=== PATIENT | male | born 1975 | race Caucasian/White ===

== ENCOUNTER 2017-01-06 07:55 | Day surgery (SDC) | payer MEDICARE, OTHER ==
[2016-12-31 15:57] VITALS: BMI 36.5
[~2017-01-06 07:55] MED LIST: LACTATED RINGERS 1,000 ML IV SCH; LIDOCAINE 1% 20 ML VIAL (10MG/ML) FOR IV START INTRADERMA PRN
[2017-01-06 08:18] VITALS: RESP 16; TEMP 98.6
[2017-01-06] MEDS ORDERED: LIDOCAINE 1% INJ 10MG/ML (20 ML MDV) ONE (08:49)
[2017-01-06] MEDS ORDERED: PROPOFOL 10 MG/ML 20 ML VIAL IV ONE (08:49)
--- NOTE | 2017-01-06 08:53 | P.GSHP ---
History of Present Illness H&P Date: 01/06/17 Chief Complaint: GI bleed This a 41-year-old male referred from Dr. Leonor blount. Patient presents today for colonoscopy. He's had issues with rectal bleeding. - Constitutional Constitutional: Reports as per HPI Past Medical History Past Medical History: Thyroid Disorder Additional Past Medical History / Comment(s): CONSTIPATION, BLOOD IN STOOL, CHRONIC BACK PAIN, History of Any Multi-Drug Resistant Organisms: None Reported Past Surgical History: Back Surgery, Cholecystectomy, Orthopedic Surgery Additional Past Surgical History / Comment(s): RT KNEE ARTHROSCOPY Past Anesthesia/Blood Transfusion Reactions: No Reported Reaction Past Psychological History: No Psychological Hx Reported Smoking Status: Current every day smoker Past Alcohol Use History: Rare Additional Past Alcohol Use History / Comment(s): STARTED SMOKING IN 20'S, SMOKES 5-6 CIGARETTES A DAY Past Drug Use History: None Reported - Past Family History Mother Family Medical History: No Reported History Medications and Allergies Home Medications Medication Instructions Recorded Confirmed Type Levothyroxine 0.5 mg PO DAILY 12/31/16 01/06/17 History Allergies Allergy/AdvReac Type Severity Reaction Status Date / Time Penicillins Allergy Unknown Verified 01/06/17 08:03 Childhood pregabalin [From Lyrica] Allergy Dyspnea Verified 01/06/17 08:03 codeine AdvReac Nausea & Verified 01/06/17 08:03 Vomiting Surgical - Exam Vital Signs Temp Pulse Resp BP Pulse Ox 98.6 F 110 H 16 137/81 95 01/06/17 08:16 01/06/17 08:16 01/06/17 08:16 01/06/17 08:16 01/06/17 08:16 - General well developed, no distress - Eyes PERRL - ENT normal pinna - Neck no masses - Respiratory normal expansion - Cardiovascular Rhythm: regular - Abdomen Abdomen: soft, non tender Assessment and Plan Plan: Family. We'll perform flexible colonoscopy.
--- NOTE | 2017-01-06 09:08 | P.OP ---
Date of Procedure: 01/06/17 Preoperative Diagnosis: GI bleed Postoperative Diagnosis: Internal and external hemorrhoids Procedure(s) Performed: Colonoscopy Anesthesia: MAC Surgeon: Cristian Huggins Pathology: none sent Condition: stable Disposition: PACU Description of Procedure: Patient's placed on the endoscopy table lateral position. He received IV sedation. Digital rectal exam was performed which revealed internal and external hemorrhoids. The prostate was symmetrical without nodules. Flexible colonoscope was then placed patient anus passed throughout the entire colon. The ileocecal valve was visualized. The cecum, ascending and transverse and descending colon appeared normal. Sigmoid colon and rectum was normal. There is no blood seen in the colon. There no polyps or diverticula. Scope was withdrawn and internal and external hemorrhoids noted.
[2017-01-06 09:30] VITALS: BP 118/76; PULSE 75
== END 2017-01-06 09:42 | disposition home or self-care (01) ==
LOC: ORWHC2ENDO 07:55
PROVIDERS: ATTEND Surgery
DX: K64.8 Other hemorrhoids (principal); K64.4 Residual hemorrhoidal skin tags; K92.1 Melena; E07.9 Disorder of thyroid, unspecified; F17.210 Nicotine dependence, cigarettes, uncomplicated; Z88.5 Allergy status to narcotic agent; Z88.0 Allergy status to penicillin; Z88.8 Allergy status to other drugs, medicaments and biological substances; Z79.899 Other long term (current) drug therapy
CPT/HCPCS: 45378; J2001; J2704

== ENCOUNTER 2018-02-15 07:43 | Day surgery (SDC) | payer MEDICARE ==
[2018-02-11 14:51] VITALS: BMI 36.0
[2018-02-15 08:27] VITALS: TEMP 96.6
[2018-02-15] MEDS: LACTATED RINGERS 1,000 ML IV SCH ×2 (08:32→08:35)
[2018-02-15] MEDS ORDERED: GLYCOPYRROLATE 0.2 MG/ML 2 ML VIAL ONE (08:39)
[2018-02-15] MEDS ORDERED: LIDOCAINE 1% INJ 10MG/ML (20 ML MDV) ONE (08:39)
[2018-02-15] MEDS ORDERED: PROPOFOL 10 MG/ML 20 ML VIAL IV ONE (08:39)
--- NOTE | 2018-02-15 08:43 | P.GSHP ---
History of Present Illness H&P Date: 02/15/18 Chief Complaint: Dysphagia This is a 42-year-old male referred from Dr. Leonor blount. Patient does today for EGD. He's had some issues of dysphagia. Patient feels like food is being stuck in his upper and lower esophagus. He denies any significant history of heartburn. Past Medical History Past Medical History: Osteoarthritis (OA), Thyroid Disorder Additional Past Medical History / Comment(s): CHRONIC BACK PAIN, MIGRAINE HEADACHE ,SOME TROUBLE SWALLOWING History of Any Multi-Drug Resistant Organisms: None Reported Past Surgical History: Back Surgery, Cholecystectomy, Orthopedic Surgery Additional Past Surgical History / Comment(s): RT KNEE ARTHROSCOPY Past Anesthesia/Blood Transfusion Reactions: No Reported Reaction Smoking Status: Current every day smoker - Past Family History Mother Family Medical History: No Reported History Medications and Allergies Home Medications Medication Instructions Recorded Confirmed Type Levothyroxine Sodium [Synthroid] 50 mcg PO DAILY 02/11/18 02/15/18 History Allergies Allergy/AdvReac Type Severity Reaction Status Date / Time Penicillins Allergy Unknown Verified 02/15/18 08:21 Childhood pregabalin [From Lyrica] Allergy Dyspnea Verified 02/15/18 08:21 codeine AdvReac Nausea & Verified 02/15/18 08:21 Vomiting Surgical - Exam Vital Signs Temp Pulse Resp BP Pulse Ox 96.6 F L 102 H 18 123/79 95 02/15/18 08:25 02/15/18 08:25 02/15/18 08:25 02/15/18 08:25 02/15/18 08:25 - General well developed, no distress - Eyes PERRL - ENT normal pinna - Neck no masses - Respiratory normal expansion - Cardiovascular Rhythm: regular - Abdomen Abdomen: soft, non tender Assessment and Plan Assessment: Dysphagia. We'll perform EGD.
--- NOTE | 2018-02-15 08:56 | P.OP ---
Date of Procedure: 02/15/18 Preoperative Diagnosis: Dysphagia Postoperative Diagnosis: Antral gastritis Retained gastric food No evidence of hiatal hernia Procedure(s) Performed: EGD Anesthesia: MAC Surgeon: Cristian Huggins Pathology: other (Antrum, esophagus) Condition: stable Disposition: PACU Description of Procedure: The patient's placed on the endoscopy table in the lateral position. He received IV sedation. The gastroscope placed oropharynx and passed into the esophagus into the stomach. Scope was then placed through the pylorus. The first and second portion of the duodenum appeared normal. Scope was then brought back the antrum and this appeared mildly inflamed. A biopsies performed. The scope was then retroflexed and the remainder of the stomach appeared normal. There was no significant hiatal hernia. The GE junction was at 40 cm. The distal esophagus appeared normal a biopsies performed. The proximal esophagus appeared normal. Scope was withdrawn from patient.
[2018-02-15 09:15] VITALS: BP 124/85; PULSE 86; RESP 16
== END 2018-02-15 09:39 | disposition home or self-care (01) ==
LOC: ORWHC2ENDO 07:43
PROVIDERS: ATTEND Surgery
DX: K29.50 Unspecified chronic gastritis without bleeding (principal); K20.9 Esophagitis, unspecified; M19.90 Unspecified osteoarthritis, unspecified site; E07.9 Disorder of thyroid, unspecified; M54.9 Dorsalgia, unspecified; G89.29 Other chronic pain; G43.909 Migraine, unspecified, not intractable, without status migrainosus; F17.200 Nicotine dependence, unspecified, uncomplicated; Z79.890 Hormone replacement therapy; Z88.0 Allergy status to penicillin; Z88.8 Allergy status to other drugs, medicaments and biological substances; Z88.5 Allergy status to narcotic agent
CPT/HCPCS: 88305; 43239; J2001; J2704

== ENCOUNTER → 2018-02-17 | Outpatient (CLI) | payer MEDICARE ==
--- NOTE | 2018-02-17 11:48 | FL ---
EXAMINATION: Cervical and Thoracic Esophagram DATE OF EXAM: 02/17/2018 CLINICAL INDICATION: 42-year-old male with trouble swallowing and upper abdominal bloating. Dysphagia . Slow digestion for 2 months. COMPARISON: None Total Fluoroscopy Time: 1 minute 2 seconds Total images: 23 FINDINGS: The swallowing mechanism is normal and hypopharyngeal anatomy is preserved. The cervical and thoracic portions have a normal course and caliber and normal motility. The mucosa is normal and no persistent filling defect is encountered. No hiatal hernia is present. No gastroesophageal reflux is identified after Valsalva and positional maneuvers. IMPRESSION: Unremarkable esophagram.
== END | disposition home or self-care (01) ==
LOC: RADFLMAIN 10:34
PROVIDERS: ATTEND Surgery
DX: R13.10 Dysphagia, unspecified (principal)
CPT/HCPCS: 74220

== ENCOUNTER → 2020-03-28 | Outpatient (CLI) | payer MEDICARE ==
[2020-03-28 07:50] LABS: African American GFR (CKD) >90 (>60 ml/min/1.73 sqM); Blood Urea Nitrogen 6 mg/dL (9-20); Non-African American GFR(CKD) >90 (>60 ml/min/1.73 sqM)
--- NOTE | 2020-03-28 09:32 | CT ---
EXAMINATION TYPE: CT abdomen wo/w con DATE OF EXAM: 03/28/2020 COMPARISON: 05/10/2013 HISTORY: 44-year-old male D4 9.519, Renal stromal tumor TECHNIQUE: Contiguous axial scanning of the abdomen and pelvis following administration of 100 ml Omn ipaque 300 IV contrast. Delayed images through the kidneys and coronal/sagittal reconstructions perf ormed. CT DLP: 2367 mGycm Automated exposure control for dose reduction was used. FINDINGS: Heart normal size without pericardial effusion. Bilateral calcified hilar lymph nodes and scattered c alcified pulmonary nodules compatible with prior granulomatous disease. No pleural effusion. Diffuse low attenuation of the hepatic parenchyma compatible with fatty infiltration. Portal venous s ystem is patent. No biliary ductal dilatation. Cholecystectomy clips. Adrenal glands, left kidney, and pancreas appear within normal limits. Spleen mildly enlarged at 14.8 cm on coronal series. Right kidney shows a very subtle round cortical hypodensity measuring approximately 2.2 cm located al bonnie the anterior upper to mid pole. In retrospect, this seems to have measured 1.4 cm on 05/10/2013. No dilated small bowel, free fluid, or free air. No mesenteric or retroperitoneal lymphadenopathy. Normal appendix. No significant stool burden. Partially visualized left-sided colonic diverticulosis. No pericolonic inflammatory change. Pelvis is not imaged. Bones: No osseous destructive process. IMPRESSION: 1. VERY SUBTLE ROUND 2.2 CM LESION in the anterior upper to mid pole of the right kidney. In retrospe ct, this may have measured 1.4 cm in 2013. A benign etiology is favored given the very indolent behav ior. Ongoing surveillance can be performed, consider follow-up every 1 - 2 years, possibly with MRI. 2. Mild left-sided colonic diverticulosis. 3. Mild splenic vein at 14.8 cm. 4. Hepatic steatosis. 5. Prior granulomatous disease in the chest.
== END | disposition home or self-care (01) ==
LOC: RADCTMAIN 06:40
PROVIDERS: ATTEND Family Medicine
DX: K57.30 Diverticulosis of large intestine without perforation or abscess without bleeding (principal); K76.0 Fatty (change of) liver, not elsewhere classified; N28.9 Disorder of kidney and ureter, unspecified; D49.519 Neoplasm of unspecified behavior of unspecified kidney
CPT/HCPCS: 82565; 84520; 74170; Q9967

== ENCOUNTER 2024-05-09 16:00 | Emergency (ER) | payer MEDICARE ==
[2024-05-09] MEDS ORDERED: KETOROLAC 15 MG/ML 1 ML VIAL ONE (18:40)
[2024-05-09] MEDS ORDERED: ORPHENADRINE 30 MG/ML 2 ML VIAL ONE (18:40)
--- NOTE | 2024-06-15 13:12 | XR ---
Patient Marco Castillo ID [id number] Order # EXAMINATION TYPE: XR knee complete RT DATE OF EXAM: 05/22/2024 COMPARISON: No comparison available on downtime PACS. HISTORY: Right knee injury TECHNIQUE: 3 view right knee FINDINGS: Joint spaces are preserved. No acute fracture or dislocation is evident. No joint effusion is evident. Soft tissues appear normal. Follow-up exams can be performed 7-10 days from acute trauma for continued pain. IMPRESSION: 1. No acute osseous abnormality right knee
== END 2024-05-09 21:05 | disposition home or self-care (01) ==
LOC: EC 16:00
CPT/HCPCS: 99283

== ENCOUNTER → 2024-05-13 | Outpatient (CLI) | payer MEDICARE | END | disposition home or self-care (01) | LOC: LABWHC1 11:31 | PROVIDERS: ATTEND Family Medicine | DX: Z01.818 Encounter for other preprocedural examination | CPT/HCPCS: 36415; 80051; 85025 ==

== ENCOUNTER 2024-05-19 12:30 | Day surgery (SDC) | payer MEDICARE ==
[~2024-05-19 12:30] MED LIST changes: +DEXAMETHASONE SOD PHOSPHATE 4 MG/ML 1 ML VIAL ONE; +LACTATED RINGERS 1,000 ML BAG ONE; -LACTATED RINGERS 1,000 ML IV SCH; -LIDOCAINE 1% 20 ML VIAL (10MG/ML) FOR IV START INTRADERMA PRN; +ONDANSETRON 4 MG/2 ML VIAL ONE
[2024-05-19] MEDS ORDERED: MIDAZOLAM 2 MG/2 ML VIAL ONE (12:35)
[2024-05-19] MEDS ORDERED: SUCCINYLCHOLINE CHLORIDE 200 MG/10 ML VIAL IV ONE (12:35)
[2024-05-19] MEDS ORDERED: HYDROmorphone (PF) 1 MG/ML ONE (12:35)
[2024-05-19] MEDS ORDERED: fentaNYL (PF) 50 MCG/ML 2 ML AMP ONE (12:35)
[2024-05-19] MEDS ORDERED: PROPOFOL 10 MG/ML 20 ML VIAL IV ONE (12:35)
[2024-05-19] MEDS ORDERED: LIDOCAINE 1% INJ 10MG/ML (20 ML MDV) ONE (12:35)
[2024-05-19] MEDS ORDERED: BUPIVACAINE (PF) 0.25% 30 ML VIAL ONE (12:40)
[2024-05-19] MEDS ORDERED: HYDROmorphone 0.5 MG/0.5 ML SYRINGE ONE ×2 (13:45→14:06)
[2024-05-19] MEDS ORDERED: METOPROLOL TARTRATE 5 MG/5 ML VIAL IVP ONE (14:26)
--- NOTE | 2024-06-17 09:58 | OP ---
OPERATIVE REPORT DATE OF SERVICE : 05/19/2024 PREOPERATIVE DIAGNOSIS: Internal derangement, right knee. POSTOPERATIVE DIAGNOSES: 1. Tear, medial and lateral meniscus, right knee. 2. Reactive synovitis, medial, lateral and suprapatellar compartments, right knee. PROCEDURES PERFORMED: 1. Arthroscopic partial medial and lateral meniscectomy, right knee. 2. Arthroscopic partial synovectomy, medial, lateral and suprapatellar compartments, right knee. ANESTHESIA: General. COMPLICATIONS: None. ESTIMATED BLOOD LOSS: 8 mL. The patient tolerated the procedure well. INDICATIONS: Marco Castillo is a gentleman seen with progressive right knee pain. We discussed options. He elected to proceed with arthroscopy. Consent was obtained. DESCRIPTION OF PROCEDURE: The patient was taken to the operative suite. He underwent a general anesthetic by the primary anesthesia. He received preoperative IV antibiotics. The right lower extremity was placed in a well-padded leg nunn. The right lower extremity was prepped and draped in normal sterile orthopedic fashion. A lateral parapatellar incision was made. Trocar was inserted. Arthroscopy initiated. Suprapatellar compartment revealed diffuse reactive synovitis. Patellofemoral joint articulated congruently with grade 1 chondromalacia. Scope was guided into lateral and the medial gutter, no loose bodies. Scope was guided into medial compartment. Medial parapatellar incision was made. Trocar inserted followed by a probe. There was a radial tear, posterior medial meniscus, grade 1 chondromalacia, medial femoral condyle, thick reactive synovitis anteriorly, no loose bodies. I performed a partial medial meniscectomy, getting down a stable meniscal tissue. I performed a partial synovectomy decompressing the reactive synovitis. The residual meniscus was probed and was found to be stable. There was good decompression of synovitis. The scope was not guided into the intercondylar notch. ACL and PCL were identified, probed stable. Scope was guided into the lateral compartment, small radial tear, midbody of lateral meniscus reactive synovitis anteriorly, no loose bodies. No significant chondromalacia. I performed a partial lateral meniscectomy, getting down a stable meniscal tissue. I performed a partial synovectomy decompressing the reactive synovitis. The shaver was removed. The residual meniscus was stable. There was good decompression of synovitis. The scope was now guided into the lateral gutter, no loose bodies. The scope was guided into the suprapatellar compartment. I introduced a motorized shaver. I performed a partial synovectomy decompressing the thick reactive synovitis. The shaver was removed. There was good decompression of the synovitis. I took 1 more look around the entire knee, no residual debris. Instruments were now removed from the knee. The portal sites were approximated with Steri-Strips. The joint was infiltrated with 0.25% plain Marcaine. Sterile dressings were applied followed by DARRON hose. The patient was awakened, transferred to a bed, then recovery in stable condition. MMODL / IJN: [id number] /
--- NOTE | 2024-06-20 10:13 | HP ---
HISTORY AND PHYSICAL DATE OF PROPOSED SURGERY: 05/19/2024. SUBJECTIVE: The patient is a gentleman seen with progressive right knee pain. We discussed options regarding treatment. He elected to proceed with right knee arthroscopy. Consent is obtained. PAST MEDICAL HISTORY: Noncontributory. PAST SURGICAL HISTORY: Noncontributory. MEDICATIONS: As per his chart. PHYSICAL EVALUATION OF THE RIGHT KNEE: Range of motion 0 to 130 degrees. Tenderness along the medial joint line. Positive medial Jamison's. Mild effusion. Distal neurovascular exam is intact. IMAGING STUDIES: Radiographs of the right knee revealed osteoarthritic changes. IMPRESSION: Internal derangement of right knee with medial meniscal tear. PLAN: Right knee arthroscopy with partial medial meniscectomy and debridement. MMODL / IJN: [id number] /
== END 2024-05-19 15:34 ==
LOC: OR 12:30
PROVIDERS: ATTEND Orthopaedic Surgery
DX: S83.241A Other tear of medial meniscus, current injury, right knee, initial encounter (principal); S83.281A Other tear of lateral meniscus, current injury, right knee, initial encounter; M65.161 Other infective (teno)synovitis, right knee; F17.210 Nicotine dependence, cigarettes, uncomplicated; Z88.0 Allergy status to penicillin; Z88.5 Allergy status to narcotic agent; Z79.890 Hormone replacement therapy; Z79.899 Other long term (current) drug therapy; X58.XXXA Exposure to other specified factors, initial encounter

== ENCOUNTER 2024-10-10 12:47 | Inpatient (IN) | payer MEDICARE ==
[2024-10-10] MEDS: SODIUM CHLORIDE 0.9% 1,000 ML IV ONE ×2 (13:23→17:50)
[2024-10-10] MEDS: IV FLUID CONTINUATION 1,000 ML IV ONE (17:50)
--- NOTE | 2024-10-10 20:08 | XR ---
EXAMINATION TYPE: XR chest 2V DATE OF EXAM: 10/10/2024 7:49 PM CLINICAL INDICATION:Male, 49 years old with history of PreOp Cardiac Surgery; [facility] COMPARISON: None TECHNIQUE: XR chest 2V Frontal view of the chest. FINDINGS: Lungs/Pleura: There is no evidence of pleural effusion, focal consolidation, or pneumothorax. Pulmonary vascularity: Unremarkable. Heart/mediastinum: Cardiomediastinal silhouette is unremarkable. Musculoskeletal: No acute osseous pathology. Other findings: None IMPRESSION: No acute cardiopulmonary disease/process. [facility], , 10/10/2024 8:06 PM
[2024-10-10 21:26] LABS: Basophils # (A) 0.1 k/uL (0-0.2); Basophils % (A) 1 %; Eosinophils # (A) 0.2 k/uL (0-0.7); Eosinophils % (A) 1 %; HGB 16.2 gm/dL (13.0-17.5); Lymphocytes # (A) 2.2 k/uL (1.0-4.8); Lymphocytes % (A) 16 %; MCH 31.5 pg (25.0-35.0); MCHC 33.1 g/dL (31.0-37.0); MCV 95.3 fL (80.0-100.0); Mean Platelet Volume 7.7; Monocytes # (A) 0.8 k/uL (0-1.0); Monocytes % (A) 5 %; Neutrophils # (A) 10.8 k/uL (1.3-7.7); Neutrophils % (A) 76 %; Platelet Count 205 k/uL (150-450); RBC 5.14 m/uL (4.30-5.90); RDW 12.5 % (11.5-15.5); WBC 14.2 k/uL (3.8-10.6)
[2024-10-10] MEDS: HEPARIN SOD,PORK IN 0.45% NACL 25,000 UNIT in 0.45% NACL 1 250ML.BAG IV SCH (21:30)
[2024-10-10] MEDS: MUPIROCIN 2% OINT 22 GM TUBE NASAL SCH (21:30)
[2024-10-10 21:36] LABS: Prothrombin Time 11.3 sec (10.0-12.5)
[2024-10-10 21:51] LABS: ALT 25 U/L (4-49); AST 44 U/L (17-59); African American GFR (CKD) >90 (>60 ml/min/1.73 sqM); Alkaline Phosphatase 113 U/L (38-126); Anion Gap 11 mmol/L; Blood Urea Nitrogen 8 mg/dL (9-20); Calcium 9.1 mg/dL (8.4-10.2); Carbon Dioxide 19 mmol/L (22-30); Chloride 102 mmol/L (98-107); Glucose 326 mg/dL (74-99); Magnesium 1.9 mg/dL (1.6-2.3); Non-African American GFR(CKD) >90 (>60 ml/min/1.73 sqM); Potassium 4.3 mmol/L (3.5-5.1); Sodium 132 mmol/L (137-145); Total Bilirubin 0.8 mg/dL (0.2-1.3); Total Protein 6.5 g/dL (6.3-8.2)
--- NOTE | 2024-10-10 22:25 | US ---
EXAMINATION TYPE: US carotid duplex BILAT DATE OF EXAM: 10/10/2024 COMPARISON: NONE CLINICAL INDICATION: Male, 49 years old with history of Pre-Op Cardiac Surgery; Open heart Additional History: .... TECHNIQUE: Grayscale, color Doppler and spectral Doppler evaluation of the bilateral carotid systems and vertebral arteries. Indirect Doppler criteria was utilized. 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 Spectral waveforms are within normal limits. IMPRESSION: No hemodynamically significant stenosis of either internal carotid artery. Velocities are listed tree ozuna [facility], , 10/10/2024 10:22 PM
--- NOTE | 2024-10-10 22:26 | US ---
EXAMINATION TYPE: Pre-Operative Non-Invasive Evaluation of the hand for Potential Radial Artery [place], Measurements only DATE OF EXAM: 10/10/2024 8:27 PM CLINICAL INDICATION: Male, 49 years old with history of Pre-Op Cardiac Surgery; Open heart, Preop- Ca rdiac Surgery TECHNIQUE:Grayscale and color Doppler imaging of the radial artery(s) SIDE PERFORMED: Left FINDINGS: Duplex Findings: Radial Artery: Color flow seen. Triphasic waveforms are appreciated. Measurements in mm, transverse view: Left Radial: Proximal: 2 x 3 mm Mid: 3 x 3 mm Distal: 3 x 3 mm Proximal slightly limited due to tape at the antecubital fossa IMPRESSION: 1. No evidence for vascular occlusion. 2. Measurements as described above. [facility], , 10/10/2024 10:24 PM
--- NOTE | 2024-10-10 22:29 | US ---
EXAMINATION TYPE: US arterial LE single level DATE OF EXAM: 10/10/2024 9:35 PM COMPARISONS: None. CLINICAL INDICATION: Male, 49 years old with history of Ankle Brachial Index (MARITZA) ; Open heart, MARITZA TECHNIQUE: Systolic pressures were taken of the upper and lower extremity arteries with ankle-brachia l indices and toe brachial indices calculated bilaterally. History of: Smoker: Current Smoker Hypertension: No Diabetic: Yes Hyperlipidemia: No TIA/CVA: No Previous Vascular Surgery: No CAD: No MT: Yes Vascular Ulcers: No Claudication: No Gangrene: No FINDINGS: Brachial Artery systolic pressure: Right: Deferred due to right radial approach Left: 125 Posterior Tibial artery systolic pressure: Right: 162 Left: 151 Dorsalis Pedis artery systolic pressure: Right: 158 Left: 160 Ankle-Brachial Indices: Right: 1.3 Left: 1.3 IMPRESSION: MARITZA: Right: 1.3, please see pressure values listed above. Left: 1.3, please see pressure values listed above. [facility], , 10/10/2024 10:26 PM
--- NOTE | 2024-10-10 22:34 | US ---
EXAMINATION TYPE: US vein mapping BILAT DATE OF EXAM: 10/10/2024 8:27 PM COMPARISON: NONE CLINICAL INDICATION: Male, 49 years old with history of PreOp Cardiac Surgery; Open heart, Preop- Car diac Surgery TECHNIQUE: Grayscale and color Doppler imaging of the lower extremity venous system. SIDE PERFORMED: Bilateral FINDINGS: DUPLEX FINDINGS: Greater Saphenous: Color flow seen Lesser Saphenous: Color flow seen Measurements in mm: Right Greater Saphenous: Groin: 7 x 8 mm High Thigh: 6 x 5 mm Mid Thigh: 4 x 5 mm Above Knee: 4 x 5 mm Knee: 4 x 5 mm Below Knee: 4 x 5 mm Mid Calf: 2 x 4 mm At Ankle: 2 x 2 mm Left Greater Saphenous: Groin: 5 x 6 mm High Thigh: 6 x 7 mm Mid Thigh: 6 x 7 mm Above Knee: 5 x 6 mm Knee: 4 x 5 mm Below Knee: 4 x 5 mm Mid Calf: 2 x 3 mm At Ankle: 3 x 4 mm IMPRESSION: 1. No evidence for occlusion. 2. GSV measurements listed above. 3. Performing surgeon to determine viability as conduit. [facility], , 10/10/2024 10:31 PM
[2024-10-11 03:03] LABS: Hepatitis A Antibody IgM Nonreactive (Nonreactive); Hepatitis B Core IgM Nonreactive (Nonreactive); Hepatitis B Surface Antigen Nonreactive (Nonreactive); Hepatitis C IgG Antibody Nonreactive (Nonreactive)
[2024-10-11 03:46] LABS: Chol/HDL Ratio 6.13 Ratio; LDL Cholesterol,Calculated 81.6 mg/dL (0.0-131.0)
[2024-10-11] MEDS: HEPARIN SODIUM 1,000 UN/ML (10ML VL) IV PRN (04:40)
[2024-10-11 05:54] LABS: Glucose,Whole Blood 315 mg/dL (70-110)
[2024-10-11] MEDS ORDERED: DEXTROSE 50% SYRINGE 50 ML IVP PRN ×4 (06:26→14:59)
[2024-10-11] MEDS: INSULIN ASPART (NovoLOG) 100 UNIT/ML VIAL SQ SCH (06:44)
--- NOTE | 2024-10-11 08:23 | CT ---
EXAMINATION TYPE: CT chest wo con DATE OF EXAM: 10/11/2024 COMPARISON: Radiograph 10/10/2024 HISTORY: 49-year-old male shortness of breath, Evaluate aorta preoperative CABG TECHNIQUE: Contiguous axial scanning of the chest without IV contrast. Coronal/sagittal reconstructio ns performed. CT DLP: 724.1mGycm. Automatic exposure control utilized for a dose reduction. FINDINGS: The heart is normal size without pericardial effusion. Proximal LAD coronary artery calcifications ar e demonstrated. Aortic root borderline aneurysmal 4.0 cm. Ascending aorta mildly aneurysmal 4.1 cm. Conventional arch vessel branching anatomy. A few calcified mediastinal and hilar lymph nodes are noted. No thoracic lymphadenopathy by CT size c riteria. A few scattered calcified granulomas are noted. Mild centrilobular nodularity is suggested in the lela gs no consolidation or pleural effusion. Minimal emphysematous change. A couple pulmonary nodules measuring up to 4 mm appear noncalcified. For example, left midlung, axial images 36 and 37. Visualized upper abdomen shows a few calcified granulomas within the spleen and cholecystectomy clips . A hypodensity round cortical lesion 2.6 cm anterior right kidney could represent a complicated cyst or solid mass and can be further evaluated with ultrasound. Left-sided colonic diverticulosis. Bones: No osseous destructive process. IMPRESSION: 1. COPD with minimal emphysema. Some subtle centrilobular nodularity may be seen with respiratory bro nchiolitis associated with smoking. Clinically correlate. 2. Numerous scattered calcified granulomas in the lungs. A couple nodules measuring up to 4 mm are no ncalcified but also probably related to previous granulomatous disease. Recommend 6 month follow-up C T to reassess. 3. Mildly aneurysmal ascending aorta up to 4.1 cm. 4. Recommend renal ultrasound to further evaluate a 2.6 cm anterior right kidney lesion. Either solid mass or a hemorrhagic cyst. [facility], , 10/11/2024 8:21 AM
[2024-10-11] MEDS: LACTATED RINGERS 1,000 ML IV ONE (08:40)
--- NOTE | 2024-10-11 08:42 | P.GSCN ---
History of Present Illness Consult date: 10/11/24 Reason for Consult: Multivessel coronary artery disease, non-ST elevated myocardial infarction this admission Requesting physician: Tomer Urbina History of present illness: This is a 49-year-old gentleman who follows on an outpatient basis with Dr. Leonor Brandon for his primary care. He has a past medical history significant for hypertension, hyperlipidemia, diabetes mellitus type 2 untreated, chronic ongoing tobacco dependence, smokes 1 pack of cigarettes per day, daily marijuana use with Gummies, spinal stenosis, status postlaminectomy, and family history of early onset coronary artery disease with his dad having undergone coronary artery bypass grafting surgery in his early 50s and his brother having a myocar dial infarction in his early 50s. The patient presented to [facility] yesterday October 10, 2024 with complaints of heartburn and recurrent chest discomfort which has been off and on for the past 2 or 3 weeks. He denies any recent fever, chills, nausea, vomiting, diarrhea, headache, visual disturbances, hemoptysis, hematemesis, cough, shortness of breath, diaphoresis, presyncope or syncope. He was found to have an abnormal EKG, and his troponin was elevated at 4026 ruling him in for a non-ST elevated myocardial infarction. Due to the patient's presenting symptoms and elevated troponins a consult was placed to Dr. Roth from cardiology. A transthoracic 2D echocardiogram was completed which showed akinesis in the basal inferior and basal to mid inferior septal wall, moderate concentric left ventricular hypertrophy, left ventricular systolic function to be mild to moderately decreased with an ejection fraction of 40 to 45%. It also showed trace mitral valve regurgitation, trace tricuspid valve regurgitation, trace pulmonic valve regurgitation, and trace aortic valve regurgitation. For further evaluation the patient was recommended undergo a cardiac catheterization which was completed yesterday 10/10/2024 which revealed a totally occluded distal right coronary artery, his left anterior descending coronary artery to have a long tubular lesion which appeared to be in the range of 80 to 90% stenosis, and his left circumflex to be a large-caliber vessel with severe disease involving the OM 2 and intermediate disease involving the proximal left circumflex. The patient was subsequently transferred to [facility] for further evaluation and treatment recommendations including myocardial vascularization. A consult was placed to Dr. Fadi Fink from cardiothoracic surgery for further evaluation. Review of Systems A review of systems was completed and was negative except as mentioned in the HPI. Past Medical History Past Medical History: Diabetes Mellitus (Not treated), Hyperlipidemia, Hypertension, Osteoarthritis (OA), Thyroid Disorder Additional Past Medical History / Comment(s): CHRONIC BACK PAIN, MIGRAINE HEADACHE ,SOME TROUBLE SWALLOWING History of Any Multi-Drug Resistant Organisms: None Reported Past Surgical History: Back Surgery, Cholecystectomy, Orthopedic Surgery Additional Past Surgical History / Comment(s): RT KNEE ARTHROSCOPY Past Anesthesia/Blood Transfusion Reactions: No Reported Reaction Past Psychological History: No Psychological Hx Reported Smoking Status: Current every day smoker Past Alcohol Use History: Rare Additional Past Alcohol Use History / Comment(s): STARTED SMOKING IN 25 SMOKES 5-10 CIGARETTES A DAY Past Drug Use History: Marijuana Additional Drug Use History / Comment(s): OCCASIONAL USE - Past Family History Mother Family Medical History: No Reported History Father Family Medical History: Coronary Artery Disease (CAD) Brother(s) Family Medical History: Coronary Artery Disease (CAD), Myocardial Infarction ([place]) Medications and Allergies Home Medications Medication Instructions Recorded Confirmed Type Meloxicam [Mobic] 15 mg PO DAILY PRN 10/10/24 10/10/24 History Allergies Allergy/AdvReac Type Severity Reaction Status Date / Time Penicillins Allergy Anaphylaxis Verified 10/10/24 19:38 pregabalin [From Lyrica] Allergy Dyspnea Verified 10/10/24 19:38 codeine AdvReac Nausea & Verified 10/10/24 19:38 Vomiting Surgical - Exam Vital Signs Temp Pulse Resp BP Pulse Ox 98.6 F 84 16 129/82 96 10/10/24 12:18 10/10/24 12:18 10/10/24 12:18 10/10/24 12:18 10/10/24 12:18 - General well developed, well nourished, no distress, no pain, chronically ill, obese - Eyes PERRL, normal ocular movement, no pale, no icteric - ENT Neck is supple, no lymphadenopathy. normal pinna, normal nares, normal mucosa, no hearing loss, no congestion, poor fci - Neck no masses, no bruits, trachea midline, no venous distension - Cardiovascular Regular rhythm and rate. S1 and S2 present, negative for S3, gallop or murmur. - Abdomen Abdomen is soft, nontender and nondistended. Active bowel sounds present all 4 abdominal quadrants. No guarding rigidity. No organomegaly appreciated. - Genitourinary Deferred - Rectum Deferred - Integumentary Skin is warm and dry. No clubbing or cyanosis is present. no rash, no growths, no abnormal pigmentation - Neurologic No focal deficits. - Musculoskeletal Moves all 4 extremities with equal strength bilateral. - Psychiatric oriented to time, oriented to person, oriented to place, speech is normal, memory intact Results - Labs 10/10/24 20:54 10/10/24 20:54 Abnormal Lab Results - Last 24 Hours (Table) 10/10/24 10/10/24 10/10/24 Range/Units 20:54 20:54 20:54 WBC 14.2 H (3.8-10.6) k/uL Neutrophils # 10.8 H (1.3-7.7) k/uL APTT (22.0-30.0) sec Sodium 132 L (137-145) mmol/L Carbon Dioxide 19 L (22-30) mmol/L BUN 8 L (9-20) mg/dL Glucose 326 H (74-99) mg/dL POC Glucose (mg/dL) (70-110) mg/dL Hemoglobin A1c 9.4 H (<=6.0) % Triglycerides 274.00 H (0.00-149.00) mg/dL VLDL Cholesterol, Calc 54.80 H (5.00-40.00) mg/dL HDL Cholesterol 26.60 L (40.00-60.00) mg/dL 10/11/24 10/11/24 Range/Units 03:07 05:53 WBC (3.8-10.6) k/uL Neutrophils # (1.3-7.7) k/uL APTT 33.4 H (22.0-30.0) sec Sodium (137-145) mmol/L Carbon Dioxide (22-30) mmol/L BUN (9-20) mg/dL Glucose (74-99) mg/dL POC Glucose (mg/dL) 315 H (70-110) mg/dL Hemoglobin A1c (<=6.0) % Triglycerides (0.00-149.00) mg/dL VLDL Cholesterol, Calc (5.00-40.00) mg/dL HDL Cholesterol (40.00-60.00) mg/dL Diabetes panel 10/10/24 10/10/24 Range/Units 20:54 20:54 Sodium 132 L (137-145) mmol/L Potassium 4.3 (3.5-5.1) mmol/L Chloride 102 (98-107) mmol/L Carbon Dioxide 19 L (22-30) mmol/L BUN 8 L (9-20) mg/dL Creatinine 0.74 (0.66-1.25) mg/dL Glucose 326 H (74-99) mg/dL Hemoglobin A1c 9.4 H (<=6.0) % Calcium 9.1 (8.4-10.2) mg/dL AST 44 (17-59) U/L ALT 25 (4-49) U/L Alkaline Phosphatase 113 (38-126) U/L Total Protein 6.5 (6.3-8.2) g/dL Albumin 4.0 (3.5-5.0) g/dL Triglycerides 274.00 H (0.00-149.00) mg/dL HDL Cholesterol 26.60 L (40.00-60.00) mg/dL Thyroid panel 10/10/24 Range/Units 20:54 TSH 1.270 (0.465-4.680) mIU/L Calcium panel 10/10/24 Range/Units 20:54 Calcium 9.1 (8.4-10.2) mg/dL Albumin 4.0 (3.5-5.0) g/dL Pituitary panel 10/10/24 Range/Units 20:54 Sodium 132 L (137-145) mmol/L Potassium 4.3 (3.5-5.1) mmol/L Chloride 102 (98-107) mmol/L Carbon Dioxide 19 L (22-30) mmol/L BUN 8 L (9-20) mg/dL Creatinine 0.74 (0.66-1.25) mg/dL Glucose 326 H (74-99) mg/dL Calcium 9.1 (8.4-10.2) mg/dL TSH 1.270 (0.465-4.680) mIU/L Adrenal panel 10/10/24 Range/Units 20:54 Sodium 132 L (137-145) mmol/L Potassium 4.3 (3.5-5.1) mmol/L Chloride 102 (98-107) mmol/L Carbon Dioxide 19 L (22-30) mmol/L BUN 8 L (9-20) mg/dL Creatinine 0.74 (0.66-1.25) mg/dL Glucose 326 H (74-99) mg/dL Calcium 9.1 (8.4-10.2) mg/dL Total Bilirubin 0.8 (0.2-1.3) mg/dL AST 44 (17-59) U/L ALT 25 (4-49) U/L Alkaline Phosphatase 113 (38-126) U/L Total Protein 6.5 (6.3-8.2) g/dL Albumin 4.0 (3.5-5.0) g/dL - Imaging Chest x-ray: report reviewed, image reviewed Assessment and Plan Assessment: Multivessel coronary artery disease Non-ST elevated myocardial infarction this admission Hypertension Dyslipidemia untreated, triglycerides 274, LDL 54.80 Diabetes mellitus type 2, untreated, hemoglobin A1c 9.4 Obesity with a BMI of 32.9 kg/m Chronic ongoing tobacco dependence Daily marijuana use, Gummies Osteoarthritis Family history of early onset coronary artery disease with his father and his brother both having coronary artery disease in their early 50s Plan: The patient was seen and examined at his bedside on the third floor cardiac stepdown unit. His chart and diagnostics were reviewed. Dr. Fink evaluated the patient last evening at his bedside in the extended stay unit. Dr. Fink discussed the findings on his cardiac catheterization films which were also reviewed by Dr. Fink and Dr. Urbina. Treatment options were discussed with the patient including myocardial vascularization surgery. Risks and benefits of surgery including the STS risk or has been discussed with the patient, knowing and understanding the risks the patient wishes to proceed with the surgical option. A clinical frailty score was calculated which equals 2. The patient will be scheduled for surgery this morning October 11, 2024 for off-pump myoc ardial revascularization surgery with left internal mammary artery, possible left radial artery endoscopic harvest, endoscopic vein harvest, exclusion left atrial appendage and intraoperative transesophageal echocardiogram to be completed by Dr. Fadi Fink. Preoperative testing and preoperative teaching has been initiated. The importance of smoking cessation has been discussed with the patient and he will be offered the number to 1-800quitnow at discharge. Maximize medical management with aspirin, statin and beta-ludivina. Heparin drip management per cardiology. Discontinue heparin drip 2 hours prior to surgery. Medical management other comorbidities per primary care and cardiology service. Thank you Dr. Urbina for this consult and we look forward to working with there in the care of the patient. I have personally seen and examined the patient, performed the documentation and the assessment and plan as written. Number of minutes spent on the visit: 30. LENNY Payne ADDENDUM: Young male presents outside hospital acute inferior [place]. Stable hemodynamics. Cath shows severe 3 vessel disease. Discussed with Dr Urbina. He feels LAD lesion is unstable and recommends urgent CABG. Patient is amenable to surgery. Recently diagnosed with DM but noncompliant with therapy for this. Continues to smoke cigarettes. History of spinal stenosis with multilevel laminectomies, subsequent chronic low back pain and work disability. Uses marijuana for pain. Will proceed with multivessel CABG. Miles's test OK for left radial artery harvest.
[2024-10-11] MEDS: METOPROLOL TARTRATE 12.5 MG TAB PO ONE (08:56)
[2024-10-11] MEDS: ASPIRIN 81 MG PO ONE (08:56)
[2024-10-11] MEDS: ATORVASTATIN 10 MG TAB PO ONE (08:56)
[2024-10-11 08:57] LABS: Glucose,Whole Blood 234 mg/dL (70-110)
--- NOTE | 2024-10-11 09:14 | P.PN ---
Progress Note - Text Progress Note Date: 10/11/24 Patient not seen, patient already off the floor for CABG procedure. Patient diagnosed yesterday with NSTEMI with troponin 4000, abnormal EKG at [facility]. Underwent cardiac catheterization reporting significant multi- vessel disease, recommending CABG and patient was transferred to [facility] yesterday. Patient has a past medical history significant for noncompliant diabetes mellitus, hemoglobin A1c 7.2 in June 2024. PCPs office reports despite strong encouragement, patient declined medical management. Patient also presents with nicotine dependence, 1 pack/day, marijuana Gummies every night, obesity with a BMI of 33, hypertension, hyperlipidemia, osteoarthritis, hypothyroidism, laminectomy, chronic back pain and multiple other medical issues.
[2024-10-11 09:47] LABS: Glucose,Whole Blood 205 mg/dL (70-110)
[2024-10-11] MEDS ORDERED: INSULIN REGULAR 100 UNIT/ML VIAL (IV) ONE (10:02)
[2024-10-11] MEDS ORDERED: ALBUMIN HUMAN 5% (25gm) 500 ML VIAL IVPB ONE (10:02)
[2024-10-11] MEDS ORDERED: PROPOFOL 10 MG/ML 20 ML VIAL IV ONE (10:02)
[2024-10-11] MEDS ORDERED: METOPROLOL TARTRATE 5 MG/5 ML VIAL IVP ONE (10:02)
[2024-10-11] MEDS ORDERED: MIDAZOLAM HCL 10 MG/10 ML VIAL ONE (10:02)
[2024-10-11] MEDS ORDERED: PROTAMINE SULFATE 10 MG/ML 25 ML VIAL IV ONE (10:02)
[2024-10-11] MEDS ORDERED: PHENYLEPHRINE-0.9% NACL SYG 1,000 MCG/10 ML SYRINGE ONE (10:02)
[2024-10-11] MEDS ORDERED: VECURONIUM 10 MG VIAL IV ONE (10:02)
[2024-10-11] MEDS ORDERED: ROCURONIUM 10 MG/ML (5 ML VIAL) IV ONE (10:02)
[2024-10-11] MEDS ORDERED: fentaNYL (PF) 50 MCG/ML 50 ML VIAL ONE (10:02)
[2024-10-11 10:03] LABS: Glucose,Whole Blood 182 mg/dL (70-110)
[2024-10-11] MEDS: ceFAZolin 3 GM in SODIUM CHLORIDE 0.9% 100 ML IVPB ONE (10:09)
--- NOTE | 2024-10-11 10:53 | CA ---
Transthoracic Echo Report Name: Marco Castillo Age: 49 Gender: M : 1975 Exam Date: 10/11/2024 08:10 Exam Location: [place] [facility] Ht (in): 76 Wt (lb): 270 Ordering Physician: Speedy Kay Attending/Referring Phys: Rahul HINES Civil Designer Tracey Tai RDCS Procedure CPT: Indications: evaluate EF and valves preop CABG Cardiac Hx: Technical Quality: Good Contrast 1: Total Dose (mL): Contrast 2: Total Dose (mL): MEASUREMENTS (Male / Female) Normal Values 2D ECHO LV Diastolic Diameter PLAX 5.4 cm 4.2 - 5.9 / 3.9 - 5.3 cm LV Systolic Diameter PLAX 4.7 cm IVS Diastolic Thickness 1.3 cm 0.6 - 1.0 / 0.6 - 0.9 cm LVPW Diastolic Thickness 1.1 cm 0.6 - 1.0 / 0.6 - 0.9 cm LV Relative Wall Thickness 0.5 LVOT Diameter 2.4 cm LV Diastolic Volume MOD BP 160.8 cm??? 67 - 155 / 56 - 104 cm??? LV Systolic Volume MOD BP 121.0 cm??? 22 - 58 / 19 - 49 cm??? LV Ejection Fraction MOD BP 24.8 % >= 55 % LV Cardiac Index MOD BP 1535.8 cm???/min???m??? LV Diastolic Volume MOD 4C 154.9 cm??? LV Systolic Volume MOD 4C 118.0 cm??? LV Ejection Fraction MOD 4C 23.8 % LV Cardiac Index MOD 4C 1421.8 cm???/min???m??? LV Diastolic Length 4C 8.6 cm LV Systolic Length 4C 8.1 cm LV Diastolic Volume MOD 2C 158.2 cm??? LV Systolic Volume MOD 2C 115.4 cm??? LV Ejection Fraction MOD 2C 27.1 % LV Cardiac Index MOD 2C 1650.3 cm???/min???m??? LV Diastolic Length 2C 8.2 cm LV Systolic Length 2C 7.5 cm LA Volume 31.9 cm??? 18 - 58 / 22 - 52 cm??? LA Volume Index 12.3 cm???/m??? 16 - 28 cm???/m??? Ascending Aorta Diameter 4.1 cm DOPPLER AV Peak Velocity 106.1 cm/s AV Peak Gradient 4.5 mmHg AV Mean Velocity 81.9 cm/s AV Mean Gradient 2.8 mmHg AV Velocity Time Integral 14.9 cm LVOT Peak Velocity 98.3 cm/s LVOT Peak Gradient 3.9 mmHg LVOT Velocity Time Integral 14.3 cm LVOT Stroke Volume 65.7 cm??? LVOT Stroke Volume Index 26.1 ml/m??? LVOT Cardiac Index 2531.8 cm???/min???m??? AV Area Cont Eq vti 4.4 cm??? AV Area Cont Eq pk 4.3 cm??? PV Peak Velocity 83.5 cm/s PV Peak Gradient 2.8 mmHg FINDINGS Left Ventricle Left ventricular ejection fraction is estimated at 30-35 %. Mildly increased septal wall thickness. Mildly increased left ventricular diastolic volume. Mid to basal inferior wall hypokinesia Right Ventricle Normal right ventricular size and function. Unable to estimate the right ventricular systolic pressure. Right Atrium Normal right atrial size. Left Atrium Normal left atrial size. Mitral Valve Structurally normal mitral valve. No evidence for mitral valve prolapse. No mitral stenosis. Trace mitral regurgitation. Aortic Valve Trileaflet aortic valve. No aortic valve stenosis or regurgitation. Tricuspid Valve Structurally normal tricuspid valve. No tricuspid stenosis. Trace tricuspid regurgitation. Pulmonic Valve Pulmonic valve not well visualized. No pulmonic stenosis. Trace pulmonic regurgitation. Pericardium No pericardial effusion. Aorta Aortic annulus normal. Ascending aorta mildly enlarged. CONCLUSIONS LVEF 30 to 35% Mid to basal inferior wall hypokinesia Mild concentric LVH Normal RV size and systolic function No significant valvular dysfunction Previewed by: Dr Roman Villalba (Electronically Signed) Final Date: 11 October 2024 10:52
[2024-10-11 10:59] LABS: ABG Base Excess -1.2 mmol/L; ABG Glucose Whole Blood 160 mg/dL (75-99); ABG HCO3 25 mmol/L (21-25); ABG Hematocrit 43 % (34.0-46.0); ABG Ionized Calcium 4.8 mg/dL (4.5-5.3); ABG Lactic Acid Whole Blood 1.2 mmol/L (0.5-1.6); ABG Oxygen Saturation 98.4 % (94-97); ABG PCO2 46 mmHg (35-45); ABG PH 7.34 (7.35-7.45); ABG PO2 133 mmHg (83-108); ABG Potassium Whole Blood 3.7 mmol/L (3.4-4.5); ABG Sodium Whole Blood 138 mmol/L (135-146); ABG TCO2 23 mmol/L (19-24); Allen Test Performed? Yes
[2024-10-11] MEDS: HEPARIN SODIUM,PORCINE (1 ML) 5,000 UNIT in SODIUM CHLORIDE 0.9% 500 ML 500 ML IV ONE (11:07)
[2024-10-11] MEDS: PAPAVERINE 360 MG in SODIUM CHLORIDE 0.9% 90 ML IV ONE (11:07)
[2024-10-11] MEDS: ceFAZolin 1,000 MG in SODIUM CHLORIDE 0.9% IRRIGATIO 1,000 ML IRRIGATION ONE (11:08)
[2024-10-11 11:58] LABS: ABG Base Excess -1.4 mmol/L; ABG Glucose Whole Blood 142 mg/dL (75-99); ABG HCO3 26 mmol/L (21-25); ABG Hematocrit 43 % (34.0-46.0); ABG Ionized Calcium 4.5 mg/dL (4.5-5.3); ABG Lactic Acid Whole Blood 1.1 mmol/L (0.5-1.6); ABG Oxygen Saturation 98.2 % (94-97); ABG PCO2 51 mmHg (35-45); ABG PH 7.31 (7.35-7.45); ABG PO2 141 mmHg (83-108); ABG Sodium Whole Blood 135 mmol/L (135-146); ABG TCO2 23 mmol/L (19-24); Allen Test Performed? Yes
[2024-10-11 12:03] LABS: ABG Base Excess -1.5 mmol/L; ABG Glucose Whole Blood 140 mg/dL (75-99); ABG HCO3 25 mmol/L (21-25); ABG Hematocrit 43 % (34.0-46.0); ABG Ionized Calcium 4.7 mg/dL (4.5-5.3); ABG Lactic Acid Whole Blood 0.9 mmol/L (0.5-1.6); ABG Oxygen Saturation 98.3 % (94-97); ABG PCO2 48 mmHg (35-45); ABG PH 7.32 (7.35-7.45); ABG PO2 139 mmHg (83-108); ABG Potassium Whole Blood 4.6 mmol/L (3.4-4.5); ABG Sodium Whole Blood 137 mmol/L (135-146); ABG TCO2 23 mmol/L (19-24); Allen Test Performed? Yes
[2024-10-11 12:25] LABS: ABG Base Excess -1.4 mmol/L; ABG Glucose Whole Blood 141 mg/dL (75-99); ABG HCO3 24 mmol/L (21-25); ABG Hematocrit 41 % (34.0-46.0); ABG Ionized Calcium 4.6 mg/dL (4.5-5.3); ABG Lactic Acid Whole Blood 0.8 mmol/L (0.5-1.6); ABG Oxygen Saturation 98.8 % (94-97); ABG PCO2 44 mmHg (35-45); ABG PH 7.35 (7.35-7.45); ABG PO2 181 mmHg (83-108); ABG Potassium Whole Blood 4.2 mmol/L (3.4-4.5); ABG Sodium Whole Blood 138 mmol/L (135-146); ABG TCO2 22 mmol/L (19-24); Allen Test Performed? Yes
[2024-10-11 13:19] LABS: ABG Base Excess -0.8 mmol/L; ABG Glucose Whole Blood 140 mg/dL (75-99); ABG HCO3 24 mmol/L (21-25); ABG Hematocrit 39 % (34.0-46.0); ABG Ionized Calcium 4.5 mg/dL (4.5-5.3); ABG Oxygen Saturation 98.8 % (94-97); ABG PCO2 41 mmHg (35-45); ABG PH 7.38 (7.35-7.45); ABG PO2 171 mmHg (83-108); ABG Potassium Whole Blood 4.5 mmol/L (3.4-4.5); ABG Sodium Whole Blood 137 mmol/L (135-146); ABG TCO2 22 mmol/L (19-24); Allen Test Performed? Yes
[2024-10-11 14:34] LABS: ABG Base Excess -2.4 mmol/L; ABG Glucose Whole Blood 146 mg/dL (75-99); ABG HCO3 23 mmol/L (21-25); ABG Hematocrit 36 % (34.0-46.0); ABG Ionized Calcium 4.5 mg/dL (4.5-5.3); ABG Lactic Acid Whole Blood 1.2 mmol/L (0.5-1.6); ABG Oxygen Saturation 98.7 % (94-97); ABG PCO2 42 mmHg (35-45); ABG PH 7.35 (7.35-7.45); ABG PO2 168 mmHg (83-108); ABG Potassium Whole Blood 3.8 mmol/L (3.4-4.5); ABG Sodium Whole Blood 138 mmol/L (135-146); ABG TCO2 21 mmol/L (19-24); Allen Test Performed? Yes
[2024-10-11 14:46] LABS: ABG Potassium Whole Blood 4.6 mmol/L (3.4-4.5)
[2024-10-11] MEDS ORDERED: DEXTROSE 5% IN WATER 100 ML with AMIODARONE 150 MG IV PRN (14:59)
[2024-10-11] MEDS ORDERED: AMIODARONE 450 MG in DEXTROSE 5% IN WATER 250 ML IV PRN (14:59)
[2024-10-11] MEDS ORDERED: METOCLOPRAMIDE 5 MG/ML 2 ML VIAL IVP PRN (14:59)
[2024-10-11] MEDS ORDERED: AMIODARONE 360 MG in DEXTROSE 5% IN WATER 200 ML IV PRN (14:59)
[2024-10-11] MEDS ORDERED: Magnesium Replacement Protocol 1 EACH MISC MISCELLANE PRN (14:59)
[2024-10-11] MEDS ORDERED: Phosphorus Replacement Protoco 1 EACH MISC MISCELLANE PRN (14:59)
[2024-10-11] MEDS ORDERED: Potassium Replacement Protocol 1 EACH MISC MISCELLANE PRN (14:59)
[2024-10-11] MEDS ORDERED: BENZOCAINE/MENTHOL LOZENG 1 EACH LOZENGE MUCOUS MEM PRN (14:59)
[2024-10-11] MEDS ORDERED: IPRATROPIUM-ALBUTEROL 3 ML NEB INHALATION PRN (14:59)
[2024-10-11] MEDS: IPRATROPIUM-ALBUTEROL 3 ML NEB INHALATION SCH (15:16)
[2024-10-11 15:26] LABS: Glucose,Whole Blood 151 mg/dL (70-110)
[2024-10-11 15:42] LABS: Ionized Calcium 4.5 mg/dL (4.5-5.3)
[2024-10-11] MEDS: NITROGLYCERIN-D5W PMX 50 MG in DEXTROSE/WATER 1 250ML.BAG IV SCH (15:48)
[2024-10-11 15:49] LABS: ABG Base Excess -3.4 mmol/L; ABG HCO3 24 mmol/L (21-25); ABG Oxygen Saturation 99.9 % (94-97); ABG PCO2 49 mmHg (35-45); ABG PH 7.29 (7.35-7.45); ABG PO2 231 mmHg (83-108); ABG TCO2 25 mmol/L (19-24)
[2024-10-11 15:51] LABS: Basophils # (A) 0.1 k/uL (0-0.2); Basophils % (A) 0 %; Eosinophils # (A) 0.1 k/uL (0-0.7); Eosinophils % (A) 1 %; HCT 36.3 % (39.0-53.0); Lymphocytes # (A) 2.6 k/uL (1.0-4.8); Lymphocytes % (A) 15 %; MCH 32.3 pg (25.0-35.0); MCHC 34.5 g/dL (31.0-37.0); MCV 93.7 fL (80.0-100.0); Mean Platelet Volume 7.9; Monocytes # (A) 0.5 k/uL (0-1.0); Monocytes % (A) 3 %; Neutrophils # (A) 13.9 k/uL (1.3-7.7); Neutrophils % (A) 80 %; Platelet Count 182 k/uL (150-450); RBC 3.88 m/uL (4.30-5.90); RDW 12.7 % (11.5-15.5); WBC 17.3 k/uL (3.8-10.6)
[2024-10-11] MEDS: SODIUM CHLORIDE 0.9% 1,000 ML IV SCH (15:51)
[2024-10-11 15:52] LABS: Allen Test Performed? no
[2024-10-11 15:54] LABS: HGB 12.5 gm/dL (13.0-17.5)
[2024-10-11 15:55] LABS: Partial Thromboplastin Time 25.6 sec (22.0-30.0); Prothrombin Time 11.1 sec (10.0-12.5)
[2024-10-11 15:57] LABS: ALT 20 U/L (4-49); AST 51 U/L (17-59); African American GFR (CKD) >90 (>60 ml/min/1.73 sqM); Albumin 3.3 g/dL (3.5-5.0); Alkaline Phosphatase 68 U/L (38-126); Anion Gap 6 mmol/L; Blood Urea Nitrogen 7 mg/dL (9-20); Calcium 7.9 mg/dL (8.4-10.2); Carbon Dioxide 23 mmol/L (22-30); Chloride 107 mmol/L (98-107); Glucose 144 mg/dL (74-99); Magnesium 2.2 mg/dL (1.6-2.3); Non-African American GFR(CKD) >90 (>60 ml/min/1.73 sqM); Sodium 136 mmol/L (137-145); Total Bilirubin 0.8 mg/dL (0.2-1.3); Total Protein 5.3 g/dL (6.3-8.2)
[2024-10-11] MEDS: INSULIN REGULAR 100 UNIT in SODIUM CHLORIDE 0.9% 100 ML IV SCH (15:57)
--- NOTE | 2024-10-11 15:59 | P.OP ---
Date of Procedure: 10/11/24 Preoperative Diagnosis: Coronary artery disease, acute inferior wall myocardial infarction secondary to the RCA occlusion, unstable angina Postoperative Diagnosis: Same Procedure(s) Performed: Urgent coronary artery bypass grafting x 5 with sequential VERGARA to first diagonal and LAD, sequential left radial artery graft to second and third obtuse marginal branches, saphenous vein graft to posterior descending coronary artery. Occlusion of the left atrial appendage with 35 mm AtriCure clip. Endoscopic harvest of the left radial artery and the right greater saphenous vein from mid calf to groin. Implants: 35 mm AtriCure clip Anesthesia: SHELLIE Surgeon: Fadi Fink Liquor Department Manager #1: Tim Kline Liquor Department Manager #2: Speedy Kay Estimated Blood Loss (ml): 300 IV fluids (ml): 1,800 Urine output (ml): 500 Pathology: other (Anterior mediastinal lymph node) Condition: stable Disposition: ICU Indications for Procedure: 49-year-old male with recently diagnosed diabetes mellitus on no medical therapy due to noncompliance presented with "heartburn" to like a year on [facility]. He ruled in for inferior myocardial infarction. He was transferred to [facility] where he underwent cardiac catheterization the following day. This revealed three-vessel coronary artery disease with complete occlusion of the right coronary artery with collaterals filling the PDA. The proximal to mid LAD had a long very tight irregular stenosis which was felt to be potentially unstable and Dr. Urbina asked for urgent revascularization. Patient was seen by me on the evening following his cardiac catheterization and scheduled for surgery the following day. Operative Findings: Initial TRINA at the beginning of the procedure demonstrated left ventricular ejection fraction of approximately 30% with global hypokinesia. There was only very mild mitral regurgitation. Coronary targets were very reasonable. Conduits were good. Ejection fraction improved to approximately 45% post revascularization on no inotropic support. Description of Procedure: Patient was brought to the operating room and placed supine on the operating table. General anesthesia was induced. Preoperative monitoring lines have been placed in the preop holding area. TRINA probe was placed. TRINA findings as noted above. Anterior torso, left upper extremity and bilateral lower extremities were sterilely prepped and draped. Greater saphenous vein was harvested from mid calf to groin on the right lower extremity. Simultaneously the left radial artery was harvested. These conduit harvest were performed endoscopically. Conduits were prepared on the back table. Simultaneous sternotomy was performed. The left hemisternum was retracted upwards and the left internal mammary artery harvested on a vascularized pedicle, left intact on its origin from the subclavian and divided distally. The left pleural space was drained with a 32 Spanish chest tube. There were considerable adhesions posteriorly in the left pleural space. Standard sternal retractor was placed. Pericardium was opened in the midline. There was extensive prepericardial fat and within it there was a large lymph node which was sent for evaluation by pathology. The heart was exposed with pericardial sutures. Patient was systemically heparinized and ACT's were maintained greater than 250 during grafting. 35 mm AtriCure clip was applied to the base of the left atrial appendage. The VERGARA was now tunneled into the pleural space. It was appropriately prepared for sequential grafting of the first diagonal and left anterior descending coronary arteries. Diagonal was stabilized first and opened longitudinally fairly proximally. Blood flow was controlled with a 2 mm flow-through. Kevx-de-zels anastomosis between the VERGARA and the diet was performed with running 8-0 Prolene suture. On completion of the anastomosis, flow-through was removed effectively probing the proximal and distal portion of the anastomosis. Suture was tied with good resultant hemostasis and the inflow was opened. Graft was noted to fill well. It was good length. The GUSTAVO was tacked surrounding epicardium with 6-0 silk sutures. The distal end was prepared and anastomosed to the mid LAD. This was just after the takeoff of the second diagonal branch. LAD was opened a nd blood flow controlled with a 1.5 mm flow-through. It was a 1.75 mm vessel with some diffuse wall disease present. On completion of the anastomosis, flow- through was removed effectively probing the proximal distal portion of the anastomosis. Suture was tied with good result and hemostasis. Inflow was open. Graft was noted to lay well. The rosario filled well. Hemostasis was excellent. The GUSTAVO pedicle was tacked surrounding epicardium with 6-0 silk suture. Next the inferior wall of the heart was exposed. The PDA was opened fairly proximally. Was a 1.75 mm vessel with some diffuse wall disease present. Blood flow was controlled with a 1.5 mm flow-through. Saphenous vein was anastomosed in an inside fashion with running 7-0 Prolene suture. On completion of the anastomosis, flow-through was removed effective probing the proximal distal portion of the anastomosis. Suture was tied with good result and hemostasis. Good backbleeding was noted into the vein graft to the first valve. Heart was lowered in anatomic position. The vein was brought around the right AV groove to the ascending aorta and cut to appropriate length. Heartstring device was deployed in the mid ascending aorta and proximal anastomosis constructed with running 5-0 Prolene suture. On completion of the proximal anastomosis, heartstring device was removed and suture was tied with good result and hemost asis. The rosario filled well. Graft length was good. Graft was de-aired with needle holes and the inflow open. Next the lateral wall of the heart was exposed. Second and third obtuse marginal coronary arteries were planned for sequential grafting with the radial artery. We began with the distal anastomosis of the end of the radial artery to the third obtuse marginal. This vessel was opened and blood flow controlled with a 1.5 mm flow-through. It was a 1.5 to 1.75 mm vessel. Blood flow was controlled with a 1.5 mm flow-through. Anastomosis was constructed with running 7-0 Prolene suture. On completion of the anastomosis the flow through was removed effectively probing the proximal distal portion of the anastomosis. Suture was tied with good result and hemostasis. Good backbleeding was noted into the radial artery controlled with a bulldog clamp. Next [id number] anastomosis between the radial artery and the second obtuse marginal was performed. Third obtuse marginal was opened longitudinally and blood flow controlled with a 1.5 mm flow-through. Anastomosis was constructed with running 7-0 Prolene suture. On completion the anastomosis the flow through was removed effectively probing the proximal and distal portion of the anastomosis. Suture was tied with good result and hemostasis. Bulldog clamp was removed distally and were placed proximally on the radial artery. Graft was noted to lay well with good length and no kinking. Heart was lowered in anatomic position and the radial artery brought up to the ascending aorta. Was just a little short and it was decided to take it off the internal mammary artery is proximal inflow. Bulldog clamp was placed proximally and distally on the internal mammary artery and it was opened longitudinally as it entered the pericardial space. Anastomosis was constructed inside and fashion with running 8-0 Prolene suture. On completion of the anastomosis it was de-aired by backbleeding from both the radial and the GUSTAVO and the suture was tied with good result and hemostasis. Inflow was then opened. Graft was noted to lay well with good length and there was no evidence of any narrowing or kinking due to to the anastomosis. Heparin was now reversed with protamine. Good hemostasis was obtained throughout. Mediastinum was drained with a 36 Spanish chest tube. The mediastinum was irrigated with antibiotic solution and the sternum closed with 8 sternal wires. Fascia was closed with 0 Ethibond suture. The subcutaneous and subcuticular layers and the leg arm and chest were all closed with layers of Vicryl suture. Dry sterile dressings were applied the patient was transferred to ICU in stable condition.
--- NOTE | 2024-10-11 16:03 | XR ---
EXAMINATION TYPE: XR chest 1V portable DATE OF EXAM: 10/11/2024 CLINICAL HISTORY: Postoperative cardiac surgery. TECHNIQUE: Single AP portable upright view of the chest is obtained. COMPARISON: Chest CT earlier today FINDINGS: There is new endotracheal tube terminating inferior clavicular level approximately 7 to 8 cm above the sotero. There is new orogastric tube projecting below diaphragm. There is new right inte rnal jugular [place]Prosper catheter terminating at level of pulmonary outflow tract.. There is left later al chest tube with left lateral mid to lower lung opacity suggesting atelectasis. Patchy opacity righ t suprahilar region could reflect atelectasis and/or developing acute infiltrate. New Overlying domo rnal wires are present. New left atrial appendage clip. New Mediastinal drainage catheter. No visuali zed pneumothorax. Cardiac silhouette size remains within normal limits. Osseous structures are intact . Cholecystectomy clips are redemonstrated. IMPRESSION: 1. New lines and tubes are satisfactory in position. 2. New left-sided chest tube without pneumothorax. 3. New mild central vascular congestion and suspected scattered atelectatic change. [facility], , 10/11/2024 4:01 PM
[2024-10-11 16:10] LABS: Glucose,Whole Blood 164 mg/dL (70-110)
[2024-10-11] MEDS: DEXMEDETOMIDINE/0.9% NACL(PMX) 400 MCG in EMPTY BAG 1 BAG IV SCH (16:35)
--- NOTE | 2024-10-11 16:44 | P.CRDCN ---
History of Present Illness History of present illness: HISTORY OF PRESENTING ILLNESS This is a pleasant 49-year-old with past medical history significant for hypertension, hyperlipidemia is, diabetes mellitus type 2, tobacco abuse, spinal stenosis, family history of CAD and CAD. He presented to [facility] with heartburn and chest discomfort or last 2-3 weeks and was found to have non- STEMI with troponin up to 4000. He was chest pain-free and eventually underwent diagnostic heart catheterization which showed multivessel CAD with RCA 100% occluded, LAD 80-90% stenosis at the level of a diagonal branch and intermediate disease of the proximal circumflex as well as on 2 branch. Echocardiogram showed EF 40-45% with trace mitral regurgitation. He was transferred to [facility] for further assessment and surgical opinion. Repeat echo showed EF 30- 35% with mid to basal inferior wall hypokinesia. He underwent CABG x 5 with sequential VERGARA to first diagonal and LAD, left radial to OM 2 and 013, SVG to PDA and occlusion of the left atrial appendage with a 35mm AtriCure Clip. He remains on ventilator after surgery with currently 100% FiO2 however is being weaned. REVIEW OF SYSTEMS At the time of my exam: CONSTITUTIONAL: Denies fever or chills. CARDIOVASCULAR: +chest pain, +shortness of breath, no orthopnea, PND or palpitations. RESPIRATORY: Denies cough. GASTROINTESTINAL: Denies abdominal pain, diarrhea, constipation, nausea or vomiting. MUSCULOSKELETAL: Denies myalgias. NEUROLOGIC: Denies numbness, tingling or weakness. ENDOCRINE: Denies fatigue, weight change, polydipsia or polyurina. GENITOURINARY: Denies burning, hematuria or urgency with micturation. HEMATOLOGIC: Denies history of anemia or bleeding. PHYSICAL EXAMINATION Vital signs reviewed. CONSTITUTIONAL: No apparent distress, intubated and sedated. HEENT: Head is normocephalic. Pupils are equal, round. Sclerae anicteric. Mucous membranes of the mouth are moist. No JVD. No carotid bruit. CHEST EXAMINATION: Lungs are clear to auscultation. No chest wall tenderness is noted on palpation or with deep breathing. HEART EXAMINATION: Regular rate and rhythm. S1, S2 heard. No murmurs, gallops or rub. ABDOMEN: Soft, nontender. Positive bowel sounds. EXTREMITIES: 2+ peripheral pulses, no lower extremity edema and no calf tenderness. NEUROLOGIC EXAMINATION: Patient is sedated ASSESSMENT Non-STEMI CAD status post CABG 5 10/11/2024 Hypertension Hyperlipidemia Diabetes mellitus type 2 Ischemic cardiomyopathy EF 30-35% Tobacco abuse Family history of CAD PLAN Continue aspirin and Plavix Amiodarone for A. fib prevention Continue metoprolol as tolerated Wean sedation, ventilator as able Optimize heart failure regimen as blood pressure allows Further recommendations to follow. Past Medical History Past Medical History: Diabetes Mellitus (Not treated), Hyperlipidemia, Hypertension, Osteoarthritis (OA), Thyroid Disorder Additional Past Medical History / Comment(s): CHRONIC BACK PAIN, MIGRAINE HEADACHE ,SOME TROUBLE SWALLOWING History of Any Multi-Drug Resistant Organisms: None Reported Past Surgical History: Back Surgery, Cholecystectomy, Orthopedic Surgery Additional Past Surgical History / Comment(s): RT KNEE ARTHROSCOPY Past Anesthesia/Blood Transfusion Reactions: No Reported Reaction Past Psychological History: No Psychological Hx Reported Smoking Status: Current every day smoker Past Alcohol Use History: Rare Additional Past Alcohol Use History / Comment(s): STARTED SMOKING IN 25 SMOKES 5-10 CIGARETTES A DAY Past Drug Use History: Marijuana Additional Drug Use History / Comment(s): OCCASIONAL USE - Past Family History Mother Family Medical History: No Reported History Father Family Medical History: Coronary Artery Disease (CAD) Brother(s) Family Medical History: Coronary Artery Disease (CAD), Myocardial Infarction (NC) Medications and Allergies Home Medications Medication Instructions Recorded Confirmed Type Meloxicam [Mobic] 15 mg PO DAILY PRN 10/10/24 10/10/24 History Allergies Allergy/AdvReac Type Severity Reaction Status Date / Time Penicillins Allergy Anaphylaxis Verified 10/10/24 19:38 pregabalin [From Lyrica] Allergy Dyspnea Verified 10/10/24 19:38 codeine AdvReac Nausea & Verified 10/10/24 19:38 Vomiting Physical Exam Vitals: Vital Signs Temp Pulse Pulse Resp BP BP BP 10/11/24 16:30 123 H 20 10/11/24 16:15 105 H 14 10/11/24 16:00 107 H 15 117/76 10/11/24 15:45 109 H 14 10/11/24 15:30 106 H 14 10/11/24 15:23 99.7 F H 108 H 15 10/11/24 15:19 10/11/24 15:01 10/11/24 08:57 95 136/84 123/83 10/11/24 08:00 116 H 10/11/24 04:00 98.6 F 101 H 16 148/90 10/11/24 02:00 110 H 16 10/11/24 00:00 98.3 F 112 H 16 155/90 10/10/24 20:43 98.5 F 94 16 127/88 10/10/24 20:00 94 16 10/10/24 18:13 90 16 131/85 10/10/24 17:59 88 14 130/83 10/10/24 17:49 92 16 132/86 Pulse Ox FiO2 10/11/24 16:30 99 10/11/24 16:15 100 10/11/24 16:00 100 100 10/11/24 15:45 100 10/11/24 15:30 100 10/11/24 15:23 99 100 10/11/24 15:19 100 10/11/24 15:01 100 10/11/24 08:57 98 10/11/24 08:00 10/11/24 04:00 98 10/11/24 02:00 10/11/24 00:00 97 10/10/24 20:43 97 10/10/24 20:00 10/10/24 18:13 10/10/24 17:59 10/10/24 17:49 Intake and Output 10/11/24 10/11/24 10/11/24 06:59 14:59 22:59 Intake Total 157.925 403 150.195 Output Total 600 70 Balance 157.925 -197 80.195 Intake: IV 10 403 59 Invasive Line 2 10 Lines 9 Sodium Chloride 0.9% 1, 50 000 ml @ 50 mls/hr IV . Q20H [facility] Rx#:[id number] Intake, IV Titration 147.925 1.195 Amount Heparin Sod,Pork in 0.45% 147.925 NaCl 25,000 unit In 0.45 % NaCl 1 250ml.bag @ 12 UNITS/KG/HR 15.36 mls/hr IV .[id number] [facility] Rx#: [id number] Insulin Regular 100 unit 1.195 In Sodium Chloride 0.9% 100 ml @ Per Protocol IV .Q0M [facility] Rx#:[id number] Oral 90 Output: Chest Tube Drainage 20 Left Pleural 0 Mediastinal 20 Urine 300 50 Estimated Blood Loss 300 Other: Voiding Method Toilet Weight 122.7 kg 122.7 kg ABP, PAP, CO, CI - Last 8 Hours Arterial Blood Pressure 128/31 Arterial Blood Pressure 125/71 Arterial Blood Pressure 119/67 Arterial Blood Pressure 144/69 Arterial Blood Pressure 117/67 Pulmonary Artery Pressure 73/31 Pulmonary Artery Pressure 49/27 Pulmonary Artery Pressure 37/21 Pulmonary Artery Pressure 38/21 Pulmonary Artery Pressure 40/26 Cardiac Output 9.2 Cardiac Output 8.5 Cardiac Index 3.6 Cardiac Index 3.4 Results 10/11/24 15:20 10/11/24 15:20 Cardiac Enzymes 10/10/24 10/11/24 Range/Units 20:54 15:20 AST 44 51 (17-59) U/L Coagulation 10/10/24 10/11/24 10/11/24 Range/Units 20:54 03:07 15:20 PT 11.3 11.1 (10.0-12.5) sec APTT 24.0 33.4 H 25.6 (22.0-30.0) sec Lipids 10/10/24 Range/Units 20:54 Triglycerides 274.00 H (0.00-149.00) mg/dL Cholesterol 163.00 (0.00-200.00) mg/dL HDL Cholesterol 26.60 L (40.00-60.00) mg/dL Cholesterol/HDL Ratio 6.13 Ratio CBC 10/10/24 10/11/24 Range/Units 20:54 15:20 WBC 14.2 H 17.3 H (3.8-10.6) k/uL RBC 5.14 3.88 L (4.30-5.90) m/uL Hgb 16.2 12.5 L D (13.0-17.5) gm/dL Hct 49.0 36.3 L (39.0-53.0) % Plt Count 205 182 (150-450) k/uL Comprehensive Metabolic Panel 10/10/24 10/11/24 Range/Units 20:54 15:20 Sodium 132 L 136 L (137-145) mmol/L Potassium 4.3 4.0 (3.5-5.1) mmol/L Chloride 102 107 (98-107) mmol/L Carbon Dioxide 19 L 23 (22-30) mmol/L BUN 8 L 7 L (9-20) mg/dL Creatinine 0.74 0.76 (0.66-1.25) mg/dL Glucose 326 H 144 H (74-99) mg/dL Calcium 9.1 7.9 L (8.4-10.2) mg/dL AST 44 51 (17-59) U/L ALT 25 20 (4-49) U/L Alkaline Phosphatase 113 68 (38-126) U/L Total Protein 6.5 5.3 L (6.3-8.2) g/dL Albumin 4.0 3.3 L (3.5-5.0) g/dL Current Medications Generic Name Dose Route Start Last Admin Trade Name Freq PRN Reason Stop Dose Admin Acetaminophen 1,000 mg 10/13/24 18:00 Acetaminophen Tab 500 Mg Tab PO Q6HR PRN Fever And/ Or Mild Pain (1-3) Albuterol/Ipratropium 3 ml 10/11/24 14:59 Ipratropium-Albuterol 3 Ml Neb INHALATION RT-Q2H PRN Shortness Of Breath Or Wheezing Albuterol/Ipratropium 3 ml 10/11/24 16:00 10/11/24 15:16 Ipratropium-Albuterol 3 Ml Neb INHALATION 10/11/24 20:40 Not Given RT-Q4H [facility] Albuterol/Ipratropium 3 ml 10/12/24 08:00 Ipratropium-Albuterol 3 Ml Neb INHALATION RT-QID [facility] Aspirin 325 mg 10/12/24 09:00 Aspirin 325 Mg Tab PO DAILY [facility] Atorvastatin Calcium 40 mg 10/12/24 09:00 Atorvastatin 40 Mg Tab PO DAILY [facility] Benzocaine/Menthol 1 each 10/11/24 14:59 Benzocaine/Menthol Lozeng 1 Each Lozenge MUCOUS MEM Q2H PRN Sore Throat Bisacodyl 10 mg 10/12/24 09:00 Bisacodyl 10 Mg Supp RECTAL DAILY PRN Constipation Chlorhexidine Gluconate 15 ml 10/11/24 21:00 Chlorhexidine Gluconate 15 Ml Cup MUCOUS MEM BID [facility] Clopidogrel Bisulfate 75 mg 10/12/24 09:00 Clopidogrel 75 Mg Tab PO DAILY [facility] Dextrose/Water 25 ml 10/11/24 14:59 Dextrose 50% Syringe 50 Ml IVP PER PROTOCOL PRN Hypoglycemia Protocol Dextrose/Water 50 ml 10/11/24 14:59 Dextrose 50% Syringe 50 Ml IVP PER PROTOCOL PRN Hypoglycemia Protocol Heparin Sodium (Porcine) 5,000 unit 10/11/24 16:00 Heparin Sodium,Porcine 5,000 Unit/Ml 1 Ml Vial SQ Q8HR [facility] Amiodarone HCl 150 mg/ 103 mls @ 618 mls/hr 10/11/24 14:59 Dextrose/Water IV .Q10M PRN A.FIB/FLUTTER Protocol Amiodarone HCl 360 mg/ 207.2 mls @ 34.533 mls/hr 10/11/24 14:59 Dextrose/Water IV .Q6H PRN A.FIB/FLUTTER Protocol 1 MG/MIN Amiodarone HCl 450 mg/ 250 mls @ 16.667 mls/hr 10/11/24 14:59 Dextrose/Water IV .Q15H PRN A.FIB/FLUTTER Protocol 0.5 MG/MIN Albumin Human 250 ml/ IV 250 mls @ 250 mls/hr 10/11/24 14:59 Solution IVPB 10/13/24 14:58 Q1HR PRN For Volume Protocol Acetaminophen 1,000 mg/ IV 100 mls @ 400 mls/hr 10/11/24 18:00 Solution IVPB 10/12/24 12:14 Q6HR [facility] Clevidipine 25 mg/ IV Solution 50 mls @ 2 mls/hr 10/11/24 14:59 IV .Q24H [facility] Protocol 1 MG/HR Nitroglycerin/Dextrose 50 mg/ 250 mls @ 1.5 mls/hr 10/11/24 14:59 10/11/24 15:48 IV Solution IV 5 mcg/min .Q24H [facility] 1.5 mls/hr Administration 5 MCG/MIN Propofol 1,000 mg/ IV Solution 100 mls @ 0 mls/hr 10/11/24 14:59 10/11/24 15:48 IV 30 mcg/kg/min .Q0M [facility] 22.086 mls/hr Administration Protocol Titrate Dexmedetomidine HCl 400 mcg/ 100 mls @ 0 mls/hr 10/11/24 14:59 10/11/24 16:35 IV Solution IV 10/12/24 15:01 0.4 mcg/kg/hr .Q0M [facility] 12.27 mls/hr Administration Protocol Titrate Cefazolin Sodium 3 gm/ Sodium 100 mls @ 100 mls/hr 10/11/24 18:00 Chloride IVPB 10/12/24 10:59 Q8H [facility] Protocol Sodium Chloride 1,000 mls @ 50 mls/hr 10/11/24 14:59 10/11/24 15:51 Saline 0.9% IV 50 mls/hr .Q20H [facility] Administration Insulin Human Regular 100 unit 101 mls @ 0 mls/hr 10/11/24 14:59 10/11/24 16:09 / Sodium Chloride IV 8 unit/hr .Q0M [facility] 8.08 mls/hr Titration Protocol Per Protocol Magnesium Hydroxide 2,400 mg 10/12/24 09:00 Magnesium Hydroxide 2,400 Mg/30 Ml Cup PO BID PRN Constipation Metoclopramide HCl 10 mg 10/11/24 14:59 Metoclopramide 5 Mg/Ml 2 Ml Vial IVP Q4H PRN Nausea And Vomiting Metoprolol Tartrate 12.5 mg 10/12/24 09:00 Metoprolol Tartrate 12.5 Mg Tab PO BID [facility] Miscellaneous Information 1 each 10/11/24 14:59 Potassium Replacement Protocol 1 Each Misc MISCELLANE DAILY PRN Per Protocol Protocol Miscellaneous Information 1 each 10/11/24 14:59 Magnesium Replacement Protocol 1 Each Misc MISCELLANE DAILY PRN Per Protocol Protocol Miscellaneous Information 1 each 10/11/24 14:59 Phosphorus Replacement Protoco 1 Each Misc MISCELLANE DAILY PRN Per Protocol Protocol Mupirocin 1 applic 10/11/24 21:00 Mupirocin 2% Oint 22 Gm Tube NASAL 10/14/24 20:59 BID [facility] Ondansetron HCl 4 mg 10/11/24 14:59 Ondansetron 4 Mg/2 Ml Vial IVP Q6HR PRN Nausea And Vomiting Oxycodone HCl 5 mg 10/12/24 02:38 Oxycodone Hcl 5 Mg Tab PO Q6HR PRN Moderate Pain (Scale 4 to 6) Oxycodone HCl 10 mg 10/11/24 14:59 10/11/24 16:21 Oxycodone Hcl 5 Mg Tab PO 10 mg Q4HR PRN Administration Severe Pain (Scale 7 to 10) Pantoprazole Sodium 40 mg 10/12/24 09:00 Pantoprazole 40 Mg/10 Ml Vial IVP DAILY [facility] Senna/Docusate Sodium 2 each 10/12/24 21:00 Sennosides-Docusate Sodium 1 Each Tab PO HS [facility] Sodium Chloride 10 ml 10/11/24 21:00 Sodium Chloride 0.9% Flush 10 Ml Syringe IV BID [facility] Intake and Output 10/11/24 10/11/24 10/11/24 06:59 14:59 22:59 Intake Total 157.925 403 150.195 Output Total 600 70 Balance 157.925 -197 80.195 Intake: IV 10 403 59 Invasive Line 2 10 Lines 9 Sodium Chloride 0.9% 1, 50 000 ml @ 50 mls/hr IV . Q20H [facility] Rx#:[id number] Intake, IV Titration 147.925 1.195 Amount Heparin Sod,Pork in 0.45% 147.925 NaCl 25,000 unit In 0.45 % NaCl 1 250ml.bag @ 12 UNITS/KG/HR 15.36 mls/hr IV .[id number] [facility] Rx#: [id number] Insulin Regular 100 unit 1.195 In Sodium Chloride 0.9% 100 ml @ Per Protocol IV .Q0M [facility] Rx#:[id number] Oral 90 Output: Chest Tube Drainage 20 Left Pleural 0 Mediastinal 20 Urine 300 50 Estimated Blood Loss 300 Other: Voiding Method Toilet Weight 122.7 kg 122.7 kg Patient Weight 10/12/24 06:59 Weight 122.7 kg 10/11/24 15:20 10/11/24 15:20
[2024-10-11] MEDS: HEPARIN SODIUM,PORCINE 5,000 UNIT/ML 1 ML VIAL SQ SCH (17:03)
[2024-10-11 17:10] LABS: Glucose,Whole Blood 173 mg/dL (70-110)
--- NOTE | 2024-10-11 17:44 | P.ANPRN ---
Procedure Note - Anesthesia - Invasive Line Right Time Out Performed: Yes Date of Procedure: 10/11/24 Location of Patient: PreOp Preparation: Sterile Prep, Sterile Dressing Central Line Location: Internal Jugular Ultrasound Used: Yes Purpose - Visualization and Identification of Vasculature: Yes Image Stored and Saved: Yes Narrative: Invasive line placement per sterile protocol utilized. Informed consent obtained.Right Internal jugular vein cannulated under aseptic precautions. 3cc 1% lidocaine infiltrated initially after cleaning with iodine based prep and draping. Ultrasound used to locate the vein and Seldinger technique used. 9Fr introduced sheath inserted and after the finding the needle with navy fighter pilot needle/catheter. The introducer sheath was sutured in place. After the insertion of PA Catheter the insertion site was dressed with biopatch and tegaderm. Patient tolerated the procedure well. Right [place] Prosper Time Out Performed: Yes Location of Patient: PreOp Preparation: Sterile Prep, Sterile Dressing [place] Line Location: Internal Jugular Narrative: Invasive line placement per sterile protocol utilized. 8Ff PA catheter threaded through the Right IJ introducer sheath under asepsis with continuous waveform monitoring. Catheter at 48 cms gunnar. - TRINA Intraop Pre Bypass TRINA Intraop - Anesthesia Indication: coronary artery disease, coronary artery bypass graft surgery Date of Procedure: 10/11/24 Pre-operative Diagnosis: coronary artery disease Post-operative Diagnosis: status post CABG Surgeon: Fadi Fink Ejection Fraction: Other (30%) Regional Wall Motion Abnormalities: Other (hypokinetic infero lateral inferior and inferoseptal parks) Left Ventricle Hypertrophy: No R. Ventricle Function: Normal Anatomy: Trileaflet Aortic Stenosis: None Aortic Regurgitation: None Mitral Stenosis: None Mitral Regurgitation: Mild Tricuspid Stenosis: None Tricuspid Regurgitation: Trace Pulmonic Stenosis: None R. Atrial Dilation: No R. Atrial PFO: No L. Atrial Dilation: No Aortic Dissection: No - TRINA Intraop Post Bypass TRINA Intraop Post Bypass Procedure Performed: coronary artery bypass graft Left Ventricle: ejection fraction improved to 40% no, regional wall motion abnormalities in the inferior inferolateral, inferomedial parks have improved. Ejection Fraction: Other (40%) R. Ventricle Function: Normal Aortic Valve: Unchanged Mitral Valve: Unchanged Tricuspid: Unchanged Pulmonic: Unchanged
[2024-10-11] MEDS: ceFAZolin 3 GM in SODIUM CHLORIDE 0.9% 100 ML IVPB SCH (18:09)
[2024-10-11 18:14] LABS: Glucose,Whole Blood 173 mg/dL (70-110)
[2024-10-11] MEDS: ACETAMINOPHEN IV (For NPO) 1,000 MG in EMPTY BAG 1 BAG IVPB SCH (18:20)
[2024-10-11] MEDS: ONDANSETRON 4 MG/2 ML VIAL IVP PRN (18:29)
[2024-10-11 18:35] LABS: Basophils % (A) 0 %; Eosinophils # (A) 0.2 k/uL (0-0.7); Eosinophils % (A) 1 %; HCT 38.5 % (39.0-53.0); HGB 13.2 gm/dL (13.0-17.5); Lymphocytes # (A) 2.1 k/uL (1.0-4.8); Lymphocytes % (A) 12 %; MCHC 34.1 g/dL (31.0-37.0); MCV 93.8 fL (80.0-100.0); Monocytes # (A) 0.6 k/uL (0-1.0); Monocytes % (A) 3 %; Neutrophils # (A) 14.6 k/uL (1.3-7.7); Neutrophils % (A) 83 %; Platelet Count 225 k/uL (150-450); RBC 4.11 m/uL (4.30-5.90); RDW 12.8 % (11.5-15.5); WBC 17.7 k/uL (3.8-10.6)
[2024-10-11] MEDS: CLEVIDIPINE BUTYRATE 25 MG in EMPTY BAG 1 BAG IV SCH (18:44)
[2024-10-11] MEDS: ALBUMIN HUMAN 5% 250 ML in EMPTY BAG 1 BAG IVPB PRN (19:00)
[2024-10-11 19:05] LABS: Glucose,Whole Blood 165 mg/dL (70-110)
[2024-10-11 20:08] LABS: Glucose,Whole Blood 138 mg/dL (70-110)
--- NOTE | 2024-10-11 20:22 | P.CNPUL ---
History of Present Illness Consult date: 10/11/24 Chief complaint: coronary revascularization/bypass surgery History of present illness: 49-year-old male patient was being seen in the intensive care is following coronary artery bypass surgery. The patient underwent an urgent four-vessel bypass surgery including VERGARA to LAD and first diagonal and sequential left radial artery graft to second and third obtuse marginal branch and saphenous vein graft to PDA. The patient has multivessel coronary disease and the patient is status post inferior wall myocardial infarction secondary to RCA occlusion. He initially presented to us with heartburn and he ruled in for inferior wall myocardial infarction. Cardiac catheterization was done and subsequent and the patient was taken to the operating room for urgent revascularization. At the time of my evaluation, the patient was intubated on the mechanical ventilator. The patient was sedated with propofol running at 30 mcg/kg/min. The patient was on the mechanical ventilator on assist-control mode with rate of 14, tidal volume of 600, FiO2 of 100% with a PEEP of 10. Initial blood gas showed a pH of 7.29 with a pCO2 of 48 and pO2 of 231. Chest x-ray showed adequate expansion of both lungs. Left lower remedy such issues were all in apolinar ce. The patient had a Bogue-Prosper catheter placed. PA pressures were 35/26. Cardiac output was at 9.2 with an index of 3.6. Adequate urine output. No pressors. The cardiac rhythm is sinus. The patient was on nitroglycerin at 5 mcg/min and the patient was on insulin drip at 8 units an hour. White cell count at 17.7 with a hemoglobin 15.2 and a platelet count of 225. Output from the chest tubes are minimal less than 200 cc from each pleural and mediastinal chest tube. Remains hemodynamically stable. Noted the preoperative echocardiogram showed impairment in the LV function with an estimated ejection fraction of 30 to 35%. The patient is known to have hypertension, hyperlipidemia, type 2 diabetes mellitus and is a chronic smoker. He also has a positive family history for coronary artery disease. Review of Systems ROS unobtainable: due to endotracheal tube Past Medical History Past Medical History: Coronary Artery Disease (CAD), Diabetes Mellitus (Not treated), Hyperlipidemia, Hypertension, Myocardial Infarction (LA), Osteoarthritis (OA), Thyroid Disorder Additional Past Medical History / Comment(s): CHRONIC BACK PAIN, MIGRAINE HEADACHE ,SOME TROUBLE SWALLOWING History of Any Multi-Drug Resistant Organisms: None Reported Past Surgical History: Back Surgery, Cholecystectomy, Orthopedic Surgery Additional Past Surgical History / Comment(s): RT KNEE ARTHROSCOPY Past Anesthesia/Blood Transfusion Reactions: No Reported Reaction Past Psychological History: No Psychological Hx Reported Smoking Status: Current every day smoker Past Alcohol Use History: Rare Additional Past Alcohol Use History / Comment(s): STARTED SMOKING IN 25 SMOKES 5-10 CIGARETTES A DAY Past Drug Use History: Marijuana Additional Drug Use History / Comment(s): OCCASIONAL USE - Past Family History Mother Family Medical History: No Reported History Father Family Medical History: Coronary Artery Disease (CAD) Brother(s) Family Medical History: Coronary Artery Disease (CAD), Myocardial Infarction (LA) Medications and Allergies Home Medications Medication Instructions Recorded Confirmed Type Meloxicam [Mobic] 15 mg PO DAILY PRN 10/10/24 10/10/24 History Allergies Allergy/AdvReac Type Severity Reaction Status Date / Time Penicillins Allergy Anaphylaxis Verified 10/10/24 19:38 pregabalin [From Lyrica] Allergy Dyspnea Verified 10/10/24 19:38 codeine AdvReac Nausea & Verified 10/10/24 19:38 Vomiting Physical Exam Vitals: Vital Signs Temp Pulse Pulse Resp BP BP BP 10/11/24 17:16 10/11/24 17:00 114 H 18 92/63 10/11/24 16:55 10/11/24 16:45 117 H 19 117/76 10/11/24 16:38 10/11/24 16:30 123 H 20 10/11/24 16:15 105 H 14 10/11/24 16:00 107 H 15 117/76 10/11/24 15:45 109 H 14 10/11/24 15:30 106 H 14 10/11/24 15:23 99.7 F H 108 H 15 10/11/24 15:19 10/11/24 15:01 10/11/24 08:57 95 136/84 123/83 10/11/24 08:00 116 H 10/11/24 04:00 98.6 F 101 H 16 148/90 10/11/24 02:00 110 H 16 10/11/24 00:00 98.3 F 112 H 16 155/90 10/10/24 20:43 98.5 F 94 16 127/88 10/10/24 20:00 94 16 10/10/24 18:13 90 16 131/85 10/10/24 17:59 88 14 130/83 10/10/24 17:49 92 16 132/86 Pulse Ox FiO2 10/11/24 17:16 50 10/11/24 17:00 96 10/11/24 16:55 60 10/11/24 16:45 98 10/11/24 16:38 60 10/11/24 16:30 99 10/11/24 16:15 100 10/11/24 16:00 100 100 10/11/24 15:45 100 10/11/24 15:30 100 10/11/24 15:23 99 100 10/11/24 15:19 100 10/11/24 15:01 100 10/11/24 08:57 98 10/11/24 08:00 10/11/24 04:00 98 10/11/24 02:00 10/11/24 00:00 97 10/10/24 20:43 97 10/10/24 20:00 10/10/24 18:13 10/10/24 17:59 10/10/24 17:49 Intake and Output 10/11/24 10/11/24 10/11/24 06:59 14:59 22:59 Intake Total 157.925 403 209.195 Output Total 600 270 Balance 157.925 -197 -60.805 Intake: IV 10 403 118 Invasive Line 2 10 Lines 18 Sodium Chloride 0.9% 1, 100 000 ml @ 50 mls/hr IV . Q20H ERASMO Rx#:[id number] Intake, IV Titration 147.925 1.195 Amount Heparin Sod,Pork in 0.45% 147.925 NaCl 25,000 unit In 0.45 % NaCl 1 250ml.bag @ 12 UNITS/KG/HR 15.36 mls/hr IV .[id number] ERASMO Rx#: [id number] Insulin Regular 100 unit 1.195 In Sodium Chloride 0.9% 100 ml @ Per Protocol IV .Q0M ERASMO Rx#:[id number] Oral 90 Output: Chest Tube Drainage 145 Left Pleural 80 Mediastinal 65 Urine 300 125 Estimated Blood Loss 300 Other: Voiding Method Toilet Indwelling Catheter Weight 122.7 kg 122.7 kg ABP, PAP, CO, CI - Last 8 Hours Arterial Blood Pressure 101/62 Arterial Blood Pressure 118/70 Arterial Blood Pressure 128/31 Arterial Blood Pressure 125/71 Arterial Blood Pressure 119/67 Arterial Blood Pressure 144/69 Arterial Blood Pressure 117/67 Pulmonary Artery Pressure 36/24 Pulmonary Artery Pressure 41/23 Pulmonary Artery Pressure 73/31 Pulmonary Artery Pressure 49/27 Pulmonary Artery Pressure 37/21 Pulmonary Artery Pressure 38/21 Pulmonary Artery Pressure 40/26 Cardiac Output 6.9 Cardiac Output 9.2 Cardiac Output 9.2 Cardiac Output 8.5 Cardiac Index 2.7 Cardiac Index 3.6 Cardiac Index 3.6 Cardiac Index 3.4 The patient appeared well nourished and normally developed. Vital signs as documented. The patient is sedated, intubated on mechanical ventilator. Orogastric and orotracheal tube are both in place. Head exam is unremarkable. No scleral icterus or corneal arcus noted. Neck is without jugular venous distension, thyromegaly, or carotid bruits. Carotid upstrokes are brisk bilaterally. The patient has a right IJ Bogue-Prosper catheter in place. Lungs are clear to auscultation and percussion. Patient has a mediastinal and left lower chest tube. No significant air leak. Cardiac exam reveals the PMI to be normally sized and situated. Rhythm is regular. First and second heart sounds normal. No murmurs, rubs or gallops. Abdominal exam reveals normal bowel sounds, no masses, no organomegaly and no aortic enlargement. Extremities are nonedematous and both femoral and pedal pulses are normal. Examination of the skin revealed no evidence of significant rashes, suspicious appearing nevi or other concerning lesions. Neurologically, the patient is sadated , calm and comfortable Results - Laboratory Findings CBC and BMP: 10/11/24 18:25 10/11/24 15:20 ABG ABG pH 7.29 (7.35-7.45) L 10/11/24 15:48 ABG pCO2 49 mmHg (35-45) H 10/11/24 15:48 ABG pO2 231 mmHg (83-108) H 10/11/24 15:48 ABG O2 Saturation 99.9 % (94-97) H 10/11/24 15:48 PT/INR, D-dimer PT 11.1 sec (10.0-12.5) 10/11/24 15:20 INR 1.0 (<1.2) 10/11/24 15:20 Abnormal lab findings: Abnormal Labs 10/10/24 10/10/24 10/10/24 20:54 20:54 20:54 WBC 14.2 H RBC Hgb Hct Neutrophils # 10.8 H APTT ABG pH ABG pCO2 ABG pO2 ABG HCO3 ABG Total CO2 ABG O2 Saturation ABG Potassium ABG Glucose Hemoglobin Sodium 132 L Carbon Dioxide 19 L BUN 8 L Glucose 326 H POC Glucose (mg/dL) Hemoglobin A1c 9.4 H Calcium Total Protein Albumin Triglycerides 274.00 H VLDL Cholesterol, Calc 54.80 H HDL Cholesterol 26.60 L Arterial Blood Potassium Arterial Blood Glucose Crossmatch 10/11/24 10/11/24 10/11/24 03:07 05:53 06:44 WBC RBC Hgb Hct Neutrophils # APTT 33.4 H ABG pH ABG pCO2 ABG pO2 ABG HCO3 ABG Total CO2 ABG O2 Saturation ABG Potassium ABG Glucose Hemoglobin Sodium Carbon Dioxide BUN Glucose POC Glucose (mg/dL) 315 H Hemoglobin A1c Calcium Total Protein Albumin Triglycerides VLDL Cholesterol, Calc HDL Cholesterol Arterial Blood Potassium Arterial Blood Glucose Crossmatch See Detail 10/11/24 10/11/24 10/11/24 08:54 09:45 10:02 WBC RBC Hgb Hct Neutrophils # APTT ABG pH ABG pCO2 ABG pO2 ABG HCO3 ABG Total CO2 ABG O2 Saturation ABG Potassium ABG Glucose Hemoglobin Sodium Carbon Dioxide BUN Glucose POC Glucose (mg/dL) 234 H 205 H 182 H Hemoglobin A1c Calcium Total Protein Albumin Triglycerides VLDL Cholesterol, Calc HDL Cholesterol Arterial Blood Potassium Arterial Blood Glucose Crossmatch 10/11/24 10/11/24 10/11/24 10:54 11:59 12:04 WBC RBC Hgb Hct Neutrophils # APTT ABG pH 7.34 L 7.31 L 7.32 L ABG pCO2 46 H 51 H 48 H ABG pO2 133 H 141 H 139 H ABG HCO3 26 H ABG Total CO2 ABG O2 Saturation 98.4 H 98.2 H 98.3 H ABG Potassium 4.6 H 4.6 H ABG Glucose 160 H 142 H 140 H Hemoglobin Sodium Carbon Dioxide BUN Glucose POC Glucose (mg/dL) Hemoglobin A1c Calcium Total Protein Albumin Triglycerides VLDL Cholesterol, Calc HDL Cholesterol Arterial Blood Potassium 4.6 H 4.6 H Arterial Blood Glucose 160 H 142 H 140 H Crossmatch 10/11/24 10/11/24 10/11/24 12:26 13:20 14:36 WBC RBC Hgb Hct Neutrophils # APTT ABG pH ABG pCO2 ABG pO2 181 H 171 H 168 H ABG HCO3 ABG Total CO2 ABG O2 Saturation 98.8 H 98.8 H 98.7 H ABG Potassium ABG Glucose 141 H 140 H 146 H Hemoglobin 12.8 L 11.8 L Sodium Carbon Dioxide BUN Glucose POC Glucose (mg/dL) Hemoglobin A1c Calcium Total Protein Albumin Triglycerides VLDL Cholesterol, Calc HDL Cholesterol Arterial Blood Potassium Arterial Blood Glucose 141 H 140 H 146 H Crossmatch 10/11/24 10/11/24 10/11/24 15:20 15:20 15:24 WBC 17.3 H RBC 3.88 L Hgb 12.5 L D Hct 36.3 L Neutrophils # 13.9 H APTT ABG pH ABG pCO2 ABG pO2 ABG HCO3 ABG Total CO2 ABG O2 Saturation ABG Potassium ABG Glucose Hemoglobin Sodium 136 L Carbon Dioxide BUN 7 L Glucose 144 H POC Glucose (mg/dL) 151 H Hemoglobin A1c Calcium 7.9 L Total Protein 5.3 L Albumin 3.3 L Triglycerides VLDL Cholesterol, Calc HDL Cholesterol Arterial Blood Potassium Arterial Blood Glucose Crossmatch 10/11/24 10/11/24 10/11/24 15:48 16:08 17:08 WBC RBC Hgb Hct Neutrophils # APTT ABG pH 7.29 L ABG pCO2 49 H ABG pO2 231 H ABG HCO3 ABG Total CO2 25 H ABG O2 Saturation 99.9 H ABG Potassium ABG Glucose Hemoglobin Sodium Carbon Dioxide BUN Glucose POC Glucose (mg/dL) 164 H 173 H Hemoglobin A1c Calcium Total Protein Albumin Triglycerides VLDL Cholesterol, Calc HDL Cholesterol Arterial Blood Potassium Arterial Blood Glucose Crossmatch - Diagnostic Findings Chest x-ray: image reviewed Assessment and Plan Plan: Multivessel coronary artery disease, symptoms of the patient is status post urgent coronary artery bypass grafting x 5 with sequential VERGARA to first diagonal and LAD, sequential left radial artery graft to second and third obtuse marginal branches, saphenous vein graft to posterior descending coronary artery. The patient is currently postop day #0. Remains intubated on ventilator. Hemodynamically stable and the patient has adequate cardiac output and index. Maintained on nitroglycerin drip, low-dose. Postthoracotomy related to bypass surgery. Mediastinal and pleural chest tubes are in place. Output is minimal. No evidence of any air leak. Blood gas was noted and there is a component of respiratory acidosis and the necessary ventilator changes will be done. Oxygenation is stable. Status post inferior wall myocardial infarction, non-ST segment elevation myocardial infarction Ischemic cardiomyopathy with an ejection fraction of 30 to 35%, preop Diabetes mellitus type 2, currently on insulin drip for blood sugar control Hypertension Hyperlipidemia History of smoking Plan Keep the patient sedated for now Continue vent support and increased respiratory rate up to 20 and wean down FiO2 to maintain saturation above 90% Monitor output from the chest tubes Chest x-ray was reviewed Hemodynamically stable with adequate cardiac output and index Continue nitroglycerin drip Insulin drip for blood sugar control Adequate urine output Will continue to follow. Anticipate extubation within next few hours. Critical care evaluation.
[2024-10-11] MEDS: MUPIROCIN 2% OINT 22 GM TUBE NASAL SCH (20:36)
[2024-10-11] MEDS ORDERED: CHLORHEXIDINE GLUCONATE 15 ML CUP MUCOUS MEM SCH (21:00)
[2024-10-11] MEDS ORDERED: INSULIN DETEMIR (LEVEMIR) 100 UNIT/ML SYR SQ SCH (21:00)
[2024-10-11 21:04] LABS: Glucose,Whole Blood 132 mg/dL (70-110)
[2024-10-11 21:41] LABS: Basophils % (A) 0 %; Eosinophils # (A) 0.1 k/uL (0-0.7); Eosinophils % (A) 0 %; HCT 37.7 % (39.0-53.0); HGB 12.7 gm/dL (13.0-17.5); Lymphocytes # (A) 1.3 k/uL (1.0-4.8); Lymphocytes % (A) 8 %; MCH 31.9 pg (25.0-35.0); MCHC 33.7 g/dL (31.0-37.0); MCV 94.7 fL (80.0-100.0); Mean Platelet Volume 7.5; Monocytes # (A) 0.7 k/uL (0-1.0); Monocytes % (A) 4 %; Neutrophils # (A) 13.6 k/uL (1.3-7.7); Neutrophils % (A) 87 %; Platelet Count 182 k/uL (150-450); RBC 3.99 m/uL (4.30-5.90); RDW 12.5 % (11.5-15.5); WBC 15.6 k/uL (3.8-10.6)
[2024-10-11 21:56] LABS: ALT 22 U/L (4-49); AST 66 U/L (17-59); African American GFR (CKD) >90 (>60 ml/min/1.73 sqM); Albumin 3.7 g/dL (3.5-5.0); Alkaline Phosphatase 70 U/L (38-126); Anion Gap 7 mmol/L; Blood Urea Nitrogen 7 mg/dL (9-20); Calcium 8.5 mg/dL (8.4-10.2); Carbon Dioxide 23 mmol/L (22-30); Chloride 105 mmol/L (98-107); Glucose 130 mg/dL (74-99); Magnesium 2.1 mg/dL (1.6-2.3); Non-African American GFR(CKD) >90 (>60 ml/min/1.73 sqM); Potassium 4.3 mmol/L (3.5-5.1); Sodium 135 mmol/L (137-145); Total Bilirubin 0.8 mg/dL (0.2-1.3); Total Protein 5.8 g/dL (6.3-8.2)
[2024-10-11 22:02] LABS: Glucose,Whole Blood 124 mg/dL (70-110)
[2024-10-11 23:04] LABS: Glucose,Whole Blood 124 mg/dL (70-110)
[2024-10-12 00:05] LABS: Glucose,Whole Blood 120 mg/dL (70-110)
[2024-10-12 01:05] LABS: Glucose,Whole Blood 114 mg/dL (70-110)
[2024-10-12 02:13] LABS: Glucose,Whole Blood 139 mg/dL (70-110)
[2024-10-12 03:10] LABS: Glucose,Whole Blood 127 mg/dL (70-110)
[2024-10-12 04:16] LABS: Glucose,Whole Blood 121 mg/dL (70-110)
[2024-10-12] MEDS ORDERED: CLEVIDIPINE BUTYRATE 25 MG in EMPTY BAG 1 BAG IV ONE (05:00)
[2024-10-12] MEDS ORDERED: NITROGLYCERIN-D5W PMX 25 MG/250 ML BTL IV ONE (05:00)
[2024-10-12] MEDS ORDERED: PHENYLEPHRINE 10 MG/ML VIAL IV ONE (05:00)
[2024-10-12] MEDS ORDERED: PROTAMINE SULFATE 250 MG in EMPTY BAG 1 BAG IV ONE (05:00)
[2024-10-12] MEDS ORDERED: ASPIRIN 81 MG PO ONE (05:00)
[2024-10-12] MEDS ORDERED: MANNITOL 25% 12.5 GM/50 ML VIAL IV ONE ×2 (05:00)
[2024-10-12] MEDS ORDERED: TRANEXAMIC ACID 2,000 MG in SODIUM CHLORIDE 0.9% 80 ML IV ONE (05:00)
[2024-10-12] MEDS ORDERED: CALCIUM CHLORIDE 100 MG/ML 10 ML SYRINGE IVP ONE (05:00)
[2024-10-12] MEDS ORDERED: DILTIAZEM 125 MG in SODIUM CHLORIDE 0.9% 100 ML IV ONE (05:00)
[2024-10-12] MEDS ORDERED: METOPROLOL TARTRATE 12.5 MG TAB PO ONE (05:00)
[2024-10-12] MEDS ORDERED: PHENYLEPHRINE 40 MG in SODIUM CHLORIDE 0.9% 250 ML IV ONE (05:00)
[2024-10-12] MEDS ORDERED: CHLORHEXIDINE GLUCONATE 15 ML CUP MUCOUS MEM ONE (05:00)
[2024-10-12] MEDS ORDERED: NOREPINEPHRINE 4 MG in SODIUM CHLORIDE 0.9% 250 ML IV ONE (05:00)
[2024-10-12] MEDS ORDERED: ALBUMIN HUMAN 25% 50 ML in EMPTY BAG 1 BAG IVPB ONE (05:00)
[2024-10-12] MEDS ORDERED: ATORVASTATIN 10 MG TAB PO ONE (05:00)
[2024-10-12] MEDS ORDERED: HEPARIN SODIUM 1,000 UN/ML (10ML VL) IV ONE (05:00)
[2024-10-12] MEDS ORDERED: SODIUM BICARB 8.4% 50 ML SYR (1 MEQ/ML) IV ONE (05:00)
[2024-10-12] MEDS ORDERED: MAGNESIUM SULFATE 16.24 MEQ in EMPTY SYRINGE 1 SYR IV ONE (05:00)
[2024-10-12] MEDS ORDERED: PROTAMINE SULFATE 10 MG/ML 25 ML VIAL IV ONE (05:00)
[2024-10-12] MEDS ORDERED: NITROGLYCERIN-D5W PMX 50 MG in DEXTROSE/WATER 1 250ML.BAG IV ONE (05:00)
[2024-10-12] MEDS ORDERED: INSULIN REGULAR 100 UNIT in SODIUM CHLORIDE 0.9% 100 ML IV ONE (05:00)
[2024-10-12] MEDS ORDERED: ALBUMIN HUMAN 5% 500 ML in EMPTY BAG 1 BAG IVPB ONE ×6 (05:00)
[2024-10-12] MEDS ORDERED: CARDIOPLEGIC SOLN (K+ 16 MEQ/L 1,000 ML with SOD BICARB SYR 8.4% (1 MEQ/ML) 20 ML, LIDO... PERFUSION NR (05:00)
[2024-10-12 05:28] LABS: Glucose,Whole Blood 119 mg/dL (70-110)
[2024-10-12] MEDS: METOPROLOL TARTRATE 12.5 MG TAB PO SCH (06:28)
[2024-10-12 06:30] LABS: Basophils % (A) 0 %; Eosinophils # (A) 0.1 k/uL (0-0.7); Eosinophils % (A) 1 %; HCT 39.2 % (39.0-53.0); HGB 12.7 gm/dL (13.0-17.5); Lymphocytes # (A) 2.8 k/uL (1.0-4.8); Lymphocytes % (A) 18 %; MCH 30.8 pg (25.0-35.0); MCHC 32.4 g/dL (31.0-37.0); MCV 95.2 fL (80.0-100.0); Mean Platelet Volume 7.6; Monocytes % (A) 6 %; Neutrophils # (A) 11.5 k/uL (1.3-7.7); Neutrophils % (A) 74 %; Platelet Count 205 k/uL (150-450); RBC 4.12 m/uL (4.30-5.90); RDW 12.7 % (11.5-15.5); WBC 15.7 k/uL (3.8-10.6)
[2024-10-12 06:42] LABS: Glucose,Whole Blood 123 mg/dL (70-110)
[2024-10-12 06:44] LABS: Ionized Calcium 4.8 mg/dL (4.5-5.3)
[2024-10-12 06:55] LABS: ALT 18 U/L (4-49); AST 57 U/L (17-59); African American GFR (CKD) >90 (>60 ml/min/1.73 sqM); Albumin 3.6 g/dL (3.5-5.0); Alkaline Phosphatase 68 U/L (38-126); Anion Gap 7 mmol/L; Blood Urea Nitrogen 6 mg/dL (9-20); Calcium 8.5 mg/dL (8.4-10.2); Carbon Dioxide 22 mmol/L (22-30); Chloride 105 mmol/L (98-107); Glucose 109 mg/dL (74-99); Non-African American GFR(CKD) >90 (>60 ml/min/1.73 sqM); Potassium 4.2 mmol/L (3.5-5.1); Sodium 134 mmol/L (137-145); Total Bilirubin 1.3 mg/dL (0.2-1.3); Total Protein 5.7 g/dL (6.3-8.2)
--- NOTE | 2024-10-12 07:39 | P.PN ---
Subjective Progress Note Date: 10/12/24 Principal diagnosis: Coronary artery disease, acute inferior wall myocardial infarction secondary to the RCA occlusion, unstable angina, ischemic cardiomyopathy. History of hyperte nsion, hyperlipidemia, untreated diabetes mellitus type 2 with uncontrolled hyperglycemia due to patient noncompliance, obesity, chronic ongoing tobacco dependence, daily marijuana use, osteoarthritis, and family history of premature coronary artery disease POD #1 urgent coronary artery bypass grafting x 5 with sequential VERGARA to first diagonal and LAD, sequential left radial artery graft to second and third obtuse marginal branches, saphenous vein graft to posterior descending coronary artery. Occlusion of the left atrial appendage with 35 mm AtriCure clip. Endoscopic harvest of the left radial artery and the right greater saphenous vein from mid calf to groin The patient was seen and examined this morning sitting up in recliner in the intensive care unit in no acute distress. He was extubated last night at 18:30. Currently sinus tach with heart rate in the 120s, hemodynamically stable on no inotropes or pressors, remains on 5 L nasal cannula with oxygen saturation in the mid 90s. He is able to achieve 1000 to 1250 mL on his incentive spirometry. States his expected postsurgical pain is mostly controlled with current medication regimen, the patient does have chronic back pain. States he is hungry and asking for food. Right internal jugular [place]/Cordis, mediastinal/lef t pleural chest tubes remain. No other new concerns. Objective - Vital Signs Vital signs: Vital Signs Temp 100.0 F H 10/12/24 04:00 Pulse 124 H 10/12/24 07:00 Resp 26 H 10/12/24 07:00 BP 119/80 10/12/24 07:00 Pulse Ox 93 L 10/12/24 06:00 FiO2 50 10/11/24 17:16 Intake & Output 10/11/24 10/12/24 10/12/24 18:59 06:59 18:59 Intake Total 804.548 710.457 50 Output Total 935 946 84 Balance -130.452 -235.543 -34 Weight 122.7 kg 126.9 kg Intake: IV 640 634 50 CO/CI 60 60 Lines 27 54 Sodium Chloride 0.9% 1, 150 520 50 000 ml @ 20 mls/hr IV . Q24H [facility] Rx#:[id number] Intake, IV Titration 74.548 76.457 Amount Dexmedetomidine/0.9% NaCl 20.604 (Pmx) 400 mcg In Empty Bag 1 bag @ Titrate IV . Q0M [facility] Rx#:[id number] Insulin Regular 100 unit 18.668 76.457 In Sodium Chloride 0.9% 100 ml @ Per Protocol IV .Q0M [facility] Rx#:[id number] propofoL 1,000 mg In 35.276 Empty Bag 1 bag @ Titrate IV .Q0M [facility] Rx#: [id number] Oral 90 Output: Chest Tube Drainage 170 196 34 Left Pleural - 36f 95 36 4 Mediastinal 32f 75 160 30 Drainage 35 Left Wrist 10 Right Calf 25 Urine 465 715 50 Estimated Blood Loss 300 Other: Voiding Method Indwelling Catheter Indwelling Catheter ABP, PAP, CO, CI - Last Documented Arterial Blood Pressure 87/86 Pulmonary Artery Pressure 28/14 Cardiac Output 8.3 Cardiac Index 3.3 - Exam CONSTITUTIONAL: Appears comfortable, cooperative, no acute distress RESPIRATORY: Lungs sounds diminished in the bases bilaterally. Respirations even, nonlabored. Currently on 5 L nasal cannula with oxygen saturation 95%. A ble to achieve 8818-7758 mL on incentive spirometry. Strong cough. CARDIOVASCULAR: S1, S2 present. Tachycardic but regular rate and rhythm, sinus tach on telemetry. Sternum stable. Palpable peripheral pulses bilaterally. No edema present. No calf pain or tenderness noted. Heart hugger, antiembolism stockings, SCDs present. GASTROINTESTINAL: Abdomen soft, nontender, nondistended. Hypoactive bowel sounds present 4 quadrants. Tolerating clear liquids. Positive belching, negative flatus GENITOURINARY: Zhang present draining clear, yellow urine. Output overnight 45-80 mL per hour INTEGUMENTARY: Skin is warm and dry with evidence of good perfusion. Anterior chest incision well approximated and covered with dry intact dressing. Left radial artery harvest site as well as right lower extremity EVH site well approximated without redness, MADDY drains present with minimal drainage NEUROLOGIC: Cranial nerves II through XII intact MUSKULOSKELETAL: Able to move all extremities, strength equal bilaterally, gait normal PSYCHIATRIC: Alert and oriented to person place and time, appropriate affect, intact judgment and insight INVASIVE LINES AND TUBES: Mediastinal/left pleural chest tubes present and connected to wall suction, no air leaks present. Mediastinal tube with 70 mL serosanguineous drainage overnight, 300 mL since surgery. Left pleural chest tube with 2 mL serosanguineous drainage overnight, 120 mL since surgery. Right internal jugular [place]/Cordis present. Last CO/CI 8.3/3.3, PA 35/20, CVP 14. - Allied health notes Allied health notes reviewed: nursing - Labs CBC & Chem 7: 10/12/24 05:35 10/12/24 05:25 Labs: Abnormal Lab Results - Last 24 Hours (Table) 10/11/24 10/11/24 10/11/24 Range/Units 06:44 08:54 09:45 WBC (3.8-10.6) k/uL RBC (4.30-5.90) m/uL Hgb (13.0-17.5) gm/dL Hct (39.0-53.0) % Neutrophils # (1.3-7.7) k/uL ABG pH (7.35-7.45) ABG pCO2 (35-45) mmHg ABG pO2 (83-108) mmHg ABG HCO3 (21-25) mmol/L ABG Total CO2 (19-24) mmol/L ABG O2 Saturation (94-97) % ABG Potassium (3.4-4.5) mmol/L ABG Glucose (75-99) mg/dL Hemoglobin (13.0-17.5) gm/dL Sodium (137-145) mmol/L BUN (9-20) mg/dL Glucose (74-99) mg/dL POC Glucose (mg/dL) 234 H 205 H (70-110) mg/dL Calcium (8.4-10.2) mg/dL AST (17-59) U/L Total Protein (6.3-8.2) g/dL Albumin (3.5-5.0) g/dL Arterial Blood Potassium (3.4-4.5) mmol/L Arterial Blood Glucose (75-99) mg/dL Crossmatch See Detail 10/11/24 10/11/24 10/11/24 Range/Units 10:02 10:54 11:59 WBC (3.8-10.6) k/uL RBC (4.30-5.90) m/uL Hgb (13.0-17.5) gm/dL Hct (39.0-53.0) % Neutrophils # (1.3-7.7) k/uL ABG pH 7.34 L 7.31 L (7.35-7.45) ABG pCO2 46 H 51 H (35-45) mmHg ABG pO2 133 H 141 H (83-108) mmHg ABG HCO3 26 H (21-25) mmol/L ABG Total CO2 (19-24) mmol/L ABG O2 Saturation 98.4 H 98.2 H (94-97) % ABG Potassium 4.6 H (3.4-4.5) mmol/L ABG Glucose 160 H 142 H (75-99) mg/dL Hemoglobin (13.0-17.5) gm/dL Sodium (137-145) mmol/L BUN (9-20) mg/dL Glucose (74-99) mg/dL POC Glucose (mg/dL) 182 H (70-110) mg/dL Calcium (8.4-10.2) mg/dL AST (17-59) U/L Total Protein (6.3-8.2) g/dL Albumin (3.5-5.0) g/dL Arterial Blood Potassium 4.6 H (3.4-4.5) mmol/L Arterial Blood Glucose 160 H 142 H (75-99) mg/dL Crossmatch 10/11/24 10/11/24 10/11/24 Range/Units 12:04 12:26 13:20 WBC (3.8-10.6) k/uL RBC (4.30-5.90) m/uL Hgb (13.0-17.5) gm/dL Hct (39.0-53.0) % Neutrophils # (1.3-7.7) k/uL ABG pH 7.32 L (7.35-7.45) ABG pCO2 48 H (35-45) mmHg ABG pO2 139 H 181 H 171 H (83-108) mmHg ABG HCO3 (21-25) mmol/L ABG Total CO2 (19-24) mmol/L ABG O2 Saturation 98.3 H 98.8 H 98.8 H (94-97) % ABG Potassium 4.6 H (3.4-4.5) mmol/L ABG Glucose 140 H 141 H 140 H (75-99) mg/dL Hemoglobin 12.8 L (13.0-17.5) gm/dL Sodium (137-145) mmol/L BUN (9-20) mg/dL Glucose (74-99) mg/dL POC Glucose (mg/dL) (70-110) mg/dL Calcium (8.4-10.2) mg/dL AST (17-59) U/L Total Protein (6.3-8.2) g/dL Albumin (3.5-5.0) g/dL Arterial Blood Potassium 4.6 H (3.4-4.5) mmol/L Arterial Blood Glucose 140 H 141 H 140 H (75-99) mg/dL Crossmatch 10/11/24 10/11/24 10/11/24 Range/Units 14:36 15:20 15:20 WBC 17.3 H (3.8-10.6) k/uL RBC 3.88 L (4.30-5.90) m/uL Hgb 12.5 L D (13.0-17.5) gm/dL Hct 36.3 L (39.0-53.0) % Neutrophils # 13.9 H (1.3-7.7) k/uL ABG pH (7.35-7.45) ABG pCO2 (35-45) mmHg ABG pO2 168 H (83-108) mmHg ABG HCO3 (21-25) mmol/L ABG Total CO2 (19-24) mmol/L ABG O2 Saturation 98.7 H (94-97) % ABG Potassium (3.4-4.5) mmol/L ABG Glucose 146 H (75-99) mg/dL Hemoglobin 11.8 L (13.0-17.5) gm/dL Sodium 136 L (137-145) mmol/L BUN 7 L (9-20) mg/dL Glucose 144 H (74-99) mg/dL POC Glucose (mg/dL) (70-110) mg/dL Calcium 7.9 L (8.4-10.2) mg/dL AST (17-59) U/L Total Protein 5.3 L (6.3-8.2) g/dL Albumin 3.3 L (3.5-5.0) g/dL Arterial Blood Potassium (3.4-4.5) mmol/L Arterial Blood Glucose 146 H (75-99) mg/dL Crossmatch 10/11/24 10/11/24 10/11/24 Range/Units 15:24 15:48 16:08 WBC (3.8-10.6) k/uL RBC (4.30-5.90) m/uL Hgb (13.0-17.5) gm/dL Hct (39.0-53.0) % Neutrophils # (1.3-7.7) k/uL ABG pH 7.29 L (7.35-7.45) ABG pCO2 49 H (35-45) mmHg ABG pO2 231 H (83-108) mmHg ABG HCO3 (21-25) mmol/L ABG Total CO2 25 H (19-24) mmol/L ABG O2 Saturation 99.9 H (94-97) % ABG Potassium (3.4-4.5) mmol/L ABG Glucose (75-99) mg/dL Hemoglobin (13.0-17.5) gm/dL Sodium (137-145) mmol/L BUN (9-20) mg/dL Glucose (74-99) mg/dL POC Glucose (mg/dL) 151 H 164 H (70-110) mg/dL Calcium (8.4-10.2) mg/dL AST (17-59) U/L Total Protein (6.3-8.2) g/dL Albumin (3.5-5.0) g/dL Arterial Blood Potassium (3.4-4.5) mmol/L Arterial Blood Glucose (75-99) mg/dL Crossmatch 10/11/24 10/11/24 10/11/24 Range/Units 17:08 18:13 18:25 WBC 17.7 H (3.8-10.6) k/uL RBC 4.11 L (4.30-5.90) m/uL Hgb (13.0-17.5) gm/dL Hct 38.5 L (39.0-53.0) % Neutrophils # 14.6 H (1.3-7.7) k/uL ABG pH (7.35-7.45) ABG pCO2 (35-45) mmHg ABG pO2 (83-108) mmHg ABG HCO3 (21-25) mmol/L ABG Total CO2 (19-24) mmol/L ABG O2 Saturation (94-97) % ABG Potassium (3.4-4.5) mmol/L ABG Glucose (75-99) mg/dL Hemoglobin (13.0-17.5) gm/dL Sodium (137-145) mmol/L BUN (9-20) mg/dL Glucose (74-99) mg/dL POC Glucose (mg/dL) 173 H 173 H (70-110) mg/dL Calcium (8.4-10.2) mg/dL AST (17-59) U/L Total Protein (6.3-8.2) g/dL Albumin (3.5-5.0) g/dL Arterial Blood Potassium (3.4-4.5) mmol/L Arterial Blood Glucose (75-99) mg/dL Crossmatch 10/11/24 10/11/24 10/11/24 Range/Units 19:04 20:06 21:02 WBC (3.8-10.6) k/uL RBC (4.30-5.90) m/uL Hgb (13.0-17.5) gm/dL Hct (39.0-53.0) % Neutrophils # (1.3-7.7) k/uL ABG pH (7.35-7.45) ABG pCO2 (35-45) mmHg ABG pO2 (83-108) mmHg ABG HCO3 (21-25) mmol/L ABG Total CO2 (19-24) mmol/L ABG O2 Saturation (94-97) % ABG Potassium (3.4-4.5) mmol/L ABG Glucose (75-99) mg/dL Hemoglobin (13.0-17.5) gm/dL Sodium (137-145) mmol/L BUN (9-20) mg/dL Glucose (74-99) mg/dL POC Glucose (mg/dL) 165 H 138 H 132 H (70-110) mg/dL Calcium (8.4-10.2) mg/dL AST (17-59) U/L Total Protein (6.3-8.2) g/dL Albumin (3.5-5.0) g/dL Arterial Blood Potassium (3.4-4.5) mmol/L Arterial Blood Glucose (75-99) mg/dL Crossmatch 10/11/24 10/11/24 10/11/24 Range/Units 21:28 21:28 22:00 WBC 15.6 H (3.8-10.6) k/uL RBC 3.99 L (4.30-5.90) m/uL Hgb 12.7 L (13.0-17.5) gm/dL Hct 37.7 L (39.0-53.0) % Neutrophils # 13.6 H (1.3-7.7) k/uL ABG pH (7.35-7.45) ABG pCO2 (35-45) mmHg ABG pO2 (83-108) mmHg ABG HCO3 (21-25) mmol/L ABG Total CO2 (19-24) mmol/L ABG O2 Saturation (94-97) % ABG Potassium (3.4-4.5) mmol/L ABG Glucose (75-99) mg/dL Hemoglobin (13.0-17.5) gm/dL Sodium 135 L (137-145) mmol/L BUN 7 L (9-20) mg/dL Glucose 130 H (74-99) mg/dL POC Glucose (mg/dL) 124 H (70-110) mg/dL Calcium (8.4-10.2) mg/dL AST 66 H (17-59) U/L Total Protein 5.8 L (6.3-8.2) g/dL Albumin (3.5-5.0) g/dL Arterial Blood Potassium (3.4-4.5) mmol/L Arterial Blood Glucose (75-99) mg/dL Crossmatch 10/11/24 10/12/24 10/12/24 Range/Units 23:02 00:03 01:03 WBC (3.8-10.6) k/uL RBC (4.30-5.90) m/uL Hgb (13.0-17.5) gm/dL Hct (39.0-53.0) % Neutrophils # (1.3-7.7) k/uL ABG pH (7.35-7.45) ABG pCO2 (35-45) mmHg ABG pO2 (83-108) mmHg ABG HCO3 (21-25) mmol/L ABG Total CO2 (19-24) mmol/L ABG O2 Saturation (94-97) % ABG Potassium (3.4-4.5) mmol/L ABG Glucose (75-99) mg/dL Hemoglobin (13.0-17.5) gm/dL Sodium (137-145) mmol/L BUN (9-20) mg/dL Glucose (74-99) mg/dL POC Glucose (mg/dL) 124 H 120 H 114 H (70-110) mg/dL Calcium (8.4-10.2) mg/dL AST (17-59) U/L Total Protein (6.3-8.2) g/dL Albumin (3.5-5.0) g/dL Arterial Blood Potassium (3.4-4.5) mmol/L Arterial Blood Glucose (75-99) mg/dL Crossmatch 10/12/24 10/12/24 10/12/24 Range/Units 02:01 03:08 04:15 WBC (3.8-10.6) k/uL RBC (4.30-5.90) m/uL Hgb (13.0-17.5) gm/dL Hct (39.0-53.0) % Neutrophils # (1.3-7.7) k/uL ABG pH (7.35-7.45) ABG pCO2 (35-45) mmHg ABG pO2 (83-108) mmHg ABG HCO3 (21-25) mmol/L ABG Total CO2 (19-24) mmol/L ABG O2 Saturation (94-97) % ABG Potassium (3.4-4.5) mmol/L ABG Glucose (75-99) mg/dL Hemoglobin (13.0-17.5) gm/dL Sodium (137-145) mmol/L BUN (9-20) mg/dL Glucose (74-99) mg/dL POC Glucose (mg/dL) 139 H 127 H 121 H (70-110) mg/dL Calcium (8.4-10.2) mg/dL AST (17-59) U/L Total Protein (6.3-8.2) g/dL Albumin (3.5-5.0) g/dL Arterial Blood Potassium (3.4-4.5) mmol/L Arterial Blood Glucose (75-99) mg/dL Crossmatch 10/12/24 10/12/24 10/12/24 Range/Units 05:25 05:27 05:35 WBC 15.7 H (3.8-10.6) k/uL RBC 4.12 L (4.30-5.90) m/uL Hgb 12.7 L (13.0-17.5) gm/dL Hct (39.0-53.0) % Neutrophils # 11.5 H (1.3-7.7) k/uL ABG pH (7.35-7.45) ABG pCO2 (35-45) mmHg ABG pO2 (83-108) mmHg ABG HCO3 (21-25) mmol/L ABG Total CO2 (19-24) mmol/L ABG O2 Saturation (94-97) % ABG Potassium (3.4-4.5) mmol/L ABG Glucose (75-99) mg/dL Hemoglobin (13.0-17.5) gm/dL Sodium 134 L (137-145) mmol/L BUN 6 L (9-20) mg/dL Glucose 109 H (74-99) mg/dL POC Glucose (mg/dL) 119 H (70-110) mg/dL Calcium (8.4-10.2) mg/dL AST (17-59) U/L Total Protein 5.7 L (6.3-8.2) g/dL Albumin (3.5-5.0) g/dL Arterial Blood Potassium (3.4-4.5) mmol/L Arterial Blood Glucose (75-99) mg/dL Crossmatch 10/12/24 Range/Units 06:41 WBC (3.8-10.6) k/uL RBC (4.30-5.90) m/uL Hgb (13.0-17.5) gm/dL Hct (39.0-53.0) % Neutrophils # (1.3-7.7) k/uL ABG pH (7.35-7.45) ABG pCO2 (35-45) mmHg ABG pO2 (83-108) mmHg ABG HCO3 (21-25) mmol/L ABG Total CO2 (19-24) mmol/L ABG O2 Saturation (94-97) % ABG Potassium (3.4-4.5) mmol/L ABG Glucose (75-99) mg/dL Hemoglobin (13.0-17.5) gm/dL Sodium (137-145) mmol/L BUN (9-20) mg/dL Glucose (74-99) mg/dL POC Glucose (mg/dL) 123 H (70-110) mg/dL Calcium (8.4-10.2) mg/dL AST (17-59) U/L Total Protein (6.3-8.2) g/dL Albumin (3.5-5.0) g/dL Arterial Blood Potassium (3.4-4.5) mmol/L Arterial Blood Glucose (75-99) mg/dL Crossmatch - Imaging and Cardiology Chest x-ray: image reviewed Assessment and Plan Assessment: Coronary artery disease, acute inferior wall myocardial infarction secondary to the RCA occlusion, unstable angina, status post urgent 5 vessel off-pump CABG Ischemic cardiomyopathy, EF 30 to 35% History of hypertension Hyperlipidemia, cholesterol 163, LDL 82, triglycerides 274 Untreated diabetes mellitus type 2 with uncontrolled hyperglycemia due to patient noncompliance, hemoglobin A1c 9.4% Obesity Chronic ongoing tobacco dependence Daily marijuana use Osteoarthritis Family history of premature coronary artery disease Plan: Continue to maximize medical therapy with aspirin, statin, Plavix, beta-ludivina. Will increase beta-ludivina therapy as tolerated Discontinue IV nitro. Will start oral calcium channel ludivina for radial artery spasm prophylaxis Wean oxygen as tolerated. Encourage incentive spirometry use 10 times every hour while awake. Bronchodilators per pulmonology Increase activity, ambulate as tolerated. PT/OT/cardiac rehab consulted Will monitor daily labs and x-rays. Electrolyte replacement per protocol GI/DVT prophylaxis Insulin management per internal medicine, patient should remain on IV insulin for 48 hours, then may switch to subcutaneous per protocol Pain control per current medication regimen, will add Toradol Discontinue nellie Burdick to continuous CVP monitoring Smoking cessation counseling and education reinforced More recommendations to follow
--- NOTE | 2024-10-12 07:48 | XR ---
EXAMINATION TYPE: XR chest 1V portable DATE OF EXAM: 10/12/2024 6:09 AM COMPARISON: 10/11/2024 CLINICAL INDICATION: Male, 49 years old with history of Post Operative Cardiac Surgery, , FINDINGS: Median sternotomy wires and post-CABG clips. Interval extubation. Mediastinal drain and left-sided ch est tube remain in place. No appreciable pneumothorax. Right IJ [place] catheter tip at the proxima l right main pulmonary artery level. Heart mildly enlarged. Diffuse interstitial density though with some improvement in the interstitium. Ongoing small left pleural effusion but with some increasing pa tchy left lower lung opacity. IMPRESSION: Post-CABG changes with interval extubation. Some improvement in the pulmonary vascular congestion but slight worsening of the small left pleural effusion with adjacent atelectasis and/or consolidation. [facility], , 10/12/2024 7:46 AM
[2024-10-12] MEDS: DILTIAZEM ORAL 30 MG TAB PO SCH (08:28)
[2024-10-12] MEDS: METOPROLOL TARTRATE 25 MG TAB PO SCH ×2 (08:28→16:17)
[2024-10-12 08:40] LABS: Glucose,Whole Blood 209 mg/dL (70-110)
[2024-10-12] MEDS: IPRATROPIUM-ALBUTEROL 3 ML NEB INHALATION SCH (08:56)
[2024-10-12] MEDS ORDERED: bisacodyL 10 MG SUPP RECTAL PRN (09:00)
[2024-10-12] MEDS ORDERED: MAGNESIUM HYDROXIDE 2,400 MG/30 ML CUP PO PRN (09:00)
[2024-10-12] MEDS: PANTOPRAZOLE 40 MG/10 ML VIAL IVP SCH (09:14)
[2024-10-12] MEDS: ATORVASTATIN 40 MG TAB PO SCH (09:15)
[2024-10-12] MEDS: ASPIRIN 325 MG TAB PO SCH (09:15)
[2024-10-12] MEDS: CLOPIDOGREL 75 MG TAB PO SCH (09:15)
[2024-10-12] MEDS: KETOROLAC 15 MG/ML 1 ML VIAL IVP SCH (09:19)
--- NOTE | 2024-10-12 09:42 | P.PN ---
Subjective Progress Note Date: 10/12/24 49-year-old male patient was being seen in the intensive care is following earl nary artery bypass surgery. The patient underwent an urgent four-vessel bypass surgery including VERGARA to LAD and first diagonal and sequential left radial artery graft to second and third obtuse marginal branch and saphenous vein graft to PDA. The patient has multivessel coronary disease and the patient is status post inferior wall myocardial infarction secondary to RCA occlusion. He initially presented to us with heartburn and he ruled in for inferior wall myocardial infarction. Cardiac catheterization was done and subsequent and the patient was taken to the operating room for urgent revascularization. At the time of my evaluation, the patient was intubated on the mechanical ventilator. The patient was sedated with propofol running at 30 mcg/kg/min. The patient was on the mechanical ventilator on assist-control mode with rate of 14, tidal volume of 600, FiO2 of 100% with a PEEP of 10. Initial blood gas showed a pH of 7.29 with a pCO2 of 48 and pO2 of 231. Chest x-ray showed a dequate expansion of both lungs. Left lower remedy such issues were all in place. The patient had a [place] catheter placed. PA pressures were 35/26. Cardiac output was at 9.2 with an index of 3.6. Adequate urine output. No pressors. The cardiac rhythm is sinus. The patient was on nitroglycerin at 5 mcg/min and the patient was on insulin drip at 8 units an hour. White cell count at 17.7 with a hemoglobin 15.2 and a platelet count of 225. Output from the chest tubes are minimal less than 200 cc from each pleural and mediastinal chest tube. Remains hemodynamically stable. Noted the preoperative echocardiogram showed impairment in the LV function with an estimated ejection fraction of 30 to 35%. The patient is known to have hypertension, hyperlipidemia, type 2 diabetes mellitus and is a chronic smoker. He also has a positive family history for coronary artery disease. On 10/12/2024, the patient is being seen for a follow-up. The patient is postop day #1. The patient underwent coronary bypass surgery and coronary revascularization. On today's evaluation, the patient is on 5 L of oxygen by nasal cannula. The patient was extubated yesterday to nasal cannula. Melissa harman, the patient is a normal sinus rhythm. He has encountered some sinus tachycardia since extubation. The patient is on low-dose metoprolol 25 mg p.o. twice a day. Urine output is being monitored. Blood pressure is soft and the patient was given a dose of IV albumin overnight. Chest x-ray shows small left- sided pleural effusion. No pneumothorax. Chest tubes are in place. [place] in place. The output from the mediastinal chest tube has been 110 cc over the past 8 hours, none from the left pleural. The patient's cardiac output is 8.3 with an index of 3.3. PA pressures of 33/18. Remains on insulin drip at 7 units an hour. Remains on nitroglycerin drip at 5 mcg/min. White cell count of 15.7 with a hemoglobin 12.7 and a platelet count of 205. BUN is 6 with a creatinine of 0.7. Sodium levels at 134 with a potassium level of 4.2. LFTs are within normal limits. Using incentive spirometer. Neurologically intact. Objective - Vital Signs Vital signs: Vital Signs Temp 100.0 F H 10/12/24 04:00 Pulse 124 H 10/12/24 07:00 Resp 26 H 10/12/24 07:00 BP 119/80 10/12/24 07:00 Pulse Ox 93 L 10/12/24 06:00 FiO2 50 10/11/24 17:16 Intake & Output 10/11/24 10/12/24 10/12/24 18:59 06:59 18:59 Intake Total 804.548 710.457 50 Output Total 935 946 84 Balance -130.452 -235.543 -34 Weight 122.7 kg 126.9 kg Intake: IV 640 634 50 CO/CI 60 60 Lines 27 54 Sodium Chloride 0.9% 1, 150 520 50 000 ml @ 20 mls/hr IV . Q24H [facility] Rx#:[id number] Intake, IV Titration 74.548 76.457 Amount Dexmedetomidine/0.9% NaCl 20.604 (Pmx) 400 mcg In Empty Bag 1 bag @ Titrate IV . Q0M [facility] Rx#:[id number] Insulin Regular 100 unit 18.668 76.457 In Sodium Chloride 0.9% 100 ml @ Per Protocol IV .Q0M [facility] Rx#:[id number] propofoL 1,000 mg In 35.276 Empty Bag 1 bag @ Titrate IV .Q0M [facility] Rx#: [id number] Oral 90 Output: Chest Tube Drainage 170 196 34 Left Pleural - 36f 95 36 4 Mediastinal 32f 75 160 30 Drainage 35 Left Wrist 10 Right Calf 25 Urine 465 715 50 Estimated Blood Loss 300 Other: Voiding Method Indwelling Catheter Indwelling Catheter ABP, PAP, CO, CI - Last Documented Arterial Blood Pressure 87/86 Pulmonary Artery Pressure 28/14 Cardiac Output 8.3 Cardiac Index 3.3 - Exam CONSTITUTIONAL: Appears comfortable, cooperative, no acute distress RESPIRATORY: Lungs sounds diminished in the bases bilaterally. Respirations even, nonlabored. Currently on 5 L nasal cannula with oxygen saturation 95%. Able to achieve 4273-1898 mL on incentive spirometry. Strong cough. CARDIOVASCULAR: S1, S2 present. Tachycardic but regular rate and rhythm, sinus tach on telemetry. Sternum stable. Palpable peripheral pulses bilaterally. No edema present. No calf pain or tenderness noted. Heart hugger, antiembolism stockings, SCDs present. GASTROINTESTINAL: Abdomen soft, nontender, nondistended. Hypoactive bowel sounds present 4 quadrants. Tolerating clear liquids. Positive belching, negative flatus GENITOURINARY: Zhang present draining clear, yellow urine. Output overnight 45-80 mL per hour INTEGUMENTARY: Skin is warm and dry with evidence of good perfusion. Anterior chest incision well approximated and covered with dry intact dressing. Left radial artery harvest site as well as right lower extremity EVH site well approximated without redness, MADDY drains present with minimal drainage NEUROLOGIC: Cranial nerves II through XII intact MUSKULOSKELETAL: Able to move all extremities, strength equal bilaterally, gait normal PSYCHIATRIC: Alert and oriented to person place and time, appropriate affect, intact judgment and insight INVASIVE LINES AND TUBES: Mediastinal/left pleural chest tubes present and connected to wall suction, no air leaks present. serosanguineous drainage overnight, 300 mL since surgery. Left pleural chest tube with 2 mL serosanguineous drainage overnight, 120 mL since surgery. Right internal jugular [place] present. Last CO/CI 8.3/3.3, PA 35/20, CVP 14. - Labs CBC & Chem 7: 10/12/24 05:35 10/12/24 05:25 Labs: Abnormal Lab Results - Last 24 Hours (Table) 10/11/24 10/11/24 10/11/24 Range/Units 06:44 08:54 09:45 WBC (3.8-10.6) k/uL RBC (4.30-5.90) m/uL Hgb (13.0-17.5) gm/dL Hct (39.0-53.0) % Neutrophils # (1.3-7.7) k/uL ABG pH (7.35-7.45) ABG pCO2 (35-45) mmHg ABG pO2 (83-108) mmHg ABG HCO3 (21-25) mmol/L ABG Total CO2 (19-24) mmol/L ABG O2 Saturation (94-97) % ABG Potassium (3.4-4.5) mmol/L ABG Glucose (75-99) mg/dL Hemoglobin (13.0-17.5) gm/dL Sodium (137-145) mmol/L BUN (9-20) mg/dL Glucose (74-99) mg/dL POC Glucose (mg/dL) 234 H 205 H (70-110) mg/dL Calcium (8.4-10.2) mg/dL AST (17-59) U/L Total Protein (6.3-8.2) g/dL Albumin (3.5-5.0) g/dL Arterial Blood Potassium (3.4-4.5) mmol/L Arterial Blood Glucose (75-99) mg/dL Crossmatch See Detail 10/11/24 10/11/24 10/11/24 Range/Units 10:02 10:54 11:59 WBC (3.8-10.6) k/uL RBC (4.30-5.90) m/uL Hgb (13.0-17.5) gm/dL Hct (39.0-53.0) % Neutrophils # (1.3-7.7) k/uL ABG pH 7.34 L 7.31 L (7.35-7.45) ABG pCO2 46 H 51 H (35-45) mmHg ABG pO2 133 H 141 H (83-108) mmHg ABG HCO3 26 H (21-25) mmol/L ABG Total CO2 (19-24) mmol/L ABG O2 Saturation 98.4 H 98.2 H (94-97) % ABG Potassium 4.6 H (3.4-4.5) mmol/L ABG Glucose 160 H 142 H (75-99) mg/dL Hemoglobin (13.0-17.5) gm/dL Sodium (137-145) mmol/L BUN (9-20) mg/dL Glucose (74-99) mg/dL POC Glucose (mg/dL) 182 H (70-110) mg/dL Calcium (8.4-10.2) mg/dL AST (17-59) U/L Total Protein (6.3-8.2) g/dL Albumin (3.5-5.0) g/dL Arterial Blood Potassium 4.6 H (3.4-4.5) mmol/L Arterial Blood Glucose 160 H 142 H (75-99) mg/dL Crossmatch 10/11/24 10/11/24 10/11/24 Range/Units 12:04 12:26 13:20 WBC (3.8-10.6) k/uL RBC (4.30-5.90) m/uL Hgb (13.0-17.5) gm/dL Hct (39.0-53.0) % Neutrophils # (1.3-7.7) k/uL ABG pH 7.32 L (7.35-7.45) ABG pCO2 48 H (35-45) mmHg ABG pO2 139 H 181 H 171 H (83-108) mmHg ABG HCO3 (21-25) mmol/L ABG Total CO2 (19-24) mmol/L ABG O2 Saturation 98.3 H 98.8 H 98.8 H (94-97) % ABG Potassium 4.6 H (3.4-4.5) mmol/L ABG Glucose 140 H 141 H 140 H (75-99) mg/dL Hemoglobin 12.8 L (13.0-17.5) gm/dL Sodium (137-145) mmol/L BUN (9-20) mg/dL Glucose (74-99) mg/dL POC Glucose (mg/dL) (70-110) mg/dL Calcium (8.4-10.2) mg/dL AST (17-59) U/L Total Protein (6.3-8.2) g/dL Albumin (3.5-5.0) g/dL Arterial Blood Potassium 4.6 H (3.4-4.5) mmol/L Arterial Blood Glucose 140 H 141 H 140 H (75-99) mg/dL Crossmatch 10/11/24 10/11/24 10/11/24 Range/Units 14:36 15:20 15:20 WBC 17.3 H (3.8-10.6) k/uL RBC 3.88 L (4.30-5.90) m/uL Hgb 12.5 L D (13.0-17.5) gm/dL Hct 36.3 L (39.0-53.0) % Neutrophils # 13.9 H (1.3-7.7) k/uL ABG pH (7.35-7.45) ABG pCO2 (35-45) mmHg ABG pO2 168 H (83-108) mmHg ABG HCO3 (21-25) mmol/L ABG Total CO2 (19-24) mmol/L ABG O2 Saturation 98.7 H (94-97) % ABG Potassium (3.4-4.5) mmol/L ABG Glucose 146 H (75-99) mg/dL Hemoglobin 11.8 L (13.0-17.5) gm/dL Sodium 136 L (137-145) mmol/L BUN 7 L (9-20) mg/dL Glucose 144 H (74-99) mg/dL POC Glucose (mg/dL) (70-110) mg/dL Calcium 7.9 L (8.4-10.2) mg/dL AST (17-59) U/L Total Protein 5.3 L (6.3-8.2) g/dL Albumin 3.3 L (3.5-5.0) g/dL Arterial Blood Potassium (3.4-4.5) mmol/L Arterial Blood Glucose 146 H (75-99) mg/dL Crossmatch 10/11/24 10/11/24 10/11/24 Range/Units 15:24 15:48 16:08 WBC (3.8-10.6) k/uL RBC (4.30-5.90) m/uL Hgb (13.0-17.5) gm/dL Hct (39.0-53.0) % Neutrophils # (1.3-7.7) k/uL ABG pH 7.29 L (7.35-7.45) ABG pCO2 49 H (35-45) mmHg ABG pO2 231 H (83-108) mmHg ABG HCO3 (21-25) mmol/L ABG Total CO2 25 H (19-24) mmol/L ABG O2 Saturation 99.9 H (94-97) % ABG Potassium (3.4-4.5) mmol/L ABG Glucose (75-99) mg/dL Hemoglobin (13.0-17.5) gm/dL Sodium (137-145) mmol/L BUN (9-20) mg/dL Glucose (74-99) mg/dL POC Glucose (mg/dL) 151 H 164 H (70-110) mg/dL Calcium (8.4-10.2) mg/dL AST (17-59) U/L Total Protein (6.3-8.2) g/dL Albumin (3.5-5.0) g/dL Arterial Blood Potassium (3.4-4.5) mmol/L Arterial Blood Glucose (75-99) mg/dL Crossmatch 10/11/24 10/11/24 10/11/24 Range/Units 17:08 18:13 18:25 WBC 17.7 H (3.8-10.6) k/uL RBC 4.11 L (4.30-5.90) m/uL Hgb (13.0-17.5) gm/dL Hct 38.5 L (39.0-53.0) % Neutrophils # 14.6 H (1.3-7.7) k/uL ABG pH (7.35-7.45) ABG pCO2 (35-45) mmHg ABG pO2 (83-108) mmHg ABG HCO3 (21-25) mmol/L ABG Total CO2 (19-24) mmol/L ABG O2 Saturation (94-97) % ABG Potassium (3.4-4.5) mmol/L ABG Glucose (75-99) mg/dL Hemoglobin (13.0-17.5) gm/dL Sodium (137-145) mmol/L BUN (9-20) mg/dL Glucose (74-99) mg/dL POC Glucose (mg/dL) 173 H 173 H (70-110) mg/dL Calcium (8.4-10.2) mg/dL AST (17-59) U/L Total Protein (6.3-8.2) g/dL Albumin (3.5-5.0) g/dL Arterial Blood Potassium (3.4-4.5) mmol/L Arterial Blood Glucose (75-99) mg/dL Crossmatch 10/11/24 10/11/24 10/11/24 Range/Units 19:04 20:06 21:02 WBC (3.8-10.6) k/uL RBC (4.30-5.90) m/uL Hgb (13.0-17.5) gm/dL Hct (39.0-53.0) % Neutrophils # (1.3-7.7) k/uL ABG pH (7.35-7.45) ABG pCO2 (35-45) mmHg ABG pO2 (83-108) mmHg ABG HCO3 (21-25) mmol/L ABG Total CO2 (19-24) mmol/L ABG O2 Saturation (94-97) % ABG Potassium (3.4-4.5) mmol/L ABG Glucose (75-99) mg/dL Hemoglobin (13.0-17.5) gm/dL Sodium (137-145) mmol/L BUN (9-20) mg/dL Glucose (74-99) mg/dL POC Glucose (mg/dL) 165 H 138 H 132 H (70-110) mg/dL Calcium (8.4-10.2) mg/dL AST (17-59) U/L Total Protein (6.3-8.2) g/dL Albumin (3.5-5.0) g/dL Arterial Blood Potassium (3.4-4.5) mmol/L Arterial Blood Glucose (75-99) mg/dL Crossmatch 10/11/24 10/11/24 10/11/24 Range/Units 21:28 21:28 22:00 WBC 15.6 H (3.8-10.6) k/uL RBC 3.99 L (4.30-5.90) m/uL Hgb 12.7 L (13.0-17.5) gm/dL Hct 37.7 L (39.0-53.0) % Neutrophils # 13.6 H (1.3-7.7) k/uL ABG pH (7.35-7.45) ABG pCO2 (35-45) mmHg ABG pO2 (83-108) mmHg ABG HCO3 (21-25) mmol/L ABG Total CO2 (19-24) mmol/L ABG O2 Saturation (94-97) % ABG Potassium (3.4-4.5) mmol/L ABG Glucose (75-99) mg/dL Hemoglobin (13.0-17.5) gm/dL Sodium 135 L (137-145) mmol/L BUN 7 L (9-20) mg/dL Glucose 130 H (74-99) mg/dL POC Glucose (mg/dL) 124 H (70-110) mg/dL Calcium (8.4-10.2) mg/dL AST 66 H (17-59) U/L Total Protein 5.8 L (6.3-8.2) g/dL Albumin (3.5-5.0) g/dL Arterial Blood Potassium (3.4-4.5) mmol/L Arterial Blood Glucose (75-99) mg/dL Crossmatch 10/11/24 10/12/24 10/12/24 Range/Units 23:02 00:03 01:03 WBC (3.8-10.6) k/uL RBC (4.30-5.90) m/uL Hgb (13.0-17.5) gm/dL Hct (39.0-53.0) % Neutrophils # (1.3-7.7) k/uL ABG pH (7.35-7.45) ABG pCO2 (35-45) mmHg ABG pO2 (83-108) mmHg ABG HCO3 (21-25) mmol/L ABG Total CO2 (19-24) mmol/L ABG O2 Saturation (94-97) % ABG Potassium (3.4-4.5) mmol/L ABG Glucose (75-99) mg/dL Hemoglobin (13.0-17.5) gm/dL Sodium (137-145) mmol/L BUN (9-20) mg/dL Glucose (74-99) mg/dL POC Glucose (mg/dL) 124 H 120 H 114 H (70-110) mg/dL Calcium (8.4-10.2) mg/dL AST (17-59) U/L Total Protein (6.3-8.2) g/dL Albumin (3.5-5.0) g/dL Arterial Blood Potassium (3.4-4.5) mmol/L Arterial Blood Glucose (75-99) mg/dL Crossmatch 10/12/24 10/12/24 10/12/24 Range/Units 02:01 03:08 04:15 WBC (3.8-10.6) k/uL RBC (4.30-5.90) m/uL Hgb (13.0-17.5) gm/dL Hct (39.0-53.0) % Neutrophils # (1.3-7.7) k/uL ABG pH (7.35-7.45) ABG pCO2 (35-45) mmHg ABG pO2 (83-108) mmHg ABG HCO3 (21-25) mmol/L ABG Total CO2 (19-24) mmol/L ABG O2 Saturation (94-97) % ABG Potassium (3.4-4.5) mmol/L ABG Glucose (75-99) mg/dL Hemoglobin (13.0-17.5) gm/dL Sodium (137-145) mmol/L BUN (9-20) mg/dL Glucose (74-99) mg/dL POC Glucose (mg/dL) 139 H 127 H 121 H (70-110) mg/dL Calcium (8.4-10.2) mg/dL AST (17-59) U/L Total Protein (6.3-8.2) g/dL Albumin (3.5-5.0) g/dL Arterial Blood Potassium (3.4-4.5) mmol/L Arterial Blood Glucose (75-99) mg/dL Crossmatch 10/12/24 10/12/24 10/12/24 Range/Units 05:25 05:27 05:35 WBC 15.7 H (3.8-10.6) k/uL RBC 4.12 L (4.30-5.90) m/uL Hgb 12.7 L (13.0-17.5) gm/dL Hct (39.0-53.0) % Neutrophils # 11.5 H (1.3-7.7) k/uL ABG pH (7.35-7.45) ABG pCO2 (35-45) mmHg ABG pO2 (83-108) mmHg ABG HCO3 (21-25) mmol/L ABG Total CO2 (19-24) mmol/L ABG O2 Saturation (94-97) % ABG Potassium (3.4-4.5) mmol/L ABG Glucose (75-99) mg/dL Hemoglobin (13.0-17.5) gm/dL Sodium 134 L (137-145) mmol/L BUN 6 L (9-20) mg/dL Glucose 109 H (74-99) mg/dL POC Glucose (mg/dL) 119 H (70-110) mg/dL Calcium (8.4-10.2) mg/dL AST (17-59) U/L Total Protein 5.7 L (6.3-8.2) g/dL Albumin (3.5-5.0) g/dL Arterial Blood Potassium (3.4-4.5) mmol/L Arterial Blood Glucose (75-99) mg/dL Crossmatch 10/12/24 Range/Units 06:41 WBC (3.8-10.6) k/uL RBC (4.30-5.90) m/uL Hgb (13.0-17.5) gm/dL Hct (39.0-53.0) % Neutrophils # (1.3-7.7) k/uL ABG pH (7.35-7.45) ABG pCO2 (35-45) mmHg ABG pO2 (83-108) mmHg ABG HCO3 (21-25) mmol/L ABG Total CO2 (19-24) mmol/L ABG O2 Saturation (94-97) % ABG Potassium (3.4-4.5) mmol/L ABG Glucose (75-99) mg/dL Hemoglobin (13.0-17.5) gm/dL Sodium (137-145) mmol/L BUN (9-20) mg/dL Glucose (74-99) mg/dL POC Glucose (mg/dL) 123 H (70-110) mg/dL Calcium (8.4-10.2) mg/dL AST (17-59) U/L Total Protein (6.3-8.2) g/dL Albumin (3.5-5.0) g/dL Arterial Blood Potassium (3.4-4.5) mmol/L Arterial Blood Glucose (75-99) mg/dL Crossmatch Assessment and Plan Plan: Multivessel coronary artery disease, symptoms of the patient is status post urgent coronary artery bypass grafting x 5 with sequential VERGARA to first diagonal and LAD, sequential left radial artery graft to second and third obtuse marginal branches, saphenous vein graft to posterior descending coronary artery. The patient is currently postop day #1. Cardiac rhythm is sinus and the patient is in sinus tachycardia., Hemodynamically stable and the patient has adequate cardiac output and index. Maintained on nitroglycerin drip, low-dose. Postthoracotomy related to bypass surgery, extubated the patient is currently on 5 L of oxygen by nasal cannula. Mediastinal and pleural chest tubes are in place. Output is minimal. No evidence of any air leak. Sinus tachycardia Status post inferior wall myocardial infarction, non-ST segment elevation myocardial infarction Ischemic cardiomyopathy with an ejection fraction of 30 to 35%, preop Diabetes mellitus type 2, currently on insulin drip for blood sugar control Hypertension Hyperlipidemia History of smoking Plan continue using the sinus parameter Pulmonary toileting Monitor output from the chest tubes Beta-blockers with metoprolol 25 mg twice a day Aspirin and Plavix Monitor output from the chest tubes Chest x-ray was reviewed Hemodynamically stable with adequate cardiac output and index May discontinue nitroglycerin drip Insulin drip for blood sugar control Adequate urine output Will continue to follow. Critical care evaluation.
[2024-10-12 09:48] LABS: Glucose,Whole Blood 187 mg/dL (70-110)
[2024-10-12 11:13] LABS: Glucose,Whole Blood 153 mg/dL (70-110)
[2024-10-12 12:14] LABS: Glucose,Whole Blood 141 mg/dL (70-110)
[2024-10-12 13:13] LABS: Glucose,Whole Blood 239 mg/dL (70-110)
[2024-10-12 14:06] LABS: Glucose,Whole Blood 239 mg/dL (70-110)
[2024-10-12 15:10] LABS: Glucose,Whole Blood 232 mg/dL (70-110)
--- NOTE | 2024-10-12 15:27 | P.PN ---
Subjective HISTORY OF PRESENTING ILLNESS This is a pleasant 49-year-old with past medical history significant for hypertension, hyperlipidemia is, diabetes mellitus type 2, tobacco abuse, spinal stenosis, family history of CAD and CAD. He presented to [facility] with heartburn and chest discomfort or last 2-3 weeks and was found to have non- STEMI with troponin up to 4000. He was chest pain-free and eventually underwent diagnostic heart catheterization which showed multivessel CAD with RCA 100% occluded, LAD 80-90% stenosis at the level of a diagonal branch and intermediate disease of the proximal circumflex as well as on 2 branch. Echocardiogram showed EF 40-45% with trace mitral regurgitation. He was transferred to [facility] for further assessment and surgical opinion. Repeat echo showed EF 30- 35% with mid to basal inferior wall hypokinesia. He underwent CABG x 5 with sequential VERGARA to first diagonal and LAD, left radial to OM 2 and 013, SVG to PDA and occlusion of the left atrial appendage with a 35mm AtriCure Clip. He remains on ventilator after surgery with currently 100% FiO2 however is being weaned. 10/12/24 Patient seen and examined. Patient extubated last night. Heart rates have been in the 100-120 range and therefore was placed on Cardizem as well as the metoprolol. Off of any vasopressors. On 5 L nasal cannula with oxygen saturations in the 90s. PHYSICAL EXAMINATION Vital signs reviewed. CONSTITUTIONAL: No apparent distress, awake and alert HEENT: Head is normocephalic. Pupils are equal, round. Sclerae anicteric. Mucous membranes of the mouth are moist. No JVD. No carotid bruit. CHEST EXAMINATION: Lungs are clear to auscultation. No chest wall tenderness is noted on palpation or with deep breathing. HEART EXAMINATION: Regular rate and rhythm. S1, S2 heard. No murmurs, gallops or rub. ABDOMEN: Soft, nontender. Positive bowel sounds. EXTREMITIES: 2+ peripheral pulses, no lower extremity edema and no calf tenderness. NEUROLOGIC EXAMINATION: Patient is alert and awake ASSESSMENT Non-STEMI CAD status post CABG 5 10/11/2024 Hypertension Hyperlipidemia Diabetes mellitus type 2 Ischemic cardiomyopathy EF 30-35% Tobacco abuse Family history of CAD PLAN Continue aspirin and Plavix Amiodarone for A. fib prevention Continue metoprolol as tolerated Wean sedation, ventilator as able Optimize heart failure regimen as blood pressure allows. Possibly add Losartan tomorrow if BP stable Further recommendations to follow. Objective - Vital Signs Vital signs: Vital Signs Temp 99.7 F H 10/12/24 08:00 Pulse 100 10/12/24 15:00 Resp 21 10/12/24 15:00 BP 116/68 10/12/24 15:00 Pulse Ox 95 10/12/24 15:00 FiO2 50 10/11/24 17:16 Intake & Output 10/11/24 10/12/24 10/12/24 18:59 06:59 18:59 Intake Total 804.548 710.457 604.458 Output Total 935 946 366 Balance -130.452 -235.543 238.458 Weight 122.7 kg 126.9 kg Intake: IV 640 634 543 Albumin Human 5% 250 ml 250 In Empty Bag 1 bag @ 250 mls/hr IVPB Q1HR PRN Rx#: [id number] CO/CI 60 60 Lines 27 54 33 Sodium Chloride 0.9% 1, 150 520 260 000 ml @ 20 mls/hr IV . Q24H ERASMO Rx#:[id number] Intake, IV Titration 74.548 76.457 61.458 Amount Dexmedetomidine/0.9% NaCl 20.604 (Pmx) 400 mcg In Empty Bag 1 bag @ Titrate IV . Q0M ERASMO Rx#:[id number] Insulin Regular 100 unit 18.668 76.457 61.458 In Sodium Chloride 0.9% 100 ml @ Per Protocol IV .Q0M ERASMO Rx#:[id number] propofoL 1,000 mg In 35.276 Empty Bag 1 bag @ Titrate IV .Q0M ERASMO Rx#: [id number] Oral 90 Output: Chest Tube Drainage 170 196 94 Left Pleural - 36f 95 36 4 Mediastinal 32f 75 160 90 Drainage 35 30 Left Wrist 10 Right Calf 25 30 Urine 465 715 242 Estimated Blood Loss 300 Other: Voiding Method Indwelling Catheter Indwelling Catheter Indwelling Catheter ABP, PAP, CO, CI - Last Documented Arterial Blood Pressure 87/86 Pulmonary Artery Pressure 30/14 Cardiac Output 8.3 Cardiac Index 3.3 - Labs CBC & Chem 7: 10/12/24 05:35 10/12/24 05:25 Labs: Abnormal Lab Results - Last 24 Hours (Table) 10/11/24 10/11/24 10/11/24 Range/Units 06:44 15:20 15:20 WBC 17.3 H (3.8-10.6) k/uL RBC 3.88 L (4.30-5.90) m/uL Hgb 12.5 L D (13.0-17.5) gm/dL Hct 36.3 L (39.0-53.0) % Neutrophils # 13.9 H (1.3-7.7) k/uL ABG pH (7.35-7.45) ABG pCO2 (35-45) mmHg ABG pO2 (83-108) mmHg ABG Total CO2 (19-24) mmol/L ABG O2 Saturation (94-97) % Sodium 136 L (137-145) mmol/L BUN 7 L (9-20) mg/dL Glucose 144 H (74-99) mg/dL POC Glucose (mg/dL) (70-110) mg/dL Calcium 7.9 L (8.4-10.2) mg/dL AST (17-59) U/L Total Protein 5.3 L (6.3-8.2) g/dL Albumin 3.3 L (3.5-5.0) g/dL Crossmatch See Detail 10/11/24 10/11/24 10/11/24 Range/Units 15:24 15:48 16:08 WBC (3.8-10.6) k/uL RBC (4.30-5.90) m/uL Hgb (13.0-17.5) gm/dL Hct (39.0-53.0) % Neutrophils # (1.3-7.7) k/uL ABG pH 7.29 L (7.35-7.45) ABG pCO2 49 H (35-45) mmHg ABG pO2 231 H (83-108) mmHg ABG Total CO2 25 H (19-24) mmol/L ABG O2 Saturation 99.9 H (94-97) % Sodium (137-145) mmol/L BUN (9-20) mg/dL Glucose (74-99) mg/dL POC Glucose (mg/dL) 151 H 164 H (70-110) mg/dL Calcium (8.4-10.2) mg/dL AST (17-59) U/L Total Protein (6.3-8.2) g/dL Albumin (3.5-5.0) g/dL Crossmatch 10/11/24 10/11/24 10/11/24 Range/Units 17:08 18:13 18:25 WBC 17.7 H (3.8-10.6) k/uL RBC 4.11 L (4.30-5.90) m/uL Hgb (13.0-17.5) gm/dL Hct 38.5 L (39.0-53.0) % Neutrophils # 14.6 H (1.3-7.7) k/uL ABG pH (7.35-7.45) ABG pCO2 (35-45) mmHg ABG pO2 (83-108) mmHg ABG Total CO2 (19-24) mmol/L ABG O2 Saturation (94-97) % Sodium (137-145) mmol/L BUN (9-20) mg/dL Glucose (74-99) mg/dL POC Glucose (mg/dL) 173 H 173 H (70-110) mg/dL Calcium (8.4-10.2) mg/dL AST (17-59) U/L Total Protein (6.3-8.2) g/dL Albumin (3.5-5.0) g/dL Crossmatch 10/11/24 10/11/24 10/11/24 Range/Units 19:04 20:06 21:02 WBC (3.8-10.6) k/uL RBC (4.30-5.90) m/uL Hgb (13.0-17.5) gm/dL Hct (39.0-53.0) % Neutrophils # (1.3-7.7) k/uL ABG pH (7.35-7.45) ABG pCO2 (35-45) mmHg ABG pO2 (83-108) mmHg ABG Total CO2 (19-24) mmol/L ABG O2 Saturation (94-97) % Sodium (137-145) mmol/L BUN (9-20) mg/dL Glucose (74-99) mg/dL POC Glucose (mg/dL) 165 H 138 H 132 H (70-110) mg/dL Calcium (8.4-10.2) mg/dL AST (17-59) U/L Total Protein (6.3-8.2) g/dL Albumin (3.5-5.0) g/dL Crossmatch 10/11/24 10/11/24 10/11/24 Range/Units 21:28 21:28 22:00 WBC 15.6 H (3.8-10.6) k/uL RBC 3.99 L (4.30-5.90) m/uL Hgb 12.7 L (13.0-17.5) gm/dL Hct 37.7 L (39.0-53.0) % Neutrophils # 13.6 H (1.3-7.7) k/uL ABG pH (7.35-7.45) ABG pCO2 (35-45) mmHg ABG pO2 (83-108) mmHg ABG Total CO2 (19-24) mmol/L ABG O2 Saturation (94-97) % Sodium 135 L (137-145) mmol/L BUN 7 L (9-20) mg/dL Glucose 130 H (74-99) mg/dL POC Glucose (mg/dL) 124 H (70-110) mg/dL Calcium (8.4-10.2) mg/dL AST 66 H (17-59) U/L Total Protein 5.8 L (6.3-8.2) g/dL Albumin (3.5-5.0) g/dL Crossmatch 10/11/24 10/12/24 10/12/24 Range/Units 23:02 00:03 01:03 WBC (3.8-10.6) k/uL RBC (4.30-5.90) m/uL Hgb (13.0-17.5) gm/dL Hct (39.0-53.0) % Neutrophils # (1.3-7.7) k/uL ABG pH (7.35-7.45) ABG pCO2 (35-45) mmHg ABG pO2 (83-108) mmHg ABG Total CO2 (19-24) mmol/L ABG O2 Saturation (94-97) % Sodium (137-145) mmol/L BUN (9-20) mg/dL Glucose (74-99) mg/dL POC Glucose (mg/dL) 124 H 120 H 114 H (70-110) mg/dL Calcium (8.4-10.2) mg/dL AST (17-59) U/L Total Protein (6.3-8.2) g/dL Albumin (3.5-5.0) g/dL Crossmatch 10/12/24 10/12/24 10/12/24 Range/Units 02:01 03:08 04:15 WBC (3.8-10.6) k/uL RBC (4.30-5.90) m/uL Hgb (13.0-17.5) gm/dL Hct (39.0-53.0) % Neutrophils # (1.3-7.7) k/uL ABG pH (7.35-7.45) ABG pCO2 (35-45) mmHg ABG pO2 (83-108) mmHg ABG Total CO2 (19-24) mmol/L ABG O2 Saturation (94-97) % Sodium (137-145) mmol/L BUN (9-20) mg/dL Glucose (74-99) mg/dL POC Glucose (mg/dL) 139 H 127 H 121 H (70-110) mg/dL Calcium (8.4-10.2) mg/dL AST (17-59) U/L Total Protein (6.3-8.2) g/dL Albumin (3.5-5.0) g/dL Crossmatch 10/12/24 10/12/24 10/12/24 Range/Units 05:25 05:27 05:35 WBC 15.7 H (3.8-10.6) k/uL RBC 4.12 L (4.30-5.90) m/uL Hgb 12.7 L (13.0-17.5) gm/dL Hct (39.0-53.0) % Neutrophils # 11.5 H (1.3-7.7) k/uL ABG pH (7.35-7.45) ABG pCO2 (35-45) mmHg ABG pO2 (83-108) mmHg ABG Total CO2 (19-24) mmol/L ABG O2 Saturation (94-97) % Sodium 134 L (137-145) mmol/L BUN 6 L (9-20) mg/dL Glucose 109 H (74-99) mg/dL POC Glucose (mg/dL) 119 H (70-110) mg/dL Calcium (8.4-10.2) mg/dL AST (17-59) U/L Total Protein 5.7 L (6.3-8.2) g/dL Albumin (3.5-5.0) g/dL Crossmatch 10/12/24 10/12/24 10/12/24 Range/Units 06:41 08:38 09:46 WBC (3.8-10.6) k/uL RBC (4.30-5.90) m/uL Hgb (13.0-17.5) gm/dL Hct (39.0-53.0) % Neutrophils # (1.3-7.7) k/uL ABG pH (7.35-7.45) ABG pCO2 (35-45) mmHg ABG pO2 (83-108) mmHg ABG Total CO2 (19-24) mmol/L ABG O2 Saturation (94-97) % Sodium (137-145) mmol/L BUN (9-20) mg/dL Glucose (74-99) mg/dL POC Glucose (mg/dL) 123 H 209 H 187 H (70-110) mg/dL Calcium (8.4-10.2) mg/dL AST (17-59) U/L Total Protein (6.3-8.2) g/dL Albumin (3.5-5.0) g/dL Crossmatch 10/12/24 10/12/24 10/12/24 Range/Units 11:11 12:12 13:11 WBC (3.8-10.6) k/uL RBC (4.30-5.90) m/uL Hgb (13.0-17.5) gm/dL Hct (39.0-53.0) % Neutrophils # (1.3-7.7) k/uL ABG pH (7.35-7.45) ABG pCO2 (35-45) mmHg ABG pO2 (83-108) mmHg ABG Total CO2 (19-24) mmol/L ABG O2 Saturation (94-97) % Sodium (137-145) mmol/L BUN (9-20) mg/dL Glucose (74-99) mg/dL POC Glucose (mg/dL) 153 H 141 H 239 H (70-110) mg/dL Calcium (8.4-10.2) mg/dL AST (17-59) U/L Total Protein (6.3-8.2) g/dL Albumin (3.5-5.0) g/dL Crossmatch 10/12/24 10/12/24 Range/Units 14:04 15:08 WBC (3.8-10.6) k/uL RBC (4.30-5.90) m/uL Hgb (13.0-17.5) gm/dL Hct (39.0-53.0) % Neutrophils # (1.3-7.7) k/uL ABG pH (7.35-7.45) ABG pCO2 (35-45) mmHg ABG pO2 (83-108) mmHg ABG Total CO2 (19-24) mmol/L ABG O2 Saturation (94-97) % Sodium (137-145) mmol/L BUN (9-20) mg/dL Glucose (74-99) mg/dL POC Glucose (mg/dL) 239 H 232 H (70-110) mg/dL Calcium (8.4-10.2) mg/dL AST (17-59) U/L Total Protein (6.3-8.2) g/dL Albumin (3.5-5.0) g/dL Crossmatch Microbiology - Last 24 Hours (Table) 10/10/24 18:53 Nasal Screen MRSA/MSSA - Final Nasal Swab
[2024-10-12 16:09] LABS: Glucose,Whole Blood 204 mg/dL (70-110)
[2024-10-12 17:03] LABS: Glucose,Whole Blood 204 mg/dL (70-110)
--- NOTE | 2024-10-12 17:25 | P.CONS ---
History of Present Illness - Reason for Consult Consult date: 10/12/24 Medical management Requesting physician: Fadi Fink - Chief Complaint MVD, status post CABG - History of Present Illness On 10/11/2024 patient was already off the floor for CABG procedure.Patient diagnosed the day prior with NSTEMI with troponin 4000, abnormal EKG at [facility]. Underwent cardiac catheterization reporting significant multi-vessel disease, recommending CABG and patient was transferred to [facility] yesterday. Patient has a past medical history significant for noncompliant diabetes mellitus, hemoglobin A1c 7.2 in June 2024. PCPs office reports despite strong encouragement, patient declined medical management. Patient also presents with nicotine dependence, 1 pack/day, marijuana Gummies every night, obesity with a BMI of 33, hypertension, hyperlipidemia, osteoarthritis, hypothyroidism, laminectomy, chronic back pain and multiple other medical issues. 10/12/2024 status post urgent CABG x 5 with sequential VERGARA to the first diagonal LAD, sequential LAD radial artery graft to the second and third obtuse marginal branches, saphenous vein graft to the posterior descending. Occlusion of the left atrial appendage with 35 mm AtriCure clip. Tolerated procedure well. Extubated last night, maintaining O2 sats in the 90s on 5 L nasal cannula. Chest x-ray pending. currently on nitroglycerin and insulin drips. Blood sugars 100s to low 200s .sinus tachycardia, heart rates in the 1 teens to 120s. C.O/C.I. 8.3/3.3. Renal function stable. reports generalized soreness and chronic back pain. Review of Systems ROS Statement: Those systems with pertinent positive or pertinent negative responses have been documented in the HPI. ROS Other: All systems not noted in ROS Statement are negative. Past Medical History Past Medical History: Coronary Artery Disease (CAD), Diabetes Mellitus (Not treated), Hyperlipidemia, Hypertension, Myocardial Infarction (SD), Osteoarthritis (OA), Thyroid Disorder Additional Past Medical History / Comment(s): CHRONIC BACK PAIN, MIGRAINE HEADA MICHELL ,SOME TROUBLE SWALLOWING History of Any Multi-Drug Resistant Organisms: None Reported Past Surgical History: Back Surgery, Cholecystectomy, Orthopedic Surgery Additional Past Surgical History / Comment(s): RT KNEE ARTHROSCOPY Past Anesthesia/Blood Transfusion Reactions: No Reported Reaction Past Psychological History: No Psychological Hx Reported Smoking Status: Current every day smoker Past Alcohol Use History: Rare Additional Past Alcohol Use History / Comment(s): STARTED SMOKING IN 25 SMOKES 5-10 CIGARETTES A DAY Past Drug Use History: Marijuana Additional Drug Use History / Comment(s): OCCASIONAL USE - Past Family History Mother Family Medical History: No Reported History Father Family Medical History: Coronary Artery Disease (CAD) Brother(s) Family Medical History: Coronary Artery Disease (CAD), Myocardial Infarction (SD) Medications and Allergies Home Medications Medication Instructions Recorded Confirmed Type Meloxicam [Mobic] 15 mg PO DAILY PRN 10/10/24 10/10/24 History Allergies Allergy/AdvReac Type Severity Reaction Status Date / Time Penicillins Allergy Anaphylaxis Verified 10/10/24 19:38 pregabalin [From Lyrica] Allergy Dyspnea Verified 10/10/24 19:38 codeine AdvReac Nausea & Verified 10/10/24 19:38 Vomiting Physical Exam Vitals: Vital Signs Temp Pulse Resp BP Pulse Ox FiO2 10/12/24 17:00 101 H 23 116/61 92 L 10/12/24 16:31 104 H 10/12/24 16:30 103 H 26 H 120/67 96 10/12/24 16:23 107 H 10/12/24 16:00 105 H 20 123/72 94 L 10/12/24 15:30 101 H 20 114/67 93 L 10/12/24 15:00 100 21 116/68 95 10/12/24 14:30 100 20 115/72 94 L 10/12/24 14:00 101 H 18 123/72 94 L 10/12/24 13:30 103 H 13 96 10/12/24 13:00 106 H 21 133/72 100 10/12/24 12:55 105 H 10/12/24 12:46 102 H 10/12/24 12:30 111 H 12 137/79 88 L 10/12/24 12:00 110 H 21 137/79 97 10/12/24 11:30 106 H 20 123/72 96 10/12/24 11:00 112 H 33 H 124/79 93 L 10/12/24 10:30 109 H 29 H 106/82 94 L 10/12/24 10:00 114 H 27 H 115/79 90 L 10/12/24 09:30 115 H 17 114/76 94 L 10/12/24 09:12 114 H 01/08/25 09:01 94 L 10/12/24 09:00 118 H 18 111/74 92 L 10/12/24 08:56 118 H 10/12/24 08:30 123 H 19 111/74 93 L 10/12/24 08:00 99.7 F H 125 H 21 111/74 94 L 10/12/24 07:30 129 H 10 L 119/80 93 L 10/12/24 07:00 124 H 26 H 119/80 10/12/24 06:30 131 H 53 H 10/12/24 06:00 129 H 19 119/80 93 L 10/12/24 05:30 121 H 27 H 96 10/12/24 05:00 117 H 11 L 119/80 95 10/12/24 04:30 120 H 18 95 10/12/24 04:00 100.0 F H 118 H 20 119/80 95 10/12/24 03:30 118 H 21 105/70 96 10/12/24 03:00 99.9 F H 115 H 19 96 10/12/24 02:30 112 H 19 105/70 97 10/12/24 02:00 112 H 25 H 97 10/12/24 01:45 117 H 21 96 10/12/24 01:30 116 H 22 96 10/12/24 01:15 117 H 37 H 96 10/12/24 01:00 99.8 F H 118 H 21 96 10/12/24 00:45 117 H 17 96 10/12/24 00:30 121 H 17 96 10/12/24 00:15 124 H 22 95 10/12/24 00:01 122 H 21 96 10/12/24 00:00 100.4 F H 124 H 20 105/70 96 10/11/24 23:45 121 H 20 105/70 98 10/11/24 23:30 124 H 21 105/70 96 10/11/24 23:15 124 H 26 H 105/70 96 10/11/24 23:00 124 H 25 H 96 10/11/24 22:45 124 H 25 H 96 10/11/24 22:30 125 H 27 H 95 10/11/24 22:15 125 H 23 96 10/11/24 22:00 123 H 20 95 10/11/24 21:45 124 H 24 96 10/11/24 21:30 123 H 23 96 10/11/24 21:15 122 H 21 96 10/11/24 21:00 123 H 25 H 95 10/11/24 20:48 122 H 10/11/24 20:45 121 H 24 99 10/11/24 20:36 120 H 10/11/24 20:30 120 H 27 H 105/70 97 10/11/24 20:15 121 H 24 96 10/11/24 20:00 100.5 F H 121 H 24 105/70 96 10/11/24 19:45 121 H 21 105/70 96 10/11/24 19:30 121 H 21 105/70 96 10/11/24 19:15 120 H 24 105/70 95 10/11/24 19:00 118 H 27 H 95 10/11/24 18:45 120 H 33 H 95 10/11/24 18:30 135 H 18 95 10/11/24 18:15 112 H 22 95 10/11/24 18:00 110 H 27 H 96 10/11/24 17:45 112 H 22 97 10/11/24 17:30 108 H 22 96 10/11/24 17:16 50 10/11/24 17:15 111 H 22 96 60 Intake and Output 10/12/24 10/12/24 10/12/24 06:59 14:59 22:59 Intake Total 437.939 566.611 77.285 Output Total 607 331 255 Balance -169.061 235.611 -177.715 Intake: IV 397 520 46 Albumin Human 5% 250 ml 250 In Empty Bag 1 bag @ 250 mls/hr IVPB Q1HR PRN Rx#: [id number] Lines 27 30 6 Sodium Chloride 0.9% 1, 370 240 40 000 ml @ 20 mls/hr IV . Q24H ERASMO Rx#:[id number] Intake, IV Titration 40.939 46.611 31.285 Amount Insulin Regular 100 unit 40.939 46.611 31.285 In Sodium Chloride 0.9% 100 ml @ Per Protocol IV .Q0M ERASMO Rx#:[id number] Output: Chest Tube Drainage 72 94 20 Left Pleural - 36f 2 4 Mediastinal 32f 70 90 20 Drainage 35 30 Left Wrist 10 Right Calf 25 30 Urine 500 207 235 Other: Voiding Method Indwelling Catheter Indwelling Catheter Indwelling Catheter Weight 126.9 kg ABP, PAP, CO, CI - Last 8 Hours Pulmonary Artery Pressure 30/14 Cardiac Output 8.3 Cardiac Index 3.3 PHYSICAL EXAM: VITAL SIGNS: [Reviewed] GENERAL: Alert and oriented x 3, sitting up in chair, no acute distress HEENT: Normocephalic ,conjunctivae normal. eyes normal. MMM. NECK: Supple, no JVD. CARDIOVASCULAR: S1, S2 regular. Tachycardic. No murmur RESPIRATION: Unlabored, equal air entry ,breath sounds diminished in the bases. Chest tubes present. ABDOMEN: Soft, nondistended, nontender . No guarding. Positive bowel sounds LEGS: no edema. no swelling NERVOUS SYSTEM: Cranial N 2-12 grossly normal.No focal deficits. Skin: Warm and dry, no rash Results CBC & Chem 7: 10/12/24 05:35 10/12/24 05:25 Labs: Abnormal Lab Results - Last 24 Hours (Table) 10/11/24 10/11/24 10/11/24 Range/Units 17:08 18:13 18:25 WBC 17.7 H (3.8-10.6) k/uL RBC 4.11 L (4.30-5.90) m/uL Hgb (13.0-17.5) gm/dL Hct 38.5 L (39.0-53.0) % Neutrophils # 14.6 H (1.3-7.7) k/uL Sodium (137-145) mmol/L BUN (9-20) mg/dL Glucose (74-99) mg/dL POC Glucose (mg/dL) 173 H 173 H (70-110) mg/dL AST (17-59) U/L Total Protein (6.3-8.2) g/dL 10/11/24 10/11/24 10/11/24 Range/Units 19:04 20:06 21:02 WBC (3.8-10.6) k/uL RBC (4.30-5.90) m/uL Hgb (13.0-17.5) gm/dL Hct (39.0-53.0) % Neutrophils # (1.3-7.7) k/uL Sodium (137-145) mmol/L BUN (9-20) mg/dL Glucose (74-99) mg/dL POC Glucose (mg/dL) 165 H 138 H 132 H (70-110) mg/dL AST (17-59) U/L Total Protein (6.3-8.2) g/dL 10/11/24 10/11/24 10/11/24 Range/Units 21:28 21:28 22:00 WBC 15.6 H (3.8-10.6) k/uL RBC 3.99 L (4.30-5.90) m/uL Hgb 12.7 L (13.0-17.5) gm/dL Hct 37.7 L (39.0-53.0) % Neutrophils # 13.6 H (1.3-7.7) k/uL Sodium 135 L (137-145) mmol/L BUN 7 L (9-20) mg/dL Glucose 130 H (74-99) mg/dL POC Glucose (mg/dL) 124 H (70-110) mg/dL AST 66 H (17-59) U/L Total Protein 5.8 L (6.3-8.2) g/dL 10/11/24 10/12/24 10/12/24 Range/Units 23:02 00:03 01:03 WBC (3.8-10.6) k/uL RBC (4.30-5.90) m/uL Hgb (13.0-17.5) gm/dL Hct (39.0-53.0) % Neutrophils # (1.3-7.7) k/uL Sodium (137-145) mmol/L BUN (9-20) mg/dL Glucose (74-99) mg/dL POC Glucose (mg/dL) 124 H 120 H 114 H (70-110) mg/dL AST (17-59) U/L Total Protein (6.3-8.2) g/dL 10/12/24 10/12/24 10/12/24 Range/Units 02:01 03:08 04:15 WBC (3.8-10.6) k/uL RBC (4.30-5.90) m/uL Hgb (13.0-17.5) gm/dL Hct (39.0-53.0) % Neutrophils # (1.3-7.7) k/uL Sodium (137-145) mmol/L BUN (9-20) mg/dL Glucose (74-99) mg/dL POC Glucose (mg/dL) 139 H 127 H 121 H (70-110) mg/dL AST (17-59) U/L Total Protein (6.3-8.2) g/dL 10/12/24 10/12/24 10/12/24 Range/Units 05:25 05:27 05:35 WBC 15.7 H (3.8-10.6) k/uL RBC 4.12 L (4.30-5.90) m/uL Hgb 12.7 L (13.0-17.5) gm/dL Hct (39.0-53.0) % Neutrophils # 11.5 H (1.3-7.7) k/uL Sodium 134 L (137-145) mmol/L BUN 6 L (9-20) mg/dL Glucose 109 H (74-99) mg/dL POC Glucose (mg/dL) 119 H (70-110) mg/dL AST (17-59) U/L Total Protein 5.7 L (6.3-8.2) g/dL 10/12/24 10/12/24 10/12/24 Range/Units 06:41 08:38 09:46 WBC (3.8-10.6) k/uL RBC (4.30-5.90) m/uL Hgb (13.0-17.5) gm/dL Hct (39.0-53.0) % Neutrophils # (1.3-7.7) k/uL Sodium (137-145) mmol/L BUN (9-20) mg/dL Glucose (74-99) mg/dL POC Glucose (mg/dL) 123 H 209 H 187 H (70-110) mg/dL AST (17-59) U/L Total Protein (6.3-8.2) g/dL 10/12/24 10/12/24 10/12/24 Range/Units 11:11 12:12 13:11 WBC (3.8-10.6) k/uL RBC (4.30-5.90) m/uL Hgb (13.0-17.5) gm/dL Hct (39.0-53.0) % Neutrophils # (1.3-7.7) k/uL Sodium (137-145) mmol/L BUN (9-20) mg/dL Glucose (74-99) mg/dL POC Glucose (mg/dL) 153 H 141 H 239 H (70-110) mg/dL AST (17-59) U/L Total Protein (6.3-8.2) g/dL 10/12/24 10/12/24 10/12/24 Range/Units 14:04 15:08 16:08 WBC (3.8-10.6) k/uL RBC (4.30-5.90) m/uL Hgb (13.0-17.5) gm/dL Hct (39.0-53.0) % Neutrophils # (1.3-7.7) k/uL Sodium (137-145) mmol/L BUN (9-20) mg/dL Glucose (74-99) mg/dL POC Glucose (mg/dL) 239 H 232 H 204 H (70-110) mg/dL AST (17-59) U/L Total Protein (6.3-8.2) g/dL Microbiology - Last 24 Hours (Table) 10/10/24 18:53 Nasal Screen MRSA/MSSA - Final Nasal Swab Assessment and Plan Assessment: Multivessel CAD, status post urgent CABG x 5 NSTEMI Family history of CAD Ischemic cardiomyopathy, EF 30 to 35% Sinus tachycardia Diabetes mellitus type 2, history of noncompliance, A1c 9.4 Hypertension Hyperlipidemia Nicotine dependence Marijuana use Chronic back pain, history of laminectomy Plan: Continue on current medication regimen ,monitoring and symptomatic treatment. Aggressive pulmonary toileting with incentive spirometer reinforced. Tight blood sugar control, currently on insulin drip. Maintained on aspirin, Plavix, beta-ludivina. Smoking cessation reinforced. The impression and plan of care has been dictated as directed. : I performed a history and examination of this patient, discussed the same with the dictator. I agree with the dictator's note ,documented as a scribe. Any additional findings or plans will be noted.
[2024-10-12 18:13] LABS: Glucose,Whole Blood 200 mg/dL (70-110)
[2024-10-12 19:17] LABS: Glucose,Whole Blood 204 mg/dL (70-110)
[2024-10-12 20:48] LABS: Glucose,Whole Blood 172 mg/dL (70-110)
[2024-10-12] MEDS: SENNOSIDES-DOCUSATE SODIUM 1 EACH TAB PO SCH (20:52)
[2024-10-12 22:25] LABS: Glucose,Whole Blood 163 mg/dL (70-110)
[2024-10-12 23:59] LABS: Glucose,Whole Blood 176 mg/dL (70-110)
[2024-10-13 03:20] LABS: Glucose,Whole Blood 81 mg/dL (70-110)
[2024-10-13 04:57] LABS: Glucose,Whole Blood 144 mg/dL (70-110)
[2024-10-13 05:29] LABS: Basophils % (A) 0 %; Eosinophils # (A) 0.2 k/uL (0-0.7); Eosinophils % (A) 1 %; HCT 36.9 % (39.0-53.0); HGB 12.1 gm/dL (13.0-17.5); Lymphocytes # (A) 1.2 k/uL (1.0-4.8); Lymphocytes % (A) 9 %; MCH 30.6 pg (25.0-35.0); MCHC 32.7 g/dL (31.0-37.0); MCV 93.9 fL (80.0-100.0); Mean Platelet Volume 8.2; Monocytes # (A) 0.4 k/uL (0-1.0); Monocytes % (A) 3 %; Neutrophils # (A) 11.1 k/uL (1.3-7.7); Neutrophils % (A) 85 %; Platelet Count 168 k/uL (150-450); RBC 3.93 m/uL (4.30-5.90); RDW 12.9 % (11.5-15.5); WBC 12.9 k/uL (3.8-10.6)
[2024-10-13 06:05] LABS: Ionized Calcium 4.8 mg/dL (4.5-5.3)
--- NOTE | 2024-10-13 06:09 | P.PN ---
Subjective HISTORY OF PRESENTING ILLNESS This is a pleasant 49-year-old with past medical history significant for hypertension, hyperlipidemia is, diabetes mellitus type 2, tobacco abuse, spinal stenosis, family history of CAD and CAD. He presented to [facility] with heartburn and chest discomfort or last 2-3 weeks and was found to have non- STEMI with troponin up to 4000. He was chest pain-free and eventually underwent diagnostic heart catheterization which showed multivessel CAD with RCA 100% occluded, LAD 80-90% stenosis at the level of a diagonal branch and intermediate disease of the proximal circumflex as well as on 2 branch. Echocardiogram showed EF 40-45% with trace mitral regurgitation. He was transferred to [facility] for further assessment and surgical opinion. Repeat echo showed EF 30- 35% with mid to basal inferior wall hypokinesia. He underwent CABG x 5 with sequential VERGARA to first diagonal and LAD, left radial to OM 2 and 013, SVG to PDA and occlusion of the left atrial appendage with a 35mm AtriCure Clip. He remains on ventilator after surgery with currently 100% FiO2 however is being weaned. 10/12/24 Patient seen and examined. Patient extubated last night. Heart rates have been in the 100-120 range and therefore was placed on Cardizem as well as the metoprolol. Off of any vasopressors. On 5 L nasal cannula with oxygen saturations in the 90s. 10/13 patient seen and examined. Denies any chest pain or pressure other than his pain with deep inspiration from his chest tubes. Minimal output of the chest tubes 50 mL overnight and 10 from the right and left chest tubes. He does have an appetite. No significant shortness breath. Remains tachycardic with heart rates 110s to 130s. PHYSICAL EXAMINATION Vital signs reviewed. CONSTITUTIONAL: No apparent distress, awake and alert HEENT: Head is normocephalic. Pupils are equal, round. Sclerae anicteric. Mucous membranes of the mouth are moist. No JVD. No carotid bruit. CHEST EXAMINATION: Lungs are clear to auscultation. No chest wall tenderness is noted on palpation or with deep breathing. HEART EXAMINATION: Regular rate and rhythm. S1, S2 heard. No murmurs, gallops or rub. ABDOMEN: Soft, nontender. Positive bowel sounds. EXTREMITIES: 2+ peripheral pulses, no lower extremity edema and no calf tenderness. NEUROLOGIC EXAMINATION: Patient is alert and awake ASSESSMENT Non-STEMI CAD status post CABG 5 10/11/2024 Hypertension Hyperlipidemia Diabetes mellitus type 2 Ischemic cardiomyopathy EF 30-35% Tobacco abuse Family history of CAD PLAN Continue aspirin and Plavix Amiodarone for A. fib prevention Continue metoprolol as tolerated Wean sedation, ventilator as able Optimize heart failure regimen as blood pressure allows. Increase metoprolol from 25 3 times a day up to 53 times a day monitor response. Blood pressure tolerating however likely wait another day to add afterload reduction. Further recommendations to follow. Objective - Vital Signs Vital signs: Vital Signs Temp 98.7 F 10/13/24 00:00 Pulse 123 H 10/13/24 05:00 Resp 34 H 10/13/24 05:00 BP 123/75 10/13/24 05:00 Pulse Ox 90 L 10/13/24 05:00 FiO2 50 10/11/24 17:16 Intake & Output 10/12/24 10/12/24 10/13/24 06:59 18:59 06:59 Intake Total 893.083 3070.875 1028.155 Output Total 900 781 5687 Balance -235.543 227.875 -396.845 Weight 126.9 kg Intake: IV 634 612 223 Albumin Human 5% 250 ml 250 In Empty Bag 1 bag @ 250 mls/hr IVPB Q1HR PRN Rx#: [id number] CO/CI 60 Lines 54 42 3 Sodium Chloride 0.9% 1, 520 320 220 000 ml @ 20 mls/hr IV . Q24H ERASMO Rx#:[id number] Intake, IV Titration 76.457 106.875 135.155 Amount Insulin Regular 100 unit 76.457 106.875 135.155 In Sodium Chloride 0.9% 100 ml @ Per Protocol IV .Q0M ERASMO Rx#:[id number] Oral 420 670 Output: Chest Tube Drainage 196 114 100 Left Pleural - 36f 36 4 0 Mediastinal 32f 160 110 100 Drainage 35 30 50 Left Wrist 10 20 Right Calf 25 30 30 Urine 436 257 4384 Other: Voiding Method Indwelling Catheter Indwelling Catheter Indwelling Catheter ABP, PAP, CO, CI - Last Documented Arterial Blood Pressure 87/86 Pulmonary Artery Pressure 30/14 Cardiac Output 8.3 Cardiac Index 3.3 - Labs CBC & Chem 7: 10/13/24 05:16 10/12/24 05:25 Labs: Abnormal Lab Results - Last 24 Hours (Table) 10/11/24 10/12/24 10/12/24 Range/Units 06:44 05:25 05:35 WBC 15.7 H (3.8-10.6) k/uL RBC 4.12 L (4.30-5.90) m/uL Hgb 12.7 L (13.0-17.5) gm/dL Hct (39.0-53.0) % Neutrophils # 11.5 H (1.3-7.7) k/uL Sodium 134 L (137-145) mmol/L BUN 6 L (9-20) mg/dL Glucose 109 H (74-99) mg/dL POC Glucose (mg/dL) (70-110) mg/dL Total Protein 5.7 L (6.3-8.2) g/dL Crossmatch See Detail 10/12/24 10/12/24 10/12/24 Range/Units 06:41 08:38 09:46 WBC (3.8-10.6) k/uL RBC (4.30-5.90) m/uL Hgb (13.0-17.5) gm/dL Hct (39.0-53.0) % Neutrophils # (1.3-7.7) k/uL Sodium (137-145) mmol/L BUN (9-20) mg/dL Glucose (74-99) mg/dL POC Glucose (mg/dL) 123 H 209 H 187 H (70-110) mg/dL Total Protein (6.3-8.2) g/dL Crossmatch 10/12/24 10/12/24 10/12/24 Range/Units 11:11 12:12 13:11 WBC (3.8-10.6) k/uL RBC (4.30-5.90) m/uL Hgb (13.0-17.5) gm/dL Hct (39.0-53.0) % Neutrophils # (1.3-7.7) k/uL Sodium (137-145) mmol/L BUN (9-20) mg/dL Glucose (74-99) mg/dL POC Glucose (mg/dL) 153 H 141 H 239 H (70-110) mg/dL Total Protein (6.3-8.2) g/dL Crossmatch 10/12/24 10/12/24 10/12/24 Range/Units 14:04 15:08 16:08 WBC (3.8-10.6) k/uL RBC (4.30-5.90) m/uL Hgb (13.0-17.5) gm/dL Hct (39.0-53.0) % Neutrophils # (1.3-7.7) k/uL Sodium (137-145) mmol/L BUN (9-20) mg/dL Glucose (74-99) mg/dL POC Glucose (mg/dL) 239 H 232 H 204 H (70-110) mg/dL Total Protein (6.3-8.2) g/dL Crossmatch 10/12/24 10/12/24 10/12/24 Range/Units 17:02 18:12 19:15 WBC (3.8-10.6) k/uL RBC (4.30-5.90) m/uL Hgb (13.0-17.5) gm/dL Hct (39.0-53.0) % Neutrophils # (1.3-7.7) k/uL Sodium (137-145) mmol/L BUN (9-20) mg/dL Glucose (74-99) mg/dL POC Glucose (mg/dL) 204 H 200 H 204 H (70-110) mg/dL Total Protein (6.3-8.2) g/dL Crossmatch 10/12/24 10/12/24 10/12/24 Range/Units 20:47 22:24 23:57 WBC (3.8-10.6) k/uL RBC (4.30-5.90) m/uL Hgb (13.0-17.5) gm/dL Hct (39.0-53.0) % Neutrophils # (1.3-7.7) k/uL Sodium (137-145) mmol/L BUN (9-20) mg/dL Glucose (74-99) mg/dL POC Glucose (mg/dL) 172 H 163 H 176 H (70-110) mg/dL Total Protein (6.3-8.2) g/dL Crossmatch 10/13/24 10/13/24 Range/Units 04:55 05:16 WBC 12.9 H (3.8-10.6) k/uL RBC 3.93 L (4.30-5.90) m/uL Hgb 12.1 L (13.0-17.5) gm/dL Hct 36.9 L (39.0-53.0) % Neutrophils # 11.1 H (1.3-7.7) k/uL Sodium (137-145) mmol/L BUN (9-20) mg/dL Glucose (74-99) mg/dL POC Glucose (mg/dL) 144 H (70-110) mg/dL Total Protein (6.3-8.2) g/dL Crossmatch Microbiology - Last 24 Hours (Table) 10/10/24 18:53 Nasal Screen MRSA/MSSA - Final Nasal Swab
[2024-10-13 06:18] LABS: ALT 15 U/L (4-49); AST 37 U/L (17-59); African American GFR (CKD) >90 (>60 ml/min/1.73 sqM); Albumin 3.5 g/dL (3.5-5.0); Alkaline Phosphatase 79 U/L (38-126); Anion Gap 8 mmol/L; Blood Urea Nitrogen 9 mg/dL (9-20); Calcium 8.5 mg/dL (8.4-10.2); Carbon Dioxide 23 mmol/L (22-30); Chloride 101 mmol/L (98-107); Glucose 152 mg/dL (74-99); Non-African American GFR(CKD) >90 (>60 ml/min/1.73 sqM); Potassium 3.8 mmol/L (3.5-5.1); Sodium 132 mmol/L (137-145); Total Bilirubin 0.8 mg/dL (0.2-1.3); Total Protein 5.6 g/dL (6.3-8.2)
[2024-10-13 06:48] LABS: Glucose,Whole Blood 182 mg/dL (70-110)
[2024-10-13] MEDS: PANTOPRAZOLE 40 MG TABLET PO SCH (06:56)
[2024-10-13] MEDS: POTASSIUM CHLORIDE ER 20 MEQ TAB.ER PO SCH (07:09)
[2024-10-13] MEDS: DILTIAZEM ORAL 60 MG TAB PO SCH (07:36)
[2024-10-13] MEDS: METOPROLOL TARTRATE 50 MG TAB PO SCH (07:36)
--- NOTE | 2024-10-13 07:38 | P.PN ---
Subjective Progress Note Date: 10/13/24 Principal diagnosis: Coronary artery disease, acute inferior wall myocardial infarction secondary to the RCA occlusion, unstable angina, ischemic cardiomyopathy. History of hyperte nsion, hyperlipidemia, untreated diabetes mellitus type 2 with uncontrolled hyperglycemia due to patient noncompliance, obesity, chronic ongoing tobacco dependence, daily marijuana use, osteoarthritis, and family history of premature coronary artery disease POD #2 urgent coronary artery bypass grafting x 5 with sequential VERGARA to first diagonal and LAD, sequential left radial artery graft to second and third obtuse marginal branches, saphenous vein graft to posterior descending coronary artery. Occlusion of the left atrial appendage with 35 mm AtriCure clip. Endoscopic harvest of the left radial artery and the right greater saphenous vein from mid calf to groin The patient was seen and examined this morning sitting up in recliner in the intensive care unit in no acute distress. Currently sinus tach with heart rate in the 120s, hemodynamically stable on no inotropes or pressors, remains on 2 L nasal cannula with oxygen saturation in the mid 90s, oxygen saturations did drop to 89 to 90% on room air. He is able to achieve 1250 to 1500 mL on his incentive spirometry. States his expected postsurgical pain is mostly controlled with current medication regimen, the patient does have chronic back pain. He has been ambulatory in the hallway with standby assistance and tolerating well. Right internal jugular cordis, mediastinal/left pleural chest tubes remain. No other new concerns. Objective - Vital Signs Vital signs: Vital Signs Temp 98.7 F 10/13/24 00:00 Pulse 137 H 10/13/24 07:00 Resp 32 H 10/13/24 07:00 BP 112/74 10/13/24 07:00 Pulse Ox 94 L 10/13/24 07:00 FiO2 50 10/11/24 17:16 Intake & Output 10/12/24 10/13/24 10/13/24 18:59 06:59 18:59 Intake Total 5921.711 7142.940 20 Output Total 911 1495 50 Balance 227.875 -418.060 -30 Weight 130.3 kg Intake: IV 612 243 20 Albumin Human 5% 250 ml 250 In Empty Bag 1 bag @ 250 mls/hr IVPB Q1HR PRN Rx#: [id number] Lines 42 3 Sodium Chloride 0.9% 1, 320 240 20 000 ml @ 20 mls/hr IV . Q24H ERASMO Rx#:[id number] Intake, IV Titration 106.875 163.940 Amount Insulin Regular 100 unit 106.875 163.940 In Sodium Chloride 0.9% 100 ml @ Per Protocol IV .Q0M ERASMO Rx#:[id number] Oral 420 670 Output: Chest Tube Drainage 114 110 Left Pleural - 36f 4 0 Mediastinal 32f 110 110 Drainage 30 50 Left Wrist 20 Right Calf 30 30 Urine 767 1335 50 Other: Voiding Method Indwelling Catheter Indwelling Catheter ABP, PAP, CO, CI - Last Documented Arterial Blood Pressure 87/86 Pulmonary Artery Pressure 30/14 Cardiac Output 8.3 Cardiac Index 3.3 - Exam CONSTITUTIONAL: Appears comfortable, cooperative, no acute distress RESPIRATORY: Lungs sounds diminished in the bases bilaterally. Respirations even, nonlabored. Currently on 2 L nasal cannula with oxygen saturation 94%. Able to achieve 2221-4493 mL on incentive spirometry. Strong cough. CARDIOVASCULAR: S1, S2 present. Tachycardic but regular rate and rhythm, sinus tach on telemetry. Sternum stable. Palpable peripheral pulses bilaterally. Trace generalized edema present. No calf pain or tenderness noted. Heart hugger, antiembolism stockings, SCDs present. GASTROINTESTINAL: Abdomen soft, nontender, nondistended. Active bowel sounds present 4 quadrants. Tolerating diet. Positive flatus GENITOURINARY: Zhang present draining clear, yellow urine. Output overnight 35-150 mL per hour, 2042 mL in the last 24 hours INTEGUMENTARY: Skin is warm and dry with evidence of good perfusion. Anterior chest incision well approximated and covered with dry intact dressing. Left radial artery harvest site as well as right lower extremity EVH site well approximated without redness, MADDY drains present with minimal drainage NEUROLOGIC: Cranial nerves II through XII intact MUSKULOSKELETAL: Able to move all extremities, strength equal bilaterally, gait normal PSYCHIATRIC: Alert and oriented to person place and time, appropriate affect, intact judgment and insight INVASIVE LINES AND TUBES: Mediastinal/left pleural chest tubes present and connected to wall suction, no air leaks present. Mediastinal tube with 80 mL serosanguineous drainage overnight, 200 mL in the last 24 hours. Left pleural chest tube with minimal output in the last 24 hours. Right internal jugular cordis present - Allied health notes Allied health notes reviewed: nursing - Labs CBC & Chem 7: 10/13/24 05:16 10/13/24 05:16 Labs: Abnormal Lab Results - Last 24 Hours (Table) 10/11/24 10/12/24 10/12/24 Range/Units 06:44 08:38 09:46 WBC (3.8-10.6) k/uL RBC (4.30-5.90) m/uL Hgb (13.0-17.5) gm/dL Hct (39.0-53.0) % Neutrophils # (1.3-7.7) k/uL Sodium (137-145) mmol/L Glucose (74-99) mg/dL POC Glucose (mg/dL) 209 H 187 H (70-110) mg/dL Total Protein (6.3-8.2) g/dL Crossmatch See Detail 10/12/24 10/12/24 10/12/24 Range/Units 11:11 12:12 13:11 WBC (3.8-10.6) k/uL RBC (4.30-5.90) m/uL Hgb (13.0-17.5) gm/dL Hct (39.0-53.0) % Neutrophils # (1.3-7.7) k/uL Sodium (137-145) mmol/L Glucose (74-99) mg/dL POC Glucose (mg/dL) 153 H 141 H 239 H (70-110) mg/dL Total Protein (6.3-8.2) g/dL Crossmatch 10/12/24 10/12/24 10/12/24 Range/Units 14:04 15:08 16:08 WBC (3.8-10.6) k/uL RBC (4.30-5.90) m/uL Hgb (13.0-17.5) gm/dL Hct (39.0-53.0) % Neutrophils # (1.3-7.7) k/uL Sodium (137-145) mmol/L Glucose (74-99) mg/dL POC Glucose (mg/dL) 239 H 232 H 204 H (70-110) mg/dL Total Protein (6.3-8.2) g/dL Crossmatch 10/12/24 10/12/24 10/12/24 Range/Units 17:02 18:12 19:15 WBC (3.8-10.6) k/uL RBC (4.30-5.90) m/uL Hgb (13.0-17.5) gm/dL Hct (39.0-53.0) % Neutrophils # (1.3-7.7) k/uL Sodium (137-145) mmol/L Glucose (74-99) mg/dL POC Glucose (mg/dL) 204 H 200 H 204 H (70-110) mg/dL Total Protein (6.3-8.2) g/dL Crossmatch 10/12/24 10/12/24 10/12/24 Range/Units 20:47 22:24 23:57 WBC (3.8-10.6) k/uL RBC (4.30-5.90) m/uL Hgb (13.0-17.5) gm/dL Hct (39.0-53.0) % Neutrophils # (1.3-7.7) k/uL Sodium (137-145) mmol/L Glucose (74-99) mg/dL POC Glucose (mg/dL) 172 H 163 H 176 H (70-110) mg/dL Total Protein (6.3-8.2) g/dL Crossmatch 10/13/24 10/13/24 10/13/24 Range/Units 04:55 05:16 05:16 WBC 12.9 H (3.8-10.6) k/uL RBC 3.93 L (4.30-5.90) m/uL Hgb 12.1 L (13.0-17.5) gm/dL Hct 36.9 L (39.0-53.0) % Neutrophils # 11.1 H (1.3-7.7) k/uL Sodium 132 L (137-145) mmol/L Glucose 152 H (74-99) mg/dL POC Glucose (mg/dL) 144 H (70-110) mg/dL Total Protein 5.6 L (6.3-8.2) g/dL Crossmatch 10/13/24 Range/Units 06:47 WBC (3.8-10.6) k/uL RBC (4.30-5.90) m/uL Hgb (13.0-17.5) gm/dL Hct (39.0-53.0) % Neutrophils # (1.3-7.7) k/uL Sodium (137-145) mmol/L Glucose (74-99) mg/dL POC Glucose (mg/dL) 182 H (70-110) mg/dL Total Protein (6.3-8.2) g/dL Crossmatch Microbiology - Last 24 Hours (Table) 10/10/24 18:53 Nasal Screen MRSA/MSSA - Final Nasal Swab - Imaging and Cardiology Chest x-ray: image reviewed Assessment and Plan Assessment: Coronary artery disease, acute inferior wall myocardial infarction secondary to the RCA occlusion, unstable angina, status post urgent 5 vessel off-pump CABG Ischemic cardiomyopathy, EF 30 to 35% History of hypertension Hyperlipidemia, cholesterol 163, LDL 82, triglycerides 274 Untreated diabetes mellitus type 2 with uncontrolled hyperglycemia due to patient noncompliance, hemoglobin A1c 9.4% Obesity Chronic ongoing tobacco dependence Daily marijuana use Osteoarthritis Family history of premature coronary artery disease Plan: Continue to maximize medical therapy with aspirin, statin, Plavix, beta-ludivina. Will increase beta-ludivina therapy as tolerated increased to 50 mg 3 times daily today Continue oral calcium channel ludivina for radial artery spasm prophylaxis, Cardizem increased to 60 mg 3 times daily today Will start ARB for afterload reduction when able to tolerate Wean oxygen as tolerated. Encourage incentive spirometry use 10 times every hour while awake. Bronchodilators per pulmonology Increase activity, ambulate as tolerated. PT/OT/cardiac rehab consulted Will monitor daily labs and x-rays. Electrolyte replacement per protocol GI/DVT prophylaxis Insulin management per internal medicine Pain control per current medication regimen Discontinue cordis, MADDY drains Will discontinue chest tubes today Discontinue Zhang catheter, may bladder scan and straight cath for greater than 300 mL residual Continue to monitor and record strict accurate intake and output Daily weights Smoking cessation counseling and education reinforced More recommendations to follow
--- NOTE | 2024-10-13 07:51 | XR ---
EXAMINATION TYPE: XR chest 1V portable DATE OF EXAM: 10/13/2024 5:19 AM COMPARISON: 10/12/2024 CLINICAL INDICATION: Male, 49 years old with history of Post Operative Cardiac Surgery, , FINDINGS: Median sternotomy wires and post-CABG clips. Interval removal of a right IJ [place] catheter. IJ sh eath remains in place as does the mediastinal drain and left chest tubes. Some external artifacts pro ject over the upper left lung. No appreciable pneumothorax. Diffuse interstitial densities along with small left effusion and patchy retrocardiac and left basilar opacity persists. IMPRESSION: Post-CABG changes with similar pulmonary vascular congestion. Similar small left effusion with adjace nt atelectasis and/or consolidation. [facility], , 10/13/2024 7:48 AM
[2024-10-13 08:01] LABS: Glucose,Whole Blood 207 mg/dL (70-110)
[2024-10-13] MEDS ORDERED: DEXTROSE 50% SYRINGE 50 ML IVP PRN ×2 (08:24)
[2024-10-13 08:40] LABS: Glucose,Whole Blood 171 mg/dL (70-110)
[2024-10-13] MEDS: INSULIN ASPART (NovoLOG) 100 UNIT/ML VIAL SQ SCH ×2 (08:42)
[2024-10-13] MEDS: INSULIN DETEMIR (LEVEMIR) 100 UNIT/ML SYR SQ SCH (08:53)
[2024-10-13 10:15] VITALS: BMI 34.9
[2024-10-13 11:25] LABS: Glucose,Whole Blood 174 mg/dL (70-110)
--- NOTE | 2024-10-13 14:02 | P.PN ---
Subjective Progress Note Date: 10/13/24 On 10/11/2024 patient was already off the floor for CABG procedure.Patient diagnosed the day prior with NSTEMI with troponin 4000, abnormal EKG at [facility]. Underwent cardiac catheterization reporting significant multi-vessel disease, recommending CABG and patient was transferred to [facility] yesterday. Patient has a past medical history significant for noncompliant diabetes mellitus, hemoglobin A1c 7.2 in June 2024. PCPs office reports despite strong encouragement, patient declined medical management. Patient also presents with nicotine dependence, 1 pack/day, marijuana Gummies every night, obesity with a BMI of 33, hypertension, hyperlipidemia, osteoarthritis, hypothyroidism, laminectomy, chronic back pain and multiple other medical issues. 10/12/2024 status post urgent CABG x 5 with sequential VERGARA to the first diagonal LAD, sequential LAD radial artery graft to the second and third obtuse marginal branches, saphenous vein graft to the posterior descending. Occlusion of the left atrial appendage with 35 mm AtriCure clip. Tolerated procedure well. Extubated last night, maintaining O2 sats in the 90s on 5 L nasal cannula. Chest x-ray pending. currently on nitroglycerin and insulin drips. Blood sugars 100s to low 200s .sinus tachycardia, heart rates in the 1 teens to 120s. C.O/C.I. 8.3/3.3. Renal function stable. reports generalized soreness and chronic back pain. 10/13/2024 sinus tachycardia, beta-ludivina increased. Blood sugars ranging from 81 to low 200s, transitioning off insulin drip. Ambulated twice in hallway, tolerated exertion well. Pain better controlled, post chest tubes being discontinued. Chronic back pain. Incentive spirometer up to 1200. Objective - Vital Signs Vital signs: Vital Signs Temp 99 F 10/13/24 12:00 Pulse 113 H 10/13/24 13:18 Resp 23 10/13/24 12:00 BP 123/68 10/13/24 12:00 Pulse Ox 93 L 10/13/24 12:00 FiO2 50 10/11/24 17:16 Intake & Output 10/12/24 10/13/24 10/13/24 18:59 06:59 18:59 Intake Total 4913.365 4608.940 426.523 Output Total 911 1495 195 Balance 227.875 -418.060 231.523 Weight 130.3 kg 130.3 kg Intake: IV 612 243 60 Albumin Human 5% 250 ml 250 In Empty Bag 1 bag @ 250 mls/hr IVPB Q1HR PRN Rx#: [id number] Lines 42 3 Sodium Chloride 0.9% 1, 320 240 60 000 ml @ 20 mls/hr IV . Q24H ERASMO Rx#:[id number] Intake, IV Titration 106.875 163.940 6.523 Amount Insulin Regular 100 unit 106.875 163.940 6.523 In Sodium Chloride 0.9% 100 ml @ Per Protocol IV .Q0M ERASMO Rx#:[id number] Oral 420 670 360 Output: Chest Tube Drainage 114 110 0 Left Pleural - 36f 4 0 0 Mediastinal 32f 110 110 0 Drainage 30 50 Left Wrist 20 Right Calf 30 30 Urine 767 1335 195 Other: Voiding Method Indwelling Catheter Indwelling Catheter Indwelling Catheter ABP, PAP, CO, CI - Last Documented Arterial Blood Pressure 87/86 Pulmonary Artery Pressure 30/14 Cardiac Output 8.3 Cardiac Index 3.3 - Exam PHYSICAL EXAM: VITAL SIGNS: [Reviewed] GENERAL: Alert and oriented x 3, sitting up in chair, no acute distress HEENT: Normocephalic ,conjunctivae normal. eyes normal. MMM. NECK: Supple, no JVD. CARDIOVASCULAR: S1, S2, tachycardic. No murmur RESPIRATION: Unlabored, equal air entry ,breath sounds diminished in the bases. ABDOMEN: Soft, nondistended, nontender . No guarding. Positive bowel sounds LEGS: no edema. no swelling NERVOUS SYSTEM: Cranial N 2-12 grossly normal.No focal deficits. Skin: Warm and dry, no rash - Labs CBC & Chem 7: 10/13/24 05:16 10/13/24 05:16 Labs: Abnormal Lab Results - Last 24 Hours (Table) 10/11/24 10/12/24 10/12/24 Range/Units 06:44 14:04 15:08 WBC (3.8-10.6) k/uL RBC (4.30-5.90) m/uL Hgb (13.0-17.5) gm/dL Hct (39.0-53.0) % Neutrophils # (1.3-7.7) k/uL Sodium (137-145) mmol/L Glucose (74-99) mg/dL POC Glucose (mg/dL) 239 H 232 H (70-110) mg/dL Total Protein (6.3-8.2) g/dL Crossmatch See Detail 10/12/24 10/12/24 10/12/24 Range/Units 16:08 17:02 18:12 WBC (3.8-10.6) k/uL RBC (4.30-5.90) m/uL Hgb (13.0-17.5) gm/dL Hct (39.0-53.0) % Neutrophils # (1.3-7.7) k/uL Sodium (137-145) mmol/L Glucose (74-99) mg/dL POC Glucose (mg/dL) 204 H 204 H 200 H (70-110) mg/dL Total Protein (6.3-8.2) g/dL Crossmatch 10/12/24 10/12/24 10/12/24 Range/Units 19:15 20:47 22:24 WBC (3.8-10.6) k/uL RBC (4.30-5.90) m/uL Hgb (13.0-17.5) gm/dL Hct (39.0-53.0) % Neutrophils # (1.3-7.7) k/uL Sodium (137-145) mmol/L Glucose (74-99) mg/dL POC Glucose (mg/dL) 204 H 172 H 163 H (70-110) mg/dL Total Protein (6.3-8.2) g/dL Crossmatch 10/12/24 10/13/24 10/13/24 Range/Units 23:57 04:55 05:16 WBC 12.9 H (3.8-10.6) k/uL RBC 3.93 L (4.30-5.90) m/uL Hgb 12.1 L (13.0-17.5) gm/dL Hct 36.9 L (39.0-53.0) % Neutrophils # 11.1 H (1.3-7.7) k/uL Sodium (137-145) mmol/L Glucose (74-99) mg/dL POC Glucose (mg/dL) 176 H 144 H (70-110) mg/dL Total Protein (6.3-8.2) g/dL Crossmatch 10/13/24 10/13/24 10/13/24 Range/Units 05:16 06:47 07:59 WBC (3.8-10.6) k/uL RBC (4.30-5.90) m/uL Hgb (13.0-17.5) gm/dL Hct (39.0-53.0) % Neutrophils # (1.3-7.7) k/uL Sodium 132 L (137-145) mmol/L Glucose 152 H (74-99) mg/dL POC Glucose (mg/dL) 182 H 207 H (70-110) mg/dL Total Protein 5.6 L (6.3-8.2) g/dL Crossmatch 10/13/24 10/13/24 Range/Units 08:38 11:24 WBC (3.8-10.6) k/uL RBC (4.30-5.90) m/uL Hgb (13.0-17.5) gm/dL Hct (39.0-53.0) % Neutrophils # (1.3-7.7) k/uL Sodium (137-145) mmol/L Glucose (74-99) mg/dL POC Glucose (mg/dL) 171 H 174 H (70-110) mg/dL Total Protein (6.3-8.2) g/dL Crossmatch Microbiology - Last 24 Hours (Table) 10/10/24 18:53 Nasal Screen MRSA/MSSA - Final Nasal Swab Assessment and Plan Assessment: Multivessel CAD, status post urgent CABG x 5 NSTEMI Family history of CAD Ischemic cardiomyopathy, EF 30 to 35% Sinus tachycardia Diabetes mellitus type 2, history of noncompliance, A1c 9.4 Hypertension Hyperlipidemia Nicotine dependence Marijuana use Chronic back pain, history of laminectomy Plan: Continue on current medication regimen ,monitoring and symptomatic treatment. Heart failure regimen ,declined. maintain aggressive pulmonary toileting with incentive spirometer reinforced. Close monitoring of Accu-Cheks, insulin drip transitioned to NovoLog sliding scale, Premeal insulin and Levemir insulin. Smoking cessation reinforced. The impression and plan of care has been dictated as directed. : I performed a history and examination of this patient, discussed the same with the dictator. I agree with the dictator's note ,documented as a scribe. Any additional findings or plans will be noted.
--- NOTE | 2024-10-13 14:13 | P.PN ---
Subjective Progress Note Date: 10/13/24 49-year-old male patient was being seen in the intensive care is following earl nary artery bypass surgery. The patient underwent an urgent four-vessel bypass surgery including VERGARA to LAD and first diagonal and sequential left radial artery graft to second and third obtuse marginal branch and saphenous vein graft to PDA. The patient has multivessel coronary disease and the patient is status post inferior wall myocardial infarction secondary to RCA occlusion. He initially presented to us with heartburn and he ruled in for inferior wall myocardial infarction. Cardiac catheterization was done and subsequent and the patient was taken to the operating room for urgent revascularization. At the time of my evaluation, the patient was intubated on the mechanical ventilator. The patient was sedated with propofol running at 30 mcg/kg/min. The patient was on the mechanical ventilator on assist-control mode with rate of 14, tidal volume of 600, FiO2 of 100% with a PEEP of 10. Initial blood gas showed a pH of 7.29 with a pCO2 of 48 and pO2 of 231. Chest x-ray showed a dequate expansion of both lungs. Left lower remedy such issues were all in place. The patient had a Mansfield-Prosper catheter placed. PA pressures were 35/26. Cardiac output was at 9.2 with an index of 3.6. Adequate urine output. No pressors. The cardiac rhythm is sinus. The patient was on nitroglycerin at 5 mcg/min and the patient was on insulin drip at 8 units an hour. White cell count at 17.7 with a hemoglobin 15.2 and a platelet count of 225. Output from the chest tubes are minimal less than 200 cc from each pleural and mediastinal chest tube. Remains hemodynamically stable. Noted the preoperative echocardiogram showed impairment in the LV function with an estimated ejection fraction of 30 to 35%. The patient is known to have hypertension, hyperlipidemia, type 2 diabetes mellitus and is a chronic smoker. He also has a positive family history for coronary artery disease. On 10/12/2024, the patient is being seen for a follow-up. The patient is postop day #1. The patient underwent coronary bypass surgery and coronary revascularization. On today's evaluation, the patient is on 5 L of oxygen by nasal cannula. The patient was extubated yesterday to nasal cannula. Melissa harman, the patient is a normal sinus rhythm. He has encountered some sinus tachycardia since extubation. The patient is on low-dose metoprolol 25 mg p.o. twice a day. Urine output is being monitored. Blood pressure is soft and the patient was given a dose of IV albumin overnight. Chest x-ray shows small left- sided pleural effusion. No pneumothorax. Chest tubes are in place. Mansfield-Prosper in place. The output from the mediastinal chest tube has been 110 cc over the past 8 hours, none from the left pleural. The patient's cardiac output is 8.3 with an index of 3.3. PA pressures of 33/18. Remains on insulin drip at 7 units an hour. Remains on nitroglycerin drip at 5 mcg/min. White cell count of 15.7 with a hemoglobin 12.7 and a platelet count of 205. BUN is 6 with a creatinine of 0.7. Sodium levels at 134 with a potassium level of 4.2. LFTs are within normal limits. Using incentive spirometer. Neurologically intact. On 10/13/2024, the patient is being seen for a follow-up. Patient is doing extremely well. No specific complaints. Sitting up in a chair. Continues to be in sinus tachycardia although seems to be less tachycardic compared to yesterday. The patient is currently on metoprolol 50 mg p.o. twice daily and Cardizem 60 mg p.o. 3 times daily. He remains also on insulin drip running at 20 units an hour. Hemodynamically stable. Cardiac rhythm is sinus. Chest tubes are in place. Output is minimal. Chest x-ray from today is not showing any acute abnormalities. No evidence of any pneumothorax. Small atelectatic changes and effusion lung bases bilaterally. The patient has no new complaints. Neurologically intact. White cell count of 12.9 with a hemoglobin 12 and a platelet count of 168. Sodium is at 132 with a BUN of 9 and a creatinine of 0.8. Serum bicarb is at 23. Afebrile. The patient is currently postop day #2. Using the incentive spirometer. Ambulating. Objective - Vital Signs Vital signs: Vital Signs Temp 98.7 F 10/13/24 00:00 Pulse 137 H 10/13/24 07:00 Resp 32 H 10/13/24 07:00 BP 112/74 10/13/24 07:00 Pulse Ox 94 L 10/13/24 07:00 FiO2 50 10/11/24 17:16 Intake & Output 10/12/24 10/13/24 10/13/24 18:59 06:59 18:59 Intake Total 7705.741 1016.940 26.523 Output Total 911 1495 50 Balance 227.875 -418.060 -23.477 Weight 130.3 kg Intake: IV 612 243 20 Albumin Human 5% 250 ml 250 In Empty Bag 1 bag @ 250 mls/hr IVPB Q1HR PRN Rx#: [id number] Lines 42 3 Sodium Chloride 0.9% 1, 320 240 20 000 ml @ 20 mls/hr IV . Q24H [facility] Rx#:[id number] Intake, IV Titration 106.875 163.940 6.523 Amount Insulin Regular 100 unit 106.875 163.940 6.523 In Sodium Chloride 0.9% 100 ml @ Per Protocol IV .Q0M [facility] Rx#:[id number] Oral 420 670 Output: Chest Tube Drainage 114 110 Left Pleural - 36f 4 0 Mediastinal 32f 110 110 Drainage 30 50 Left Wrist 20 Right Calf 30 30 Urine 767 1335 50 Other: Voiding Method Indwelling Catheter Indwelling Catheter ABP, PAP, CO, CI - Last Documented Arterial Blood Pressure 87/86 Pulmonary Artery Pressure 30/14 Cardiac Output 8.3 Cardiac Index 3.3 - Exam CONSTITUTIONAL: Appears comfortable, cooperative, no acute distress RESPIRATORY: Lungs sounds diminished in the bases bilaterally. Respirations even, nonlabored. Currently on 2 L nasal cannula with oxygen saturation 94%. Able to achieve 3540-6633 mL on incentive spirometry. Strong cough. CARDIOVASCULAR: S1, S2 present. Tachycardic but regular rate and rhythm, sinus tach on telemetry. Sternum stable. Palpable peripheral pulses bilaterally. Trace generalized edema present. No calf pain or tenderness noted. Heart hugger, antiembolism stockings, SCDs present. GASTROINTESTINAL: Abdomen soft, nontender, nondistended. Active bowel sounds present 4 quadrants. Tolerating diet. Positive flatus GENITOURINARY: Zhang present draining clear, yellow urine. Output overnight 35-150 mL per hour, 2042 mL in the last 24 hours INTEGUMENTARY: Skin is warm and dry with evidence of good perfusion. Anterior chest incision well approximated and covered with dry intact dressing. Left radial artery harvest site as well as right lower extremity EVH site well approximated without redness, MADDY drains present with minimal drainage NEUROLOGIC: Cranial nerves II through XII intact MUSKULOSKELETAL: Able to move all extremities, strength equal bilaterally, gait normal PSYCHIATRIC: Alert and oriented to person place and time, appropriate affect, intact judgment and insight INVASIVE LINES AND TUBES: Mediastinal/left pleural chest tubes present and connected to wall suction, no air leaks present. Mediastinal tube with 80 mL serosanguineous drainage overnight, 200 mL in the last 24 hours. Left pleural chest tube with minimal output in the last 24 hours. Right internal jugular cordis present - Labs CBC & Chem 7: 10/13/24 05:16 10/13/24 05:16 Labs: Abnormal Lab Results - Last 24 Hours (Table) 10/11/24 10/12/24 10/12/24 Range/Units 06:44 08:38 09:46 WBC (3.8-10.6) k/uL RBC (4.30-5.90) m/uL Hgb (13.0-17.5) gm/dL Hct (39.0-53.0) % Neutrophils # (1.3-7.7) k/uL Sodium (137-145) mmol/L Glucose (74-99) mg/dL POC Glucose (mg/dL) 209 H 187 H (70-110) mg/dL Total Protein (6.3-8.2) g/dL Crossmatch See Detail 10/12/24 10/12/24 10/12/24 Range/Units 11:11 12:12 13:11 WBC (3.8-10.6) k/uL RBC (4.30-5.90) m/uL Hgb (13.0-17.5) gm/dL Hct (39.0-53.0) % Neutrophils # (1.3-7.7) k/uL Sodium (137-145) mmol/L Glucose (74-99) mg/dL POC Glucose (mg/dL) 153 H 141 H 239 H (70-110) mg/dL Total Protein (6.3-8.2) g/dL Crossmatch 10/12/24 10/12/24 10/12/24 Range/Units 14:04 15:08 16:08 WBC (3.8-10.6) k/uL RBC (4.30-5.90) m/uL Hgb (13.0-17.5) gm/dL Hct (39.0-53.0) % Neutrophils # (1.3-7.7) k/uL Sodium (137-145) mmol/L Glucose (74-99) mg/dL POC Glucose (mg/dL) 239 H 232 H 204 H (70-110) mg/dL Total Protein (6.3-8.2) g/dL Crossmatch 10/12/24 10/12/24 10/12/24 Range/Units 17:02 18:12 19:15 WBC (3.8-10.6) k/uL RBC (4.30-5.90) m/uL Hgb (13.0-17.5) gm/dL Hct (39.0-53.0) % Neutrophils # (1.3-7.7) k/uL Sodium (137-145) mmol/L Glucose (74-99) mg/dL POC Glucose (mg/dL) 204 H 200 H 204 H (70-110) mg/dL Total Protein (6.3-8.2) g/dL Crossmatch 10/12/24 10/12/24 10/12/24 Range/Units 20:47 22:24 23:57 WBC (3.8-10.6) k/uL RBC (4.30-5.90) m/uL Hgb (13.0-17.5) gm/dL Hct (39.0-53.0) % Neutrophils # (1.3-7.7) k/uL Sodium (137-145) mmol/L Glucose (74-99) mg/dL POC Glucose (mg/dL) 172 H 163 H 176 H (70-110) mg/dL Total Protein (6.3-8.2) g/dL Crossmatch 10/13/24 10/13/24 10/13/24 Range/Units 04:55 05:16 05:16 WBC 12.9 H (3.8-10.6) k/uL RBC 3.93 L (4.30-5.90) m/uL Hgb 12.1 L (13.0-17.5) gm/dL Hct 36.9 L (39.0-53.0) % Neutrophils # 11.1 H (1.3-7.7) k/uL Sodium 132 L (137-145) mmol/L Glucose 152 H (74-99) mg/dL POC Glucose (mg/dL) 144 H (70-110) mg/dL Total Protein 5.6 L (6.3-8.2) g/dL Crossmatch 10/13/24 10/13/24 Range/Units 06:47 07:59 WBC (3.8-10.6) k/uL RBC (4.30-5.90) m/uL Hgb (13.0-17.5) gm/dL Hct (39.0-53.0) % Neutrophils # (1.3-7.7) k/uL Sodium (137-145) mmol/L Glucose (74-99) mg/dL POC Glucose (mg/dL) 182 H 207 H (70-110) mg/dL Total Protein (6.3-8.2) g/dL Crossmatch Microbiology - Last 24 Hours (Table) 10/10/24 18:53 Nasal Screen MRSA/MSSA - Final Nasal Swab Assessment and Plan Plan: Multivessel coronary artery disease, symptoms of the patient is status post urgent coronary artery bypass grafting x 5 with sequential VERGARA to first diagonal and LAD, sequential left radial artery graft to second and third obtuse marginal branches, saphenous vein graft to posterior descending coronary artery. The patient is currently postop day # 2. Cardiac rhythm is sinus and the pat ient is in sinus tachycardia., Hemodynamically stable and the patient has adequate cardiac output and index. No pressors. Mansfield-Prosper catheter has been removed. Chest tubes are in place to be removed today. Postthoracotomy related to bypass surgery, extubated the patient is currently on room air oxygen. Chest tubes are still in place Sinus tachycardia, improving, currently on a combination of Cardizem and metoprolol Status post inferior wall myocardial infarction, non-ST segment elevation myocardial infarction Ischemic cardiomyopathy with an ejection fraction of 30 to 35%, preop Diabetes mellitus type 2, currently on insulin drip for blood sugar control Hypertension Hyperlipidemia History of smoking Plan Continue using incentive spirometer Pulmonary toileting Patient is currently on room air oxygen Remove chest tubes Metoprolol 50 mg p.o. 3 times daily Cardizem 60 mg p.o. 3 times daily Discontinue the insulin drip and start the patient on Levemir insulin 20 units twice daily and 5 units with meals and sliding scale coverage Monitor blood sugar Aspirin and Plavix Monitor output from the chest tubes Chest x-ray was reviewed Hemodynamically stable Will continue to follow.
[2024-10-13 16:37] LABS: Glucose,Whole Blood 174 mg/dL (70-110)
[2024-10-13] MEDS ORDERED: ACETAMINOPHEN TAB 500 MG TAB PO PRN (18:00)
[2024-10-13 20:22] LABS: Glucose,Whole Blood 230 mg/dL (70-110)
[2024-10-14 03:40] LABS: Basophils % (A) 0 %; Eosinophils # (A) 0.2 k/uL (0-0.7); Eosinophils % (A) 2 %; HCT 32.1 % (39.0-53.0); HGB 10.8 gm/dL (13.0-17.5); Lymphocytes # (A) 1.4 k/uL (1.0-4.8); Lymphocytes % (A) 15 %; MCH 31.4 pg (25.0-35.0); MCHC 33.7 g/dL (31.0-37.0); MCV 93.1 fL (80.0-100.0); Mean Platelet Volume 8.7; Monocytes # (A) 0.5 k/uL (0-1.0); Monocytes % (A) 5 %; Neutrophils # (A) 7.4 k/uL (1.3-7.7); Neutrophils % (A) 77 %; Platelet Count 195 k/uL (150-450); RBC 3.45 m/uL (4.30-5.90); WBC 9.5 k/uL (3.8-10.6)
[2024-10-14 04:06] LABS: ALT 14 U/L (4-49); AST 31 U/L (17-59); African American GFR (CKD) >90 (>60 ml/min/1.73 sqM); Alkaline Phosphatase 75 U/L (38-126); Anion Gap 7 mmol/L; Blood Urea Nitrogen 11 mg/dL (9-20); Calcium 8.5 mg/dL (8.4-10.2); Carbon Dioxide 23 mmol/L (22-30); Chloride 105 mmol/L (98-107); Glucose 175 mg/dL (74-99); Non-African American GFR(CKD) >90 (>60 ml/min/1.73 sqM); Potassium 3.9 mmol/L (3.5-5.1); Sodium 135 mmol/L (137-145); Total Bilirubin 0.6 mg/dL (0.2-1.3); Total Protein 5.2 g/dL (6.3-8.2)
[2024-10-14] MEDS: POTASSIUM CHLORIDE ER 20 MEQ TAB.ER PO SCH (05:55)
[2024-10-14 06:38] LABS: Glucose,Whole Blood 187 mg/dL (70-110)
--- NOTE | 2024-10-14 07:34 | P.PN ---
Subjective HISTORY OF PRESENTING ILLNESS This is a pleasant 49-year-old with past medical history significant for hypertension, hyperlipidemia is, diabetes mellitus type 2, tobacco abuse, spinal stenosis, family history of CAD and CAD. He presented to [facility] with heartburn and chest discomfort or last 2-3 weeks and was found to have non- STEMI with troponin up to 4000. He was chest pain-free and eventually underwent diagnostic heart catheterization which showed multivessel CAD with RCA 100% occluded, LAD 80-90% stenosis at the level of a diagonal branch and intermediate disease of the proximal circumflex as well as on 2 branch. Echocardiogram showed EF 40-45% with trace mitral regurgitation. He was transferred to [facility] for further assessment and surgical opinion. Repeat echo showed EF 30- 35% with mid to basal inferior wall hypokinesia. He underwent CABG x 5 with sequential VERGARA to first diagonal and LAD, left radial to OM 2 and 013, SVG to PDA and occlusion of the left atrial appendage with a 35mm AtriCure Clip. He remains on ventilator after surgery with currently 100% FiO2 however is being weaned. 10/12/24 Patient seen and examined. Patient extubated last night. Heart rates have been in the 100-120 range and therefore was placed on Cardizem as well as the metoprolol. Off of any vasopressors. On 5 L nasal cannula with oxygen saturations in the 90s. 10/13 patient seen and examined. Denies any chest pain or pressure other than his pain with deep inspiration from his chest tubes. Minimal output of the chest tubes 50 mL overnight and 10 from the right and left chest tubes. He does have an appetite. No significant shortness breath. Remains tachycardic with heart rates 110s to 130s. 10/14 Patient seen and examined. Patient denies any significant chest pain over still sore. He does feel better however with the chest tubes removed yesterday. Denies any significant shortness of breath. Creatinine stable at 0.7. EGD and drinking okay. Continue sinus tachycardia with heart rates in the 100 to 1:15 range. He states in the past his heart rate has always been elevated such as when he donated plasma and actually refused him from donating secondary to continued tachycardia. He may have some component of inappropriate sinus tachycardia. PHYSICAL EXAMINATION Vital signs reviewed. CONSTITUTIONAL: No apparent distress, awake and alert HEENT: Head is normocephalic. Pupils are equal, round. Sclerae anicteric. Mucous membranes of the mouth are moist. No JVD. No carotid bruit. CHEST EXAMINATION: Lungs are clear to auscultation. No chest wall tenderness is noted on palpation or with deep breathing. HEART EXAMINATION: Regular rate and rhythm. S1, S2 heard. No murmurs, gallops or rub. ABDOMEN: Soft, nontender. Positive bowel sounds. EXTREMITIES: 2+ peripheral pulses, no lower extremity edema and no calf tenderness. NEUROLOGIC EXAMINATION: Patient is alert and awake ASSESSMENT Non-STEMI CAD status post CABG 5 10/11/2024 Hypertension Hyperlipidemia Diabetes mellitus type 2 Ischemic cardiomyopathy EF 30-35% Tobacco abuse Family history of CAD Sinus tachycardia, may be component of inappropriate sinus tachycardia with similar persistent tachycardia in the past PLAN Continue aspirin and Plavix Amiodarone for A. fib prevention Continue metoprolol Wean sedation, ventilator as able Optimize heart failure regimen as blood pressure allows. Metoprolol was increased up to 100 bid. He may have some component of inappropriate sinus tachycardia with similar persistent tachycardia in the past. Add Losartan 12.5 daily and optimize heart failure regimen. Add Farxiga. Further recommendations to follow. Objective - Vital Signs Vital signs: Vital Signs Temp 99 F 10/13/24 12:00 Pulse 101 H 10/14/24 04:00 Resp 23 10/14/24 04:00 BP 117/83 10/14/24 04:00 Pulse Ox 98 10/13/24 17:00 FiO2 50 10/11/24 17:16 Intake & Output 10/13/24 10/14/24 10/14/24 18:59 06:59 18:59 Intake Total 426.523 750 Output Total 570 1200 Balance -143.477 -450 Weight 130.3 kg 127.9 kg Intake: IV 60 Sodium Chloride 0.9% 1, 60 000 ml @ 20 mls/hr IV . Q24H [facility] Rx#:[id number] Intake, IV Titration 6.523 Amount Insulin Regular 100 unit 6.523 In Sodium Chloride 0.9% 100 ml @ Per Protocol IV .Q0M [facility] Rx#:[id number] Oral 360 750 Output: Chest Tube Drainage 0 Left Pleural - 36f 0 Mediastinal 32f 0 Urine 570 1200 Other: Voiding Method Indwelling Catheter Indwelling Catheter # Bowel Movements 0 ABP, PAP, CO, CI - Last Documented Arterial Blood Pressure 87/86 Pulmonary Artery Pressure 30/14 Cardiac Output 8.3 Cardiac Index 3.3 - Labs CBC & Chem 7: 10/14/24 02:52 10/14/24 02:52 Labs: Abnormal Lab Results - Last 24 Hours (Table) 10/13/24 10/13/24 10/13/24 Range/Units 07:59 08:38 11:24 RBC (4.30-5.90) m/uL Hgb (13.0-17.5) gm/dL Hct (39.0-53.0) % Sodium (137-145) mmol/L Glucose (74-99) mg/dL POC Glucose (mg/dL) 207 H 171 H 174 H (70-110) mg/dL Total Protein (6.3-8.2) g/dL Albumin (3.5-5.0) g/dL 10/13/24 10/13/24 10/14/24 Range/Units 16:36 20:21 02:52 RBC 3.45 L (4.30-5.90) m/uL Hgb 10.8 L (13.0-17.5) gm/dL Hct 32.1 L (39.0-53.0) % Sodium (137-145) mmol/L Glucose (74-99) mg/dL POC Glucose (mg/dL) 174 H 230 H (70-110) mg/dL Total Protein (6.3-8.2) g/dL Albumin (3.5-5.0) g/dL 10/14/24 10/14/24 Range/Units 02:52 06:37 RBC (4.30-5.90) m/uL Hgb (13.0-17.5) gm/dL Hct (39.0-53.0) % Sodium 135 L (137-145) mmol/L Glucose 175 H (74-99) mg/dL POC Glucose (mg/dL) 187 H (70-110) mg/dL Total Protein 5.2 L (6.3-8.2) g/dL Albumin 3.0 L (3.5-5.0) g/dL
--- NOTE | 2024-10-14 07:48 | P.PN ---
Subjective Progress Note Date: 10/14/24 Principal diagnosis: Coronary artery disease, acute inferior wall myocardial infarction secondary to the RCA occlusion, unstable angina, ischemic cardiomyopathy. History of hyperte nsion, hyperlipidemia, untreated diabetes mellitus type 2 with uncontrolled hyperglycemia due to patient noncompliance, obesity, chronic ongoing tobacco dependence, daily marijuana use, osteoarthritis, and family history of premature coronary artery disease POD #3 urgent coronary artery bypass grafting x 5 with sequential VERGARA to first diagonal and LAD, sequential left radial artery graft to second and third obtuse marginal branches, saphenous vein graft to posterior descending coronary artery. Occlusion of the left atrial appendage with 35 mm AtriCure clip. Endoscopic harvest of the left radial artery and the right greater saphenous vein from mid calf to groin The patient was seen and examined this morning sitting up in recliner in the intensive care unit in no acute distress. Currently sinus tach with heart rate in the low 100s, hemodynamically stable. Medications continue to be uptitrated however patient remains tachycardic as he was prior to surgery. Remains on room air with his oxygen saturation in the mid 90s. He is able to achieve 1500 mL on his incentive spirometry. States his expected postsurgical pain is mostly controlled with current medication regimen, the patient does have chronic back pain. He has been ambulatory in the hallway with standby assistance and tolerating well. All lines and tubes discontinued yesterday, transfer orders placed for 3 S. cardiac stepdown unit but there is no bed availability. No other new concerns. Objective - Vital Signs Vital signs: Vital Signs Temp 99 F 10/13/24 12:00 Pulse 101 H 10/14/24 04:00 Resp 23 10/14/24 04:00 BP 117/83 10/14/24 04:00 Pulse Ox 98 10/13/24 17:00 FiO2 50 10/11/24 17:16 Intake & Output 10/13/24 10/14/24 10/14/24 18:59 06:59 18:59 Intake Total 426.523 750 Output Total 570 1200 Balance -143.477 -450 Weight 130.3 kg 127.9 kg Intake: IV 60 Sodium Chloride 0.9% 1, 60 000 ml @ 20 mls/hr IV . Q24H [facility] Rx#:[id number] Intake, IV Titration 6.523 Amount Insulin Regular 100 unit 6.523 In Sodium Chloride 0.9% 100 ml @ Per Protocol IV .Q0M [facility] Rx#:[id number] Oral 360 750 Output: Chest Tube Drainage 0 Left Pleural - 36f 0 Mediastinal 32f 0 Urine 570 1200 Other: Voiding Method Indwelling Catheter Indwelling Catheter # Bowel Movements 0 ABP, PAP, CO, CI - Last Documented Arterial Blood Pressure 87/86 Pulmonary Artery Pressure 30/14 Cardiac Output 8.3 Cardiac Index 3.3 - Exam CONSTITUTIONAL: Appears comfortable, cooperative, no acute distress RESPIRATORY: Lungs sounds diminished in the bases bilaterally. Respirations even, nonlabored. Currently on room air with oxygen saturation 94%. Able to achieve 1500 mL on incentive spirometry. Strong productive cough with clear sputum. CARDIOVASCULAR: S1, S2 present. Tachycardic but regular rate and rhythm, sinus tach on telemetry. Sternum stable. Palpable peripheral pulses bilaterally. Trace generalized edema present. No calf pain or tenderness noted. Heart hugger, antiembolism stockings, SCDs present. GASTROINTESTINAL: Abdomen soft, nontender, nondistended. Active bowel sounds present 4 quadrants. Tolerating diet. Positive flatus GENITOURINARY: Zhang discontinued yesterday, continues to void clear, yellow urine. Output 1770 mL in the last 24 hours INTEGUMENTARY: Skin is warm and dry with evidence of good perfusion. Anterior chest incision well approximated and covered with dry intact dressing. Left radial artery harvest site as well as right lower extremity EVH site well approximated without redness or drainage NEUROLOGIC: Cranial nerves II through XII intact MUSKULOSKELETAL: Able to move all extremities, strength equal bilaterally, gait normal PSYCHIATRIC: Alert and oriented to person place and time, appropriate affect, intact judgment and insight - Allied health notes Allied health notes reviewed: nursing - Labs CBC & Chem 7: 10/14/24 02:52 10/14/24 02:52 Labs: Abnormal Lab Results - Last 24 Hours (Table) 10/13/24 10/13/24 10/13/24 Range/Units 07:59 08:38 11:24 RBC (4.30-5.90) m/uL Hgb (13.0-17.5) gm/dL Hct (39.0-53.0) % Sodium (137-145) mmol/L Glucose (74-99) mg/dL POC Glucose (mg/dL) 207 H 171 H 174 H (70-110) mg/dL Total Protein (6.3-8.2) g/dL Albumin (3.5-5.0) g/dL 10/13/24 10/13/24 10/14/24 Range/Units 16:36 20:21 02:52 RBC 3.45 L (4.30-5.90) m/uL Hgb 10.8 L (13.0-17.5) gm/dL Hct 32.1 L (39.0-53.0) % Sodium (137-145) mmol/L Glucose (74-99) mg/dL POC Glucose (mg/dL) 174 H 230 H (70-110) mg/dL Total Protein (6.3-8.2) g/dL Albumin (3.5-5.0) g/dL 10/14/24 10/14/24 Range/Units 02:52 06:37 RBC (4.30-5.90) m/uL Hgb (13.0-17.5) gm/dL Hct (39.0-53.0) % Sodium 135 L (137-145) mmol/L Glucose 175 H (74-99) mg/dL POC Glucose (mg/dL) 187 H (70-110) mg/dL Total Protein 5.2 L (6.3-8.2) g/dL Albumin 3.0 L (3.5-5.0) g/dL - Imaging and Cardiology Chest x-ray: image reviewed Assessment and Plan Assessment: Coronary artery disease, acute inferior wall myocardial infarction secondary to the RCA occlusion, unstable angina, status post urgent 5 vessel off-pump CABG Ischemic cardiomyopathy, EF 30 to 35% Tachycardia, has been present for the entire admission History of hypertension Hyperlipidemia, cholesterol 163, LDL 82, triglycerides 274 Untreated diabetes mellitus type 2 with uncontrolled hyperglycemia due to patient noncompliance, hemoglobin A1c 9.4% Obesity Chronic ongoing tobacco dependence Daily marijuana use Osteoarthritis Family history of premature coronary artery disease Plan: Continue to maximize medical therapy with aspirin, statin, Plavix, beta-ludivina. Will increase beta-ludivina therapy as tolerated, increased to 100 mg 2 times daily today Continue oral calcium channel ludivina for radial artery spasm prophylaxis Low-dose losartan added for afterload reduction, Farxiga added Encourage incentive spirometry use 10 times every hour while awake. Bronchod ilators per pulmonology Increase activity, ambulate as tolerated. PT/OT/cardiac rehab consulted Will monitor daily labs and x-rays. Electrolyte replacement per protocol GI/DVT prophylaxis Insulin management per internal medicine Pain control per current medication regimen Continue to monitor and record strict accurate intake and output Daily weights Shower daily, first shower today Smoking cessation counseling and education reinforced Transfer orders placed yesterday for 3 S. cardiac stepdown unit, may transfer when bed available Discharge planning in progress, anticipate discharge to home with home care in the next 24 to 48 hours More recommendations to follow
--- NOTE | 2024-10-14 08:24 | XR ---
EXAMINATION TYPE: XR chest 2V DATE OF EXAM: 10/14/2024 6:37 AM COMPARISON: 10/23/2024 CLINICAL INDICATION: Male, 49 years old with history of post cardiac surgery, , TECHNIQUE: PA and lateral views FINDINGS: Median sternotomy wires and postsurgical clips. Heart upper limits of normal in size. Suggestion of a few scattered calcified granulomas. Interval removal of left chest tube. No appreciable pneumothorax . Mild interstitial density remains low with some improvement. Ongoing small left pleural effusion wi th left basilar and retrocardiac opacity. IMPRESSION: 1. Removal left chest tube. No appreciable pneumothorax. 2. Some mild residual pulmonary edema improved from prior. 3. Similar small left pleural effusion with adjacent atelectasis and/or consolidation. [facility], , 10/14/2024 8:22 AM
[2024-10-14] MEDS: DAPAGLIFLOZIN PROPANEDIOL 10 MG TABLET PO SCH (08:56)
[2024-10-14] MEDS: METOPROLOL TARTRATE 50 MG TAB PO SCH (08:57)
[2024-10-14] MEDS: ACETAMINOPHEN TAB 500 MG TAB PO PRN (09:00)
[2024-10-14 11:26] LABS: Glucose,Whole Blood 147 mg/dL (70-110)
[2024-10-14] MEDS: LOSARTAN 25 MG TAB PO SCH (11:39)
--- NOTE | 2024-10-14 13:39 | CA ---
Transthoracic Echo Report Name: Marco Castillo Age: 49 Gender: M : 1975 Exam Date: 10/14/2024 12:59 Exam Location: [facility] Ht (in): 76 Wt (lb): 281 Ordering Physician: Zbigniew Britton DO ([id number]) Attending/Referring Phys: Bioinformatics Programmer Tracey Tai RDCS Procedure CPT: Indications: re: LV function Cardiac Hx: Limited for LVEF Technical Quality: Good Contrast 1: Total Dose (mL): Contrast 2: Total Dose (mL): MEASUREMENTS (Male / Female) Normal Values 2D ECHO LV Diastolic Diameter PLAX 4.9 cm 4.2 - 5.9 / 3.9 - 5.3 cm LV Systolic Diameter PLAX 3.8 cm IVS Diastolic Thickness 1.3 cm 0.6 - 1.0 / 0.6 - 0.9 cm LVPW Diastolic Thickness 1.4 cm 0.6 - 1.0 / 0.6 - 0.9 cm LV Relative Wall Thickness 0.5 LV Diastolic Volume MOD BP 173.0 cm??? 67 - 155 / 56 - 104 cm??? LV Systolic Volume MOD BP 94.4 cm??? 22 - 58 / 19 - 49 cm??? LV Ejection Fraction MOD BP 45.4 % >= 55 % LV Cardiac Index MOD BP 2756.9 cm???/min???m??? LV Diastolic Volume MOD 4C 163.9 cm??? LV Systolic Volume MOD 4C 92.5 cm??? LV Ejection Fraction MOD 4C 43.6 % LV Cardiac Index MOD 4C 2505.9 cm???/min???m??? LV Diastolic Length 4C 9.3 cm LV Systolic Length 4C 8.4 cm LV Diastolic Volume MOD 2C 169.5 cm??? LV Systolic Volume MOD 2C 87.4 cm??? LV Ejection Fraction MOD 2C 48.5 % LV Cardiac Index MOD 2C 2882.3 cm???/min???m??? LV Diastolic Length 2C 8.6 cm LV Systolic Length 2C 7.6 cm DOPPLER PV Peak Velocity 89.6 cm/s PV Peak Gradient 3.2 mmHg FINDINGS Left Ventricle Left ventricular ejection fraction is estimated at 35-40%. Mildly increased septal wall thickness. Mildly increased left ventricular diastolic volume. Moderately increased LV cavity size. Mildly decreased left ventricular ejection fraction. Inferior wall hypokinesis. Right Ventricle Right Atrium Left Atrium Mitral Valve Aortic Valve Tricuspid Valve Pulmonic Valve Pericardium Small posterior pericardial effusion. Aorta CONCLUSIONS Limited echo for LVEF LVEF 35 to 40% Moderately increased LV cavity size. Inferior wall hypokinesia Small posterior pericardial effusion with no signs of tamponade Previewed by: Dr Roman Villalba (Electronically Signed) Final Date: 14 October 2024 13:38
--- NOTE | 2024-10-14 13:45 | P.PN ---
Subjective Progress Note Date: 10/14/24 49-year-old male patient was being seen in the intensive care is following earl nary artery bypass surgery. The patient underwent an urgent four-vessel bypass surgery including VERGARA to LAD and first diagonal and sequential left radial artery graft to second and third obtuse marginal branch and saphenous vein graft to PDA. The patient has multivessel coronary disease and the patient is status post inferior wall myocardial infarction secondary to RCA occlusion. He initially presented to us with heartburn and he ruled in for inferior wall myocardial infarction. Cardiac catheterization was done and subsequent and the patient was taken to the operating room for urgent revascularization. At the time of my evaluation, the patient was intubated on the mechanical ventilator. The patient was sedated with propofol running at 30 mcg/kg/min. The patient was on the mechanical ventilator on assist-control mode with rate of 14, tidal volume of 600, FiO2 of 100% with a PEEP of 10. Initial blood gas showed a pH of 7.29 with a pCO2 of 48 and pO2 of 231. Chest x-ray showed a dequate expansion of both lungs. Left lower remedy such issues were all in place. The patient had a Kimball-Prosper catheter placed. PA pressures were 35/26. Cardiac output was at 9.2 with an index of 3.6. Adequate urine output. No pressors. The cardiac rhythm is sinus. The patient was on nitroglycerin at 5 mcg/min and the patient was on insulin drip at 8 units an hour. White cell count at 17.7 with a hemoglobin 15.2 and a platelet count of 225. Output from the chest tubes are minimal less than 200 cc from each pleural and mediastinal chest tube. Remains hemodynamically stable. Noted the preoperative echocardiogram showed impairment in the LV function with an estimated ejection fraction of 30 to 35%. The patient is known to have hypertension, hyperlipidemia, type 2 diabetes mellitus and is a chronic smoker. He also has a positive family history for coronary artery disease. On 10/12/2024, the patient is being seen for a follow-up. The patient is postop day #1. The patient underwent coronary bypass surgery and coronary revascularization. On today's evaluation, the patient is on 5 L of oxygen by nasal cannula. The patient was extubated yesterday to nasal cannula. Melissa harman, the patient is a normal sinus rhythm. He has encountered some sinus tachycardia since extubation. The patient is on low-dose metoprolol 25 mg p.o. twice a day. Urine output is being monitored. Blood pressure is soft and the patient was given a dose of IV albumin overnight. Chest x-ray shows small left- sided pleural effusion. No pneumothorax. Chest tubes are in place. Kimball-Prosper in place. The output from the mediastinal chest tube has been 110 cc over the past 8 hours, none from the left pleural. The patient's cardiac output is 8.3 with an index of 3.3. PA pressures of 33/18. Remains on insulin drip at 7 units an hour. Remains on nitroglycerin drip at 5 mcg/min. White cell count of 15.7 with a hemoglobin 12.7 and a platelet count of 205. BUN is 6 with a creatinine of 0.7. Sodium levels at 134 with a potassium level of 4.2. LFTs are within normal limits. Using incentive spirometer. Neurologically intact. On 10/13/2024, the patient is being seen for a follow-up. Patient is doing extremely well. No specific complaints. Sitting up in a chair. Continues to be in sinus tachycardia although seems to be less tachycardic compared to yesterday. The patient is currently on metoprolol 50 mg p.o. twice daily and Cardizem 60 mg p.o. 3 times daily. He remains also on insulin drip running at 20 units an hour. Hemodynamically stable. Cardiac rhythm is sinus. Chest tubes are in place. Output is minimal. Chest x-ray from today is not showing any acute abnormalities. No evidence of any pneumothorax. Small atelectatic changes and effusion lung bases bilaterally. The patient has no new complaints. Neurologically intact. White cell count of 12.9 with a hemoglobin 12 and a platelet count of 168. Sodium is at 132 with a BUN of 9 and a creatinine of 0.8. Serum bicarb is at 23. Afebrile. The patient is currently postop day #2. Using the incentive spirometer. Ambulating. On 10/14/2024, seen the patient for a follow-up. Doing extremely well on room air oxygen. Using the incentive spirometer. Following approximately 1500 on the spirometer. Chest x-ray shows no evidence of any pneumothorax. Limited atelectatic changes left lung base. Patient is postop day #3. Continues to have some degree of sinus tachycardia which is improved and the patient is currently on metoprolol 100 mg p.o. twice daily and Cardizem 60 mg p.o. 3 times daily. The patient remains on aspirin and Plavix. He was also started on Cozaar 12.5 mg p.o. daily. Ambulating. Blood work from today shows a white cell count of 9.5 with a hemoglobin 10.8 and a platelet count of 195. BUN is 11 with a creatinine of 0.77 and sodium levels at 135. LFTs are essentially within normal limits. No other new complaints for now. Objective - Vital Signs Vital signs: Vital Signs Temp 99 F 10/13/24 12:00 Pulse 102 H 10/14/24 08:10 Resp 23 10/14/24 04:00 BP 117/83 10/14/24 04:00 Pulse Ox 98 10/13/24 17:00 FiO2 50 10/11/24 17:16 Intake & Output 10/13/24 10/14/24 10/14/24 18:59 06:59 18:59 Intake Total 426.523 750 Output Total 570 1200 Balance -143.477 -450 Weight 130.3 kg 127.9 kg Intake: IV 60 Sodium Chloride 0.9% 1, 60 000 ml @ 20 mls/hr IV . Q24H ERASMO Rx#:[id number] Intake, IV Titration 6.523 Amount Insulin Regular 100 unit 6.523 In Sodium Chloride 0.9% 100 ml @ Per Protocol IV .Q0M ERASMO Rx#:[id number] Oral 360 750 Output: Chest Tube Drainage 0 Left Pleural - 36f 0 Mediastinal 32f 0 Urine 570 1200 Other: Voiding Method Indwelling Catheter Indwelling Catheter # Bowel Movements 0 ABP, PAP, CO, CI - Last Documented Arterial Blood Pressure 87/86 Pulmonary Artery Pressure 30/14 Cardiac Output 8.3 Cardiac Index 3.3 - Exam CONSTITUTIONAL: Appears comfortable, cooperative, no acute distress, currently on room air oxygen RESPIRATORY: Lungs sounds diminished in the bases bilaterally. Respirations even, nonlabored. Currently on 2 L nasal cannula with oxygen saturation 94%. Able to achieve 8344-4817 mL on incentive spirometry. Strong cough. CARDIOVASCULAR: S1, S2 present. Tachycardic but regular rate and rhythm, sinus tach on telemetry. Sternum stable. Palpable peripheral pulses bilaterally. Trace generalized edema present. No calf pain or tenderness noted. Heart hugger, antiembolism stockings, SCDs present. GASTROINTESTINAL: Abdomen soft, nontender, nondistended. Active bowel sounds present 4 quadrants. Tolerating diet. Positive flatus GENITOURINARY: Zhang present draining clear, yellow urine. INTEGUMENTARY: Skin is warm and dry with evidence of good perfusion. Anterior chest incision well approximated and covered with dry intact dressing. Left radial artery harvest site as well as right lower extremity EVH site well approximated without redness, MADDY drains present with minimal drainage NEUROLOGIC: Cranial nerves II through XII intact MUSKULOSKELETAL: Able to move all extremities, strength equal bilaterally, gait normal PSYCHIATRIC: Alert and oriented to person place and time, appropriate affect, intact judgment and insight - Labs CBC & Chem 7: 10/14/24 02:52 10/14/24 02:52 Labs: Abnormal Lab Results - Last 24 Hours (Table) 10/13/24 10/13/24 10/13/24 Range/Units 11:24 16:36 20:21 RBC (4.30-5.90) m/uL Hgb (13.0-17.5) gm/dL Hct (39.0-53.0) % Sodium (137-145) mmol/L Glucose (74-99) mg/dL POC Glucose (mg/dL) 174 H 174 H 230 H (70-110) mg/dL Total Protein (6.3-8.2) g/dL Albumin (3.5-5.0) g/dL 10/14/24 10/14/24 10/14/24 Range/Units 02:52 02:52 06:37 RBC 3.45 L (4.30-5.90) m/uL Hgb 10.8 L (13.0-17.5) gm/dL Hct 32.1 L (39.0-53.0) % Sodium 135 L (137-145) mmol/L Glucose 175 H (74-99) mg/dL POC Glucose (mg/dL) 187 H (70-110) mg/dL Total Protein 5.2 L (6.3-8.2) g/dL Albumin 3.0 L (3.5-5.0) g/dL Assessment and Plan Plan: Multivessel coronary artery disease, symptoms of the patient is status post urgent coronary artery bypass grafting x 5 with sequential VERGARA to first diagonal and LAD, sequential left radial artery graft to second and third obtuse marginal branches, saphenous vein graft to posterior descending coronary artery. The patient is currently postop day # 3. Cardiac rhythm is sinus tachycardia the patient is currently on a combination of metoprolol and Cardizem. All of the chest tubes have been removed and the patient remains hemodynamically stable. Postthoracotomy related to bypass surgery, extubated the patient is currently on room air oxygen. Chest tubes have been removed Sinus tachycardia, improving, currently on a combination of Cardizem and metoprolol Status post inferior wall myocardial infarction, non-ST segment elevation myocardial infarction Ischemic cardiomyopathy with an ejection fraction of 30 to 35%, preop Diabetes mellitus type 2, currently on insulin drip for blood sugar control Hypertension Hyperlipidemia History of smoking Plan Continue using incentive spirometer Pulmonary toileting Patient is currently on room air oxygen Chest tubes have been removed Metoprolol 100 mg p.o. twice daily Cardizem 60 mg p.o. 3 times daily Cozaar 12.5 mg p.o. daily Continue Levemir insulin 20 units twice daily and 5 units with meals and sliding scale coverage Monitor blood sugar Aspirin and Plavix Monitor output from the chest tubes Chest x-ray was reviewed Hemodynamically stable Will continue to follow.
[2024-10-14 15:50] VITALS: RESP 16
--- NOTE | 2024-10-14 16:17 | P.PN ---
Subjective Progress Note Date: 10/14/24 On 10/11/2024 patient was already off the floor for CABG procedure.Patient diagnosed the day prior with NSTEMI with troponin 4000, abnormal EKG at [facility]. Underwent cardiac catheterization reporting significant multi-vessel disease, recommending CABG and patient was transferred to [facility] yesterday. Patient has a past medical history significant for noncompliant diabetes mellitus, hemoglobin A1c 7.2 in June 2024. PCPs office reports despite strong encouragement, patient declined medical management. Patient also presents with nicotine dependence, 1 pack/day, marijuana Gummies every night, obesity with a BMI of 33, hypertension, hyperlipidemia, osteoarthritis, hypothyroidism, laminectomy, chronic back pain and multiple other medical issues. 10/12/2024 status post urgent CABG x 5 with sequential VERGARA to the first diagonal LAD, sequential LAD radial artery graft to the second and third obtuse marginal branches, saphenous vein graft to the posterior descending. Occlusion of the left atrial appendage with 35 mm AtriCure clip. Tolerated procedure well. Extubated last night, maintaining O2 sats in the 90s on 5 L nasal cannula. Chest x-ray pending. currently on nitroglycerin and insulin drips. Blood sugars 100s to low 200s .sinus tachycardia, heart rates in the 1 teens to 120s. C.O/C.I. 8.3/3.3. Renal function stable. reports generalized soreness and chronic back pain. 10/13/2024 sinus tachycardia, beta-ludivina increased. Blood sugars ranging from 81 to low 200s, transitioning off insulin drip. Ambulated twice in hallway, tolerated exertion well. Pain better controlled, post chest tubes being discontinued. Chronic back pain. Incentive spirometer up to 1200. 10/14/2024 maintained on Cozaar, metoprolol, Cardizem, aspirin and Plavix . telemetry reporting tachycardia, currently low 100s. blood sugars better controlled. Reports ambulated, tolerating exertion well. Chronic back pain and generalized surgical soreness. Afebrile, normal WBC. Objective - Vital Signs Vital signs: Vital Signs Temp 98.0 F 10/14/24 15:49 Pulse 103 H 10/14/24 15:49 Resp 16 10/14/24 15:49 BP 108/70 10/14/24 15:49 Pulse Ox 95 10/14/24 15:49 FiO2 50 10/11/24 17:16 Intake & Output 10/13/24 10/14/24 10/14/24 18:59 06:59 18:59 Intake Total 426.523 750 Output Total 570 1200 150 Balance -143.477 -450 -150 Weight 130.3 kg 127.9 kg Intake: IV 60 Sodium Chloride 0.9% 1, 60 000 ml @ 20 mls/hr IV . Q24H ERASMO Rx#:[id number] Intake, IV Titration 6.523 Amount Insulin Regular 100 unit 6.523 In Sodium Chloride 0.9% 100 ml @ Per Protocol IV .Q0M ERASMO Rx#:[id number] Oral 360 750 Output: Chest Tube Drainage 0 Left Pleural - 36f 0 Mediastinal 32f 0 Urine 570 1200 150 Other: Voiding Method Indwelling Catheter Indwelling Catheter Indwelling Catheter # Bowel Movements 0 ABP, PAP, CO, CI - Last Documented Arterial Blood Pressure 87/86 Pulmonary Artery Pressure 30/14 Cardiac Output 8.3 Cardiac Index 3.3 - Exam PHYSICAL EXAM: VITAL SIGNS: [Reviewed] GENERAL: Alert and oriented x 3, sitting up in chair, no acute distress HEENT: Normocephalic ,conjunctivae normal. eyes normal. MMM. NECK: Supple, no JVD. CARDIOVASCULAR: S1, S2, tachycardic. No murmur RESPIRATION: Unlabored, equal air entry ,breath sounds diminished in the bases. ABDOMEN: Soft, nondistended, nontender . No guarding. Positive bowel sounds LEGS: no edema. no swelling NERVOUS SYSTEM: Cranial N 2-12 grossly normal.No focal deficits. Skin: Warm and dry, no rash - Labs CBC & Chem 7: 10/14/24 02:52 10/14/24 02:52 Labs: Abnormal Lab Results - Last 24 Hours (Table) 10/13/24 10/13/24 10/14/24 Range/Units 16:36 20:21 02:52 RBC 3.45 L (4.30-5.90) m/uL Hgb 10.8 L (13.0-17.5) gm/dL Hct 32.1 L (39.0-53.0) % Sodium (137-145) mmol/L Glucose (74-99) mg/dL POC Glucose (mg/dL) 174 H 230 H (70-110) mg/dL Total Protein (6.3-8.2) g/dL Albumin (3.5-5.0) g/dL 10/14/24 10/14/24 10/14/24 Range/Units 02:52 06:37 11:23 RBC (4.30-5.90) m/uL Hgb (13.0-17.5) gm/dL Hct (39.0-53.0) % Sodium 135 L (137-145) mmol/L Glucose 175 H (74-99) mg/dL POC Glucose (mg/dL) 187 H 147 H (70-110) mg/dL Total Protein 5.2 L (6.3-8.2) g/dL Albumin 3.0 L (3.5-5.0) g/dL Assessment and Plan Assessment: Multivessel CAD, status post urgent CABG x 5 NSTEMI Family history of CAD Ischemic cardiomyopathy, EF 30 to 35% Sinus tachycardia Diabetes mellitus type 2, history of noncompliance, A1c 9.4 Hypertension Hyperlipidemia Nicotine dependence Marijuana use Chronic back pain, history of laminectomy Plan: Continue on current medication regimen ,monitoring and symptomatic irina atment. Discharge planning in progress for tomorrow. Compliance with heart failure and diabetic regimen reinforced. Continue aggressive pulmonary toileting with incentive spirometer. smoking cessation reinforced. Follow-up with PCP in 1 week. The impression and plan of care has been dictated as directed. : I performed a history and examination of this patient, discussed the same with the dictator. I agree with the dictator's note ,documented as a scribe. Any additional findings or plans will be noted.
[2024-10-14 16:29] LABS: Glucose,Whole Blood 209 mg/dL (70-110)
[2024-10-14 20:26] LABS: Glucose,Whole Blood 194 mg/dL (70-110)
[2024-10-14] MEDS: DILTIAZEM CD 180 MG CAP.ER.24H PO SCH (21:10)
[2024-10-14] MEDS: MD COMMUNICATION TO PHARMACY 1 EACH MISC PO ONE ×2 (21:22→21:23)
[2024-10-15 06:02] LABS: Glucose,Whole Blood 156 mg/dL (70-110)
[2024-10-15 06:59] LABS: HCT 31.6 % (39.0-53.0); HGB 10.8 gm/dL (13.0-17.5); MCH 32.2 pg (25.0-35.0); MCHC 34.3 g/dL (31.0-37.0); MCV 93.9 fL (80.0-100.0); Mean Platelet Volume 8.5; Platelet Count 270 k/uL (150-450); RBC 3.36 m/uL (4.30-5.90); RDW 13.3 % (11.5-15.5); WBC 9.6 k/uL (3.8-10.6)
[2024-10-15 07:17] LABS: African American GFR (CKD) >90 (>60 ml/min/1.73 sqM); Anion Gap 10 mmol/L; Blood Urea Nitrogen 15 mg/dL (9-20); Calcium 8.6 mg/dL (8.4-10.2); Carbon Dioxide 20 mmol/L (22-30); Chloride 106 mmol/L (98-107); Glucose 133 mg/dL (74-99); Non-African American GFR(CKD) >90 (>60 ml/min/1.73 sqM); Potassium 3.9 mmol/L (3.5-5.1); Sodium 136 mmol/L (137-145)
[2024-10-15 08:37] VITALS: BP 128/78; PULSE 102; TEMP 98
--- NOTE | 2024-10-15 08:48 | P.PN ---
Subjective Progress Note Date: 10/15/24 Principal diagnosis: Coronary artery disease, acute inferior wall myocardial infarction secondary to the RCA occlusion, unstable angina, ischemic cardiomyopathy. History of hyperte nsion, hyperlipidemia, untreated diabetes mellitus type 2 with uncontrolled hyperglycemia due to patient noncompliance, obesity, chronic ongoing tobacco dependence, daily marijuana use, osteoarthritis, and family history of premature coronary artery disease POD #4 urgent coronary artery bypass grafting x 5 with sequential VERGARA to first diagonal and LAD, sequential left radial artery graft to second and third obtuse marginal branches, saphenous vein graft to posterior descending coronary artery. Occlusion of the left atrial appendage with 35 mm AtriCure clip. Endoscopic harvest of the left radial artery and the right greater saphenous vein from mid calf to groin The patient was seen and examined this morning sitting up in recliner on the cardiac stepdown unit in no acute distress eating breakfast. Currently sinus rhythm with heart rate in the 90s, hemodynamically stable. Remains on room air with his oxygen saturation in the mid 90s. He is able to achieve 2000 mL on his incentive spirometry. States his expected postsurgical pain is mostly controlled with current medication regimen, the patient does have chronic back pain. He has been ambulatory in the hallway and tolerating well. Had first postoperative shower yesterday. Anticipates discharge to home today. Repeat limited echo was completed yesterday demonstrating some improvement in left ventricular systolic function with EF 35 to 40%. No other new concerns. Discussed with Dr. Fontana. Objective - Vital Signs Vital signs: Vital Signs Temp 98.0 F 10/15/24 08:37 Pulse 102 H 10/15/24 08:37 Resp 16 10/15/24 08:37 BP 128/78 10/15/24 08:37 Pulse Ox 97 10/15/24 08:37 FiO2 50 10/11/24 17:16 Intake & Output 10/14/24 10/15/24 10/15/24 18:59 06:59 18:59 Intake Total 10 Output Total 700 700 Balance -700 -700 10 Weight 128 kg Intake: IV 10 Invasive Line 1 10 Output: Urine 700 700 Other: Voiding Method Indwelling Catheter Toilet # Bowel Movements 0 ABP, PAP, CO, CI - Last Documented Arterial Blood Pressure 87/86 Pulmonary Artery Pressure 30/14 Cardiac Output 8.3 Cardiac Index 3.3 - Exam CONSTITUTIONAL: Appears comfortable, cooperative, no acute distress RESPIRATORY: Lungs sounds diminished in the bases bilaterally. Respirations even, nonlabored. Currently on room air with oxygen saturation 97%. Able to achieve 2000 mL on incentive spirometry. Strong productive cough with clear sputum. CARDIOVASCULAR: S1, S2 present. Regular rate and rhythm, sinus rhythm on telemetry. Sternum stable. Palpable peripheral pulses bilaterally. No edema present. No calf pain or tenderness noted. Heart hugger, antiembolism stockings, SCDs present. GASTROINTESTINAL: Abdomen soft, nontender, nondistended. Active bowel sounds present 4 quadrants. Tolerating diet. Positive bowel movement last night x 3 per patient GENITOURINARY: Continues to void clear, yellow urine. Output 1400 mL in the last 24 hours INTEGUMENTARY: Skin is warm and dry with evidence of good perfusion. Anterior chest incision well approximated. Left radial artery harvest site as well as right lower extremity EVH site well approximated without redness or drainage NEUROLOGIC: Cranial nerves II through XII intact MUSKULOSKELETAL: Able to move all extremities, strength equal bilaterally, gait normal PSYCHIATRIC: Alert and oriented to person place and time, appropriate affect, intact judgment and insight - Labs CBC & Chem 7: 10/15/24 05:55 10/15/24 05:55 Labs: Abnormal Lab Results - Last 24 Hours (Table) 10/14/24 10/14/24 10/14/24 Range/Units 11:23 16:27 20:25 RBC (4.30-5.90) m/uL Hgb (13.0-17.5) gm/dL Hct (39.0-53.0) % Sodium (137-145) mmol/L Carbon Dioxide (22-30) mmol/L Glucose (74-99) mg/dL POC Glucose (mg/dL) 147 H 209 H 194 H (70-110) mg/dL 10/15/24 10/15/24 10/15/24 Range/Units 05:55 05:55 06:00 RBC 3.36 L (4.30-5.90) m/uL Hgb 10.8 L (13.0-17.5) gm/dL Hct 31.6 L (39.0-53.0) % Sodium 136 L (137-145) mmol/L Carbon Dioxide 20 L (22-30) mmol/L Glucose 133 H (74-99) mg/dL POC Glucose (mg/dL) 156 H (70-110) mg/dL - Imaging and Cardiology Chest x-ray: image reviewed Assessment and Plan Assessment: Coronary artery disease, acute inferior wall myocardial infarction secondary to the RCA occlusion, unstable angina, status post urgent 5 vessel off-pump CABG Ischemic cardiomyopathy, EF 30-35%, now 35-40% on recent echo Tachycardia, has been present for the entire admission History of hypertension Hyperlipidemia, cholesterol 163, LDL 82, triglycerides 274 Untreated diabetes mellitus type 2 with uncontrolled hyperglycemia due to patient noncompliance, hemoglobin A1c 9.4% Obesity Chronic ongoing tobacco dependence Daily marijuana use Osteoarthritis Family history of premature coronary artery disease Plan: Continue to maximize medical therapy with aspirin, statin, Plavix, beta-ludivina Continue oral calcium channel ludivina for radial artery spasm prophylaxis Continue low-dose losartan for afterload reduction. Farxiga added but patient will not be discharged on Farxiga as he has no insurance coverage and the medication is too expensive Will add low-dose Aldactone Encourage incentive spirometry use 10 times every hour while awake. Bronchodilators per pulmonology Increase activity, ambulate as tolerated. PT/OT/cardiac rehab following Will monitor daily labs and x-rays. Electrolyte replacement per protocol GI/DVT prophylaxis Insulin management per internal medicine. Patient will be discharged home on long-acting insulin, instructed on glucometer use and insulin injection Pain control per current medication regimen Continue to monitor and record strict accurate intake and output Daily weights Shower daily Smoking cessation counseling and education reinforced Discharge planning in progress, anticipate discharge to home with home care today Follow-up appointments have been made, discharge medications have been delivered to the patient's bedside More recommendations to follow
[2024-10-15] MEDS: SPIRONOLACTONE 25 MG TAB PO STA (09:51)
--- NOTE | 2024-10-15 09:54 | XR ---
EXAMINATION TYPE: XR chest 2V DATE OF EXAM: 10/15/2024 6:33 AM COMPARISON: 10/14/2024 CLINICAL INDICATION: Male, 49 years old with history of Postcardiac surgery, TECHNIQUE: XR chest 2V view(s) obtained. FINDINGS: The heart size is normal. The pulmonary vasculature is normal. Mild streaky opacities at the left base likely some atelectasis. Small left pleural effusion is stabl e. IMPRESSION: 1. Streaky atelectasis and small left pleural effusion, stable. [facility], , 10/15/2024 9:52 AM
--- NOTE | 2024-10-15 11:21 | P.DS ---
Providers Date of admission: 10/10/24 13:22 Expected date of discharge: 10/15/24 Attending physician: Fadi Fink Consults: 10/10/24 17:00 Consult Physician Urgent Consulting Provider: Fadi Fink Consult Reason/Comments: multi cardiac vessel disease Do you want consulting provider notified?: Already Contacted 10/11/24 08:21 Consult Physician Routine Consulting Provider: Zbigniew Britton Consult Reason/Comments: NSTEMI Do you want consulting provider notified?: Already Contacted 10/11/24 09:00 Consult to Anesthesia Routine Consulting Provider: Anesthesia,Services Consult Reason/Comments: Cardiac Surgery Pre-Op 10/11/24 14:59 Consult Physician Routine Consulting Provider: Efren Johnson Consult 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: post cardiac surgery Do you want consulting provider notified?: Yes Consult Physician Routine Consulting Provider: Panda Brandon Consult Reason/Comments: Diabetes Management Do you want consulting provider notified?: Yes Primary care physician: Leonor Brandon [facility] Course: FINAL DIAGNOSIS: Coronary artery disease, acute inferior wall myocardial infarction secondary to the RCA occlusion, unstable angina Ischemic cardiomyopathy, EF 30-35%, now 35-40% on recent echo Tachycardia, has been present for the entire admission History of hypertension Hyperlipidemia, cholesterol 163, LDL 82, triglycerides 274 Untreated diabetes mellitus type 2 with uncontrolled hyperglycemia due to patient noncompliance, hemoglobin A1c 9.4% Obesity Chronic ongoing tobacco dependence Daily marijuana use Osteoarthritis Family history of premature coronary artery disease PRINCIPAL PROCEDURE: Urgent coronary artery bypass grafting x 5 with sequential VERGARA to first diagonal and LAD, sequential left radial artery graft to second and third obtuse marginal branches, saphenous vein graft to posterior descending coronary artery Occlusion of the left atrial appendage with 35 mm AtriCure clip Endoscopic harvest of the left radial artery and the right greater saphenous vein from mid calf to groin HISTORY OF PRESENT ILLNESS: This is a 49-year-old gentleman who follows on an outpatient basis with Dr. Leonor Brandon for his primary care. He presented to [facility] October 10, 2024 with complaints of heartburn and recurrent chest discomfort which had been off and on for the previous 2-3 weeks. He denied any recent fever, chills, nausea, vomiting, diarrhea, headache, visual disturbances, hemoptysis, hematemesis, cough, shortness of breath, diaphoresis, presyncope or syncope. He was found to have an abnormal EKG, and troponin was elevated ruling him in for a non-ST elevated myocardial infarction. Due to the patient's presenting symptoms and elevated troponins a consult was placed to Dr. Roth from cardiology. A transthoracic 2D echocardiogram was completed which showed akinesis in the basal inferior and basal to mid inferior septal wall, moderate concentric left ventricular hypertrophy, left ventricular systolic function to be mild to moderately decreased with an ejection fraction of 40 to 45%. It also showed trace mitral valve regurgitation, trace tricuspid valve regurgitation, trace pulmonic valve regurgitation, and trace aortic valve regurgitation. For further evaluation the patient was recommended to undergo urgent cardiac catheterization which revealed totally occluded distal right coronary artery, left anterior descending coronary artery with long tubular lesion of 80 to 90% stenosis, and left circumflex to be a large-caliber vessel with severe disease involving the OM 2 and intermediate disease involving the proximal left circumflex. He was then transferred to [facility] for cardiothoracic surgery consultation. He was evaluated by Dr. Fink who discussed his case with Dr. Urbina, it was felt the LAD lesion was unstable, therefore recommendations were made for urgent surgical myocardial revascularization. The usual perioperative course was discussed in detail with the patient, all risks and benefits were explained, all questions were answered, and consent was obtained to proceed with surgery. The patient was kept inpatient and taken to surgery the day after admission to [facility]. HOSPITAL COURSE: The patient was brought to the preoperative area 10/11/24, prepared in the usual fashion, and subsequently taken to the operating room [facility] Dr. Fink performed urgent 5 vessel off-pump CABG. Upon completion of surgery the patient was transferred to the cardiovascular intensive care unit where he was recovered and monitored hemodynamically. He was extubated, all lines, tubes, and drips were discontinued when appropriate, and he was transferred to [facility] cardiac stepdown unit for further monitoring and rehabilitation. He did have a repeat echocardiogram demonstrating EF 35 to 40%. His oxygen was titrated down, he continued to work with physical and occupational therapy, he was tolerating oral diet, his pain was controlled, and he was ready to be discharged to home with [facility] care on postoperative day #. He received written and verbal instruction regarding his medications, activity restrictions, signs and symptoms requiring physician notification, and follow-up appointments. He was instructed to check his blood sugars before each meal and at bedtime, keep a log and bring with him to his primary care physician appointment. His losartan and spironolactone dose at discharge were 12.5 mg daily, to be uptitrated by cardiology. Plan - Discharge Summary Discharge Rx Participant: Yes New Discharge Prescriptions: New Spironolactone [Aldactone] 12.5 mg PO DAILY #30 tablet Diltiazem Cd [Cardizem CD] 180 mg PO HS #30 cap Losartan [Cozaar] 25 mg PO DAILY #30 tab Metoprolol Tartrate [Lopressor] 100 mg PO BID #60 tab Pantoprazole [Protonix] 40 mg PO AC-BRKFST #30 tab Sennosides-Docusate Sodium [Senokot-S] 2 each PO HS PRN tab PRN Reason: Constipation Insulin Glargine,Hum.rec.anlog [Lantus Solostar Pen] 22 units SQ BID #3 each Aspirin 325 mg PO DAILY #30 tab Atorvastatin [Lipitor] 40 mg PO DAILY #30 tab Clopidogrel [Plavix] 75 mg PO DAILY #30 tab Acetaminophen Tab [Tylenol] 1,000 mg PO Q6HR PRN tab PRN Reason: Fever And/ Or Mild Pain (1-3) Continue Meloxicam [Mobic] 15 mg PO DAILY PRN PRN Reason: Pain Discharge Medication List Meloxicam [Mobic] 15 mg PO DAILY PRN 10/10/24 [History] Acetaminophen Tab [Tylenol] 1,000 mg PO Q6HR PRN tab 10/14/24 [Rx] Aspirin 325 mg PO DAILY #30 tab 10/14/24 [Rx] Atorvastatin [Lipitor] 40 mg PO DAILY #30 tab 10/14/24 [Rx] Clopidogrel [Plavix] 75 mg PO DAILY #30 tab 10/14/24 [Rx] Diltiazem Cd [Cardizem CD] 180 mg PO HS #30 cap 10/14/24 [Rx] Insulin Glargine,Hum.rec.anlog [Lantus Solostar Pen] 22 units SQ BID #3 each 10/14/24 [Rx] Losartan [Cozaar] 25 mg PO DAILY #30 tab 10/14/24 [Rx] Metoprolol Tartrate [Lopressor] 100 mg PO BID #60 tab 01/10/25 [Rx] Pantoprazole [Protonix] 40 mg PO AC-BRKFST #30 tab 10/14/24 [Rx] Sennosides-Docusate Sodium [Senokot-S] 2 each PO HS PRN tab 10/14/24 [Rx] Spironolactone [Aldactone] 12.5 mg PO DAILY #30 tablet 10/14/24 [Rx] Follow up Appointment(s)/Referral(s): Ozzy Roth MD [STAFF PHYSICIAN] - 10/21/24 10:30 am Kenna Wang NPC [Nurse Practitioner] - 10/25/24 12:30 pm (You will be seen in the surgeon's office behind the hospital in [facility], [address] Office phone number is ) Rehab Kameron WALTER,Cardiac [NON-STAFF] - 4 Weeks (You will receive a phone call in approximately 4-6 weeks for evaluation for cardiac rehab) Saroj Montenegro,Home Care [NON-STAFF] - 1-2 Days (director private to see patient the day after discharge, then 2-3 times per week until you start cardiac rehab. PT/OT will visit at least once, will continue to visit if necessary) Leonor Brandon, [Primary Care Provider] - 10/21/24 1:15 pm Fadi Fink MD [STAFF PHYSICIAN] - 11/10/24 2:45 pm Efren Johnson MD [STAFF PHYSICIAN] - 11/11/24 9:30 am Ambulatory/Diagnostic Orders: Complete Blood Count w/diff [LAB.AMB] Time Frame: 3 Days, Location: None Selected Comprehensive Metabolic Panel [LAB.AMB] Time Frame: 3 Days, Location: None Selected Activity/Diet/Wound Care/Special Instructions: Accu-Cheks before meals and at bedtime, maintain log of blood sugars, take to follow-up visit with PCP for further recommendations. Case management to provide glucometer and testing supplies. DISCHARGE INSTRUCTIONS: 1. No driving for 4 weeks, or until physician gives their ok. 2. The patient should sleep in their own bed, no medical bed needed. 3. Stairs are not an issue. If the bedroom is upstairs, it is advised that the patient go up at night and down in the morning for the first week. Go slowly, using handrail and take 1 step at a time. 4. DARRON hose are to be worn for 30 days post surgery or until physician discontinues. 5. Heart hugger is to be worn 100% of the time until physician discontinues.(except when showering) 6. No lifting, pushing, or pulling more than 10 pounds for 12 weeks. The physician will advise of any restriction changes. 7. The patient is expected to continue the prescribed walking program. 8. Continue pain control per as needed orders. 9. Continue with incentive spirometry and splinting/heart hugger until otherwise directed by the physician. 10. Must shower daily using liquid antibacterial soap 11. Routine sternal incision care. No powders, lotions, ointments on incisions. No dressings are necessary on incisions unless they are draining. Dermabond tape is to remain on sternal incision until surgeon follow-up. 12. Please call surgeon/HARDWOOD FLOOR FINISHER for temp greater than 101 F or purulent drainage from incisions. 13. You should weigh yourself daily, record and bring log with you to follow up appointments. 14. All prescriptions given by surgeon for 30 days. Refills need to be filled through city council member/primary care physician. 15. A Red armband has been placed on the patient. It should be worn for 30 days post discharge from surgery and will be removed by the cardiac surgeons. If an ER visit is necessary, please make sure the number on the Red armband is called before going to ER. 16. You have been referred to and are expected to begin Cardiac Rehab in approximately 4-6 weeks. 17. Quitting smoking is the most important step you can take to improve your health. For additional information and assistance to quit smoking, please call the [place] tobacco quit line (2-474-HMAI-NOW/ ) or online: https://www.[place].gov/[facility]/uwat-si-uiqfeht/chronicdiseases/tobacco/how-to-qu it-tobacco HOME HEALTH SERVICES TO PROVIDE: RN SKILLED HOME CARE SERVICES FOR POST-OP SURGICAL PATIENTS WITH THE FOLLOWING: Coronary Artery Bypass Surgery (CABG), Mitral Valve Replacement/Repair ( MVR), Aortic Valve Replacement/Repair (AVR) RN TO CONTINUE EDUCATION FROM ``ROAD TO A HEALTH HEART PATIENT EDUCATION MANUAL (GIVEN TO PATIENT IN THE HOSPITAL) MEDICATION RECONCILIATION WITH EDUCATION NEEDED ON FIRST HOME VISIT EMPHASIZE IMPORTANCE OF WEARING BREAST SUPPORT/HEART HUGGER ENCOURAGE USE OF INCENTIVE SPIROMETER 10 X EVERY HOUR WHILE AWAKE ENCOURAGE UTILIZATION OF LOWER EXTREMITY COMPRESSION STOCKINGS/DARRON HOSE and ELEVATE LEGS ABOVE LEVEL OF HEART WHILE AT REST. ENCOURAGE AMBULATION 3-5x/day INCREASING TOLERATES, WHILE AVOIDING EXTREMES IN TEMPERATURE FREQUENCY: RN TO OPEN THE PATIENT WITHIN 24 HOURS OF DISCHARGE FROM THE HOSPITAL WITH TELEHEALTH INSTALLED AT [facility], RN TO VISIT 2-3 X A WEEK FOR 4 WEEKS ESTABLISHED BY PATIENT NEEDS. LABORATORY: CBC, CMP TO BE DRAWN ON THE THIRD DAY HOME, (RAN STAT) FAX RESULTS TO [phone]. TELEHEALTH PARAMETERS: WEIGHT: NOTIFY MD OF WEIGHT GAIN OF 2 LBS IN 24 HOURS OR 5 LBS IN ONE WEEK HR: NOTIFY MD OF HR <55 BPM OR HR>100 BPM BP: NOTIFY MD IF BP <90/55 OR BP>140/100 O2 SAT: NOTIFY MD IF PO2<93% ON ROOM AIR SEND TELEHEALTH REPORT TO CAFETERIA SUPERVISOR AND CARDIOVASCULAR SURGEON THE FIRST WEEK OF CARE AND THEN BI-WEEKLY. PLEASE ADDITIONALLY COMMUNICATE ANY ABNORMALS AND NEW FINDINGS TO THE SURGEONS OFFICE. Discharge Disposition: HOME WITH HOME HEALTH SERVICES
--- NOTE | 2024-10-15 12:24 | P.PN ---
Subjective Progress Note Date: 10/15/24 49-year-old male patient was being seen in the intensive care is following earl nary artery bypass surgery. The patient underwent an urgent four-vessel bypass surgery including VERGARA to LAD and first diagonal and sequential left radial artery graft to second and third obtuse marginal branch and saphenous vein graft to PDA. The patient has multivessel coronary disease and the patient is status post inferior wall myocardial infarction secondary to RCA occlusion. He initially presented to us with heartburn and he ruled in for inferior wall myocardial infarction. Cardiac catheterization was done and subsequent and the patient was taken to the operating room for urgent revascularization. At the time of my evaluation, the patient was intubated on the mechanical ventilator. The patient was sedated with propofol running at 30 mcg/kg/min. The patient was on the mechanical ventilator on assist-control mode with rate of 14, tidal volume of 600, FiO2 of 100% with a PEEP of 10. Initial blood gas showed a pH of 7.29 with a pCO2 of 48 and pO2 of 231. Chest x-ray showed a dequate expansion of both lungs. Left lower remedy such issues were all in place. The patient had a [place] catheter placed. PA pressures were 35/26. Cardiac output was at 9.2 with an index of 3.6. Adequate urine output. No pressors. The cardiac rhythm is sinus. The patient was on nitroglycerin at 5 mcg/min and the patient was on insulin drip at 8 units an hour. White cell count at 17.7 with a hemoglobin 15.2 and a platelet count of 225. Output from the chest tubes are minimal less than 200 cc from each pleural and mediastinal chest tube. Remains hemodynamically stable. Noted the preoperative echocardiogram showed impairment in the LV function with an estimated ejection fraction of 30 to 35%. The patient is known to have hypertension, hyperlipidemia, type 2 diabetes mellitus and is a chronic smoker. He also has a positive family history for coronary artery disease. On 10/12/2024, the patient is being seen for a follow-up. The patient is postop day #1. The patient underwent coronary bypass surgery and coronary revascularization. On today's evaluation, the patient is on 5 L of oxygen by nasal cannula. The patient was extubated yesterday to nasal cannula. Melissa harman, the patient is a normal sinus rhythm. He has encountered some sinus tachycardia since extubation. The patient is on low-dose metoprolol 25 mg p.o. twice a day. Urine output is being monitored. Blood pressure is soft and the patient was given a dose of IV albumin overnight. Chest x-ray shows small left- sided pleural effusion. No pneumothorax. Chest tubes are in place. [place] in place. The output from the mediastinal chest tube has been 110 cc over the past 8 hours, none from the left pleural. The patient's cardiac output is 8.3 with an index of 3.3. PA pressures of 33/18. Remains on insulin drip at 7 units an hour. Remains on nitroglycerin drip at 5 mcg/min. White cell count of 15.7 with a hemoglobin 12.7 and a platelet count of 205. BUN is 6 with a creatinine of 0.7. Sodium levels at 134 with a potassium level of 4.2. LFTs are within normal limits. Using incentive spirometer. Neurologically intact. On 10/13/2024, the patient is being seen for a follow-up. Patient is doing extremely well. No specific complaints. Sitting up in a chair. Continues to be in sinus tachycardia although seems to be less tachycardic compared to yesterday. The patient is currently on metoprolol 50 mg p.o. twice daily and Cardizem 60 mg p.o. 3 times daily. He remains also on insulin drip running at 20 units an hour. Hemodynamically stable. Cardiac rhythm is sinus. Chest tubes are in place. Output is minimal. Chest x-ray from today is not showing any acute abnormalities. No evidence of any pneumothorax. Small atelectatic changes and effusion lung bases bilaterally. The patient has no new complaints. Neurologically intact. White cell count of 12.9 with a hemoglobin 12 and a platelet count of 168. Sodium is at 132 with a BUN of 9 and a creatinine of 0.8. Serum bicarb is at 23. Afebrile. The patient is currently postop day #2. Using the incentive spirometer. Ambulating. On 10/14/2024, seen the patient for a follow-up. Doing extremely well on room air oxygen. Using the incentive spirometer. Following approximately 1500 on the spirometer. Chest x-ray shows no evidence of any pneumothorax. Limited atelectatic changes left lung base. Patient is postop day #3. Continues to have some degree of sinus tachycardia which is improved and the patient is currently on metoprolol 100 mg p.o. twice daily and Cardizem 60 mg p.o. 3 times daily. The patient remains on aspirin and Plavix. He was also started on Cozaar 12.5 mg p.o. daily. Ambulating. Blood work from today shows a white cell count of 9.5 with a hemoglobin 10.8 and a platelet count of 195. BUN is 11 with a creatinine of 0.77 and sodium levels at 135. LFTs are essentially within normal limits. No other new complaints for now. On 10/15/2024, the patient on room air oxygen. He is ambulating. Chest x-ray shows some atelectatic changes in lung base bilaterally. No pneumothorax. Hemodynamically stable. Cardiac rhythm is sinus. All of the chest have been removed. The white cell count of 9.6 with a hemoglobin 10.8 and a platelet count of 270. BUN 17 with a creatinine of 0.7. Sodium level is at 136. The patient is status post 5 vessel coronary bypass surgery. The patient has also hyperlipidemia, diabetes mellitus type 2, and osteoarthritis. In terms of blood sugar control, the patient on Levemir insulin currently on 22 units twice daily and sliding scale coverage. Remains on aspirin. Remains on Plavix. Remains on metoprolol and Cardizem for sinus tachycardia. Objective - Vital Signs Vital signs: Vital Signs Temp 98.0 F 10/15/24 08:37 Pulse 102 H 10/15/24 08:37 Resp 16 10/15/24 08:37 BP 128/78 10/15/24 08:37 Pulse Ox 97 10/15/24 08:37 FiO2 50 10/11/24 17:16 Intake & Output 10/14/24 10/15/24 10/15/24 18:59 06:59 18:59 Intake Total 10 Output Total 700 700 Balance -700 -700 10 Weight 128 kg Intake: IV 10 Invasive Line 1 10 Output: Urine 700 700 Other: Voiding Method Indwelling Catheter Toilet # Bowel Movements 0 ABP, PAP, CO, CI - Last Documented Arterial Blood Pressure 87/86 Pulmonary Artery Pressure 30/14 Cardiac Output 8.3 Cardiac Index 3.3 - Labs CBC & Chem 7: 10/15/24 05:55 10/15/24 05:55 Labs: Abnormal Lab Results - Last 24 Hours (Table) 10/14/24 10/14/24 10/14/24 Range/Units 11:23 16:27 20:25 RBC (4.30-5.90) m/uL Hgb (13.0-17.5) gm/dL Hct (39.0-53.0) % Sodium (137-145) mmol/L Carbon Dioxide (22-30) mmol/L Glucose (74-99) mg/dL POC Glucose (mg/dL) 147 H 209 H 194 H (70-110) mg/dL 10/15/24 10/15/24 10/15/24 Range/Units 05:55 05:55 06:00 RBC 3.36 L (4.30-5.90) m/uL Hgb 10.8 L (13.0-17.5) gm/dL Hct 31.6 L (39.0-53.0) % Sodium 136 L (137-145) mmol/L Carbon Dioxide 20 L (22-30) mmol/L Glucose 133 H (74-99) mg/dL POC Glucose (mg/dL) 156 H (70-110) mg/dL Assessment and Plan Plan: Multivessel coronary artery disease, symptoms of the patient is status post urgent coronary artery bypass grafting x 5 with sequential VERGARA to first diagonal and LAD, sequential left radial artery graft to second and third obtuse marginal branches, saphenous vein graft to posterior descending coronary artery. The patient is currently postop day # 4. Cardiac rhythm is sinus tachycardia the patient is currently on a combination of metoprolol and Cardizem. All of the chest tubes have been removed and the patient remains hemodynamically stable. Postthoracotomy related to bypass surgery, extubated the patient is currently on room air oxygen. Chest tubes have been removed Sinus tachycardia, improving, currently on a combination of Cardizem and metoprolol Status post inferior wall myocardial infarction, non-ST segment elevation myocardial infarction Ischemic cardiomyopathy with an ejection fraction of 30 to 35%, preop Diabetes mellitus type 2, currently on insulin drip for blood sugar control Hypertension Hyperlipidemia History of smoking Plan Continue using incentive spirometer Pulmonary toileting Patient is currently on room air oxygen Chest tubes have been removed Metoprolol 100 mg p.o. twice daily Cardizem 60 mg p.o. 3 times daily Cozaar 12.5 mg p.o. daily Continue Levemir insulin 22 units twice daily and 5 units with meals and sliding scale coverage Monitor blood sugar Aspirin and Plavix Monitor output from the chest tubes Chest x-ray was reviewed Hemodynamically stable The patient will likely go home today.
--- NOTE | 2024-10-17 17:30 | CDI ---
Documentation Clarification Form Date: 10/17/2024 05:21:04 PM From: Shari Steele Phone: Admit Date: 10/10/2024 01:22:00 PM Patient Name: Marco Castillo Visit Number: [id number] Discharge Date: 10/15/2024 11:33:00 AM ATTENTION: The Clinical Documentation Specialists (CDI) and [facility] Coding Staff appreciate your assistance in clarifying documentation. Please respond to the clarification below the line at the bottom and electronically sign. The CDI & [facility] Coding staff will review the response and follow-up if needed. Please note: Queries are made part of the Legal Health Record. If you have any questions, please contact the author of this message via ITS. Doctor/Provider: Fadi Fink Acute inferior wall myocardial infarction is documented per throughout the Progress Notes. NSTEMI is likewise documented throughout the Progress Notes. Clarification regarding the type of MO is requested. History/Risk Factors: 49yo M, CAD w MO,unstable angina, ICM, HTN, HLD, untreatedDMII with hyperglycemia (med noncompliance) A1c 9.4%, obesity, OA, smoker, dailymarijuana use, FHx CAD Clinical Indicators: Troponin: 4026 EKG Results: abnormal EKG Echo: Limited echo for LVEF. LVEF 35 to 40%. Moderately increased LVcavitysize. Inferior wall hypokinesia. Small posteriorpericardial effusionwith no signs of tamponade. Treatment: UrgentCABGx 5 with sequential VERGARA to first diagonal and LAD, sequential left radial arterygraftto second and third obtuse marginal branches, saphenous veingraftto posterior descending coronary artery. Occlusionof the left atrial appendage with 35 mm AtriCure clip. Endoscopic harvestof the left radial artery and the right greater saphenous vein from midcalf to groin Please clarify the type of MO, if known: [ ] STEMI (type 1) [ ] NSTEMI (type 1) [ x ] Unable to determine [ ] Other Condition, please specify Ask cardiology (Template Last Revised: December 2020) MTDD
== END 2024-10-15 11:33 | disposition home health service (06) | DRG 236 ==
LOC: 3SCARD 13:22 → 2SICU 10-11 08:37 → 3SCARD 10-14 14:49
PROVIDERS: ADMIT Thoracic Surgery (Cardiothoracic Vascular Surgery); ATTEND Thoracic Surgery (Cardiothoracic Vascular Surgery)
PROC: 06BP4ZZ Excision of Right Saphenous Vein, Percutaneous Endoscopic Approach (ICD-10-PCS; 2024-10-11)
PROC: 07B70ZX Excision of Thorax Lymphatic, Open Approach, Diagnostic (ICD-10-PCS; 2024-10-11)
PROC: B24BZZ4 Ultrasonography of Heart with Aorta, Transesophageal (ICD-10-PCS; 2024-10-11)
PROC: 02L70CK Occlusion of Left Atrial Appendage with Extraluminal Device, Open Approach (ICD-10-PCS; 2024-10-11)
PROC: 02100Z9 Bypass Coronary Artery, One Artery from Left Internal Mammary, Open Approach (ICD-10-PCS; principal; 2024-10-11 19:50)
PROC: 02110A3 Bypass Coronary Artery, Two Arteries from Coronary Artery with Autologous Arterial Tissue, Open Approach (ICD-10-PCS; 2024-10-11 19:50)
PROC: 03BB4ZZ Excision of Right Radial Artery, Percutaneous Endoscopic Approach (ICD-10-PCS; 2024-10-11 19:50)
PROC: 0211093 Bypass Coronary Artery, Two Arteries from Coronary Artery with Autologous Venous Tissue, Open Approach (ICD-10-PCS; 2024-10-11 19:50)
DX: I21.9 Acute myocardial infarction, unspecified (principal); Z68.33 Body mass index [BMI] 33.0-33.9, adult; I50.9 Heart failure, unspecified; I11.0 Hypertensive heart disease with heart failure; E11.65 Type 2 diabetes mellitus with hyperglycemia; I34.0 Nonrheumatic mitral (valve) insufficiency; E03.9 Hypothyroidism, unspecified; E66.9 Obesity, unspecified; I25.10 Atherosclerotic heart disease of native coronary artery without angina pectoris; E78.5 Hyperlipidemia, unspecified; R00.0 Tachycardia, unspecified; F17.210 Nicotine dependence, cigarettes, uncomplicated; I25.5 Ischemic cardiomyopathy; G89.29 Other chronic pain; T38.3X6A Underdosing of insulin and oral hypoglycemic [antidiabetic] drugs, initial encounter; Z91.148 Patient's other noncompliance with medication regimen for other reason; Z82.49 Family history of ischemic heart disease and other diseases of the circulatory system; Z79.1 Long term (current) use of non-steroidal anti-inflammatories (NSAID); Z79.899 Other long term (current) drug therapy; I25.2 Old myocardial infarction
CPT/HCPCS: 71045; 71046; 71250; 80048; 80053; 80061; 80074; 82330; 82805; 83036; 83735; 84443; 85025; 85027; 85610; 85730; 86850; 86891; 86900; 86901; 86920; 87070; 88305; 93306; 93308; 93880; 93922; 93970; 94002; 94640; 94760